=== PATIENT | male | born 1960 | race Caucasian/White ===

== ENCOUNTER 2021-08-27 09:22 | Inpatient (IN) | payer SELFPAY ==
[2021-08-27] VITALS (64 sets, daily range): BP systolic 101–142; BP diastolic 55–80; PULSE 74–116; RESP 11–28; TEMP 36.4–37.3; O2SAT 93–100; BMI 21.4
--- NOTE | 2021-08-27 09:33 | DI.RAD.S_ITS ---
PROCEDURE: XR CHEST 1V INDICATIONS: chest pain TECHNIQUE: One view of the chest was acquired. COMPARISON: None. FINDINGS: Surgical changes and devices: Sternotomy wires and mediastinal clips are seen. Lungs and pleura: Lungs are clear. No pleural effusions or pneumothorax. Mediastinum: Mediastinal contours appear normal. Heart size is normal. Bones and chest wall: No suspicious bony lesions. Overlying soft tissues appear unremarkable. IMPRESSION: No acute abnormality is seen on this portable chest study. Sternotomy wires and mediastinal clips can be seen. Dictated by: Tyshawn Nix M.D. on 08/27/2021 at 9:15 Approved by: Tyshawn Nix M.D. on 08/27/2021 at 9:17
--- NOTE | 2021-08-27 09:36 | ED_ITS ---
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 Patient is not anticoagulated but has been taking Goody powders regularly recently. who comes emergency department with complaint of thoracic back pain radiating around to the front for the past week. Patient states he was getting tightness in his chest. He denies any shortness of breath does have some pleuritic discomfort. He was seen at [facility] and started on azithromycin and Augmentin as well as Zofran and Percocet. Patient has continued to have persistent symptoms he develops nausea and vomiting starting SundayAugust 24, patient initially had constipation was given laxatives and then developed black discolored stools and diarrhea. He has had 1 episode of syncope today while throwing up. He states he is having some difficulty with urination starting and emptying his bladder but that had resolved. He denies any pain radiating down his legs he has had some numbness and tingling which she describes is new. Patient is visiting the area from [place]. His medication list includes amlodipine, atorvastatin, carvedilol, dapsone, Lasix, isosorbide, losartan, pantoprazole and spironolactone. He does not take an aspirin, Plavix or other daily thinners according him in his Related Data Home Medications Medication Instructions Recorded Confirmed amlodipine 5 mg tablet 1 tab PO BID 08/27/21 08/27/21 atorvastatin 20 mg tablet 1 tab PO DAILY 08/27/21 08/27/21 carvedilol 6.25 mg tablet 1 tab PO BID 08/27/21 08/27/21 dapsone 100 mg tablet 1 tab PO DAILY 08/27/21 08/27/21 isosorbide dinitrate 5 mg tablet 1 tab PO BID 08/27/21 08/27/21 losartan 50 mg tablet 1 tab PO DAILY 08/27/21 08/27/21 pantoprazole 40 mg tablet,delayed 1 tab PO DAILY 08/27/21 08/27/21 release spironolactone 25 mg tablet 1 tab PO DAILY 08/27/21 08/27/21 Allergies Allergy/AdvReac Type Severity Reaction Status Date / Time No Known Drug Allergies Allergy Verified 08/27/21 09:34 Review of Systems Review of Systems ROS Unobtainable: All systems reviewed & are unremarkable except as noted in HPI and below Patient History Medical History (Updated 08/27/21 @ 15:08 by Tracy Day MD) CAD (coronary artery disease) Gastric ulcer Gluten enteropathy Hyperlipidemia Hypertension Surgical History (Updated 08/27/21 @ 15:08 by Tracy Day MD) History of nephrectomy Hx of CABG Family History (Updated 08/27/21 @ 15:12 by Tracy Day MD) Mother Stroke Father Stroke Social History household members: spouse Smoking Status: Current every day smoker Smoking Status: Current every day smoker tobacco type: cigarettes alcohol intake frequency: holidays/special occasions only Substance Use Type: does not use Exam Narrative Exam Narrative: GEN: Pale-appearing male, alert and oriented x 3, patient appears to be in moderate distress. HEENT: Atraumatic, pupils are equal round reactive to light, extraocular movements are intact, nares are clear, positive for conjunctival pallor. Throat is clear without any exudates, erythema, tonsillar enlargement or uvular deviation, no facial droop. HEART: Regular rate and rhythm without murmur, clicks, rubs. Pulses are equal in upper and lower extremities. LUNGS:Lungs clear to auscultation, no wheezes, rales, crackles, chest moves symmetrically, No no tachypnea accessory muscle use. ABD:bowel sounds normal, soft, non-tender, no guarding, rebound, rigidity, no masses noted, no hepatosplenomegaly, stool occult is positive. Patient has hard stool on rectal exam. No pulsatile mass or bruit noted. :No CVA tenderness BACK: No cervical, thoracic or lumbar vertebral point tenderness. Patient has normal range of motion. MSCL: Non-tender, no muscle atrophy, muscles strength 5/5 upper and lower extremities, full range of motion NEURO:CN 2-12 intact, sensation normal Initial Vital Signs Initial Vital Signs: Vital Signs Temperature 97.6 F 08/27/21 09:23 Pulse Rate 96 H 08/27/21 09:23 Respiratory Rate 15 08/27/21 09:23 Blood Pressure 106/59 L 08/27/21 09:23 Pulse Oximetry 100 08/27/21 09:23 Oxygen Delivery Method 08/27/21 09:23 Course Orders Ordered: ED Orders 08/27/21 09:28 Complete Blood Count AUTO DIFF Stat Comprehensive Metabolic Panel Stat Lipase Stat Magnesium Stat Partial Thromboplastin Time Stat Prothrombin Time INR Stat Troponin & CK Cardiac Panel Stat 08/27/21 09:33 XR chest 1V Stat EKG-12 Lead Stat 08/27/21 09:39 COVID19 -Nasal RAPID/Pre-Proc Stat 08/27/21 09:53 CT angio chest abdomen pelvis Stat 08/27/21 09:56 Blood Culture Stat PRBC [Packed Cells] Stat Type and Screen Stat 08/27/21 11:31 Trop I [Troponin I] Stat 08/27/21 11:45 Procalcitonin Stat 08/27/21 16:12 Lactate (Lactic Acid) Stat Dapsone (Dapsone 100 Mg Tablet) 100 mg PO BID [facility] Hydromorphone HCl (Hydromorphone 0.5 Mg Inj) 0.5 mg IV Q4H PRN PRN Reason: Breakthrough pain only (8-10) Last Admin: 08/27/21 15:53 Dose: 0.5 mg Documented By: LEE Piperacillin Sod/Tazobactam (Sod 3.375 gm/ Sodium Chloride) 100 mls @ 25 mls/hr IV Q8H [facility] Last Admin: 08/27/21 16:15 Dose: 25 mls/hr Documented By: LEE Metronidazole (Flagyl) 500 mg in 100 mls @ 100 mls/hr IV Q8H [facility] Naloxone HCl (Naloxone 0.4 Mg/Ml Vial) 0.2 mg IV Q2MIN PRN PRN Reason: Opiate Reversal Ondansetron HCl (Ondansetron 4 Mg/2 Ml Inj) 4 mg IV Q6HR PRN PRN Reason: Nausea And Vomiting Last Admin: 08/27/21 16:04 Dose: 4 mg Documented By: LEE Pantoprazole Sodium (Pantoprazole 40 Mg Vial) 40 mg IV BID [facility] Discontinued Medications Fentanyl (Fentanyl 100 Mcg/2 Ml Inj) 50 mcg IV NOW ONE Stop: 08/27/21 09:55 Last Admin: 08/27/21 10:11 Dose: 50 mcg Documented By: RAYNA Sodium Chloride (Normal Saline 0.9%) 1,000 mls @ 500 mls/hr IV BOLUS ONE Stop: 08/27/21 11:52 Last Infusion: 08/27/21 10:59 Dose: 0 mls/hr Documented By: Admin: 08/27/21 10:12 Dose: 500 mls/hr Documented By: RAYNA Metronidazole (Flagyl) 500 mg in 100 mls @ 100 mls/hr IV NOW ONE Stop: 08/27/21 11:49 Last Infusion: 08/27/21 12:28 Dose: 0 mls/hr Documented By: RAYNA(2) Admin: 08/27/21 11:04 Dose: 100 mls/hr Documented By: RAYNA Levofloxacin (Levaquin) 750 mg in 150 mls @ 100 mls/hr IV NOW ONE Stop: 08/27/21 12:19 Last Infusion: 08/27/21 12:48 Dose: 0 mls/hr Documented By: Admin: 08/27/21 11:04 Dose: 100 mls/hr Documented By: RAYNA Sodium Chloride (Normal Saline 0.9%) 2,121 mls @ 707 mls/hr 30 ml/kg infuse over 3 hr (2121 ml) IV NOW ONE Stop: 08/27/21 13:51 Last Infusion: 08/27/21 12:52 Dose: 0 mls/hr Documented By: Admin: 08/27/21 11:05 Dose: 707 mls/hr Documented By: RAYNA Morphine Sulfate (Morphine 4 Mg/Ml Inj) 4 mg IV NOW ONE Stop: 08/27/21 12:08 Last Admin: 08/27/21 12:09 Dose: 4 mg Documented By: RAYNA Ondansetron HCl (Ondansetron 4 Mg/2 Ml Inj) 4 mg IV NOW ONE Stop: 08/27/21 09:55 Last Admin: 08/27/21 10:11 Dose: 4 mg Documented By: RAYNA Pantoprazole Sodium (Pantoprazole 40 Mg Vial) 80 mg IV NOW ONE Stop: 08/27/21 09:54 Last Admin: 08/27/21 10:11 Dose: 80 mg Documented By: RAYNA Consultations Consultation #1: Dr. Herrera in department to evalute patient. Continue with Protonix, transfuse and scope either today or tomorrow. Will hold on surgical treatment at this moment as potential perforation would be small. Consultation #2: Dr. Day, hospitalist accepts for admission. Vital Signs Vital signs: Vital Signs - 8 hr 08/27/21 09:49 08/27/21 09:49 08/27/21 10:00 Temperature Pulse Rate 102 H Respiratory Rate 16 Blood Pressure 111/60 112/58 L Pulse Oximetry 95 08/27/21 10:00 08/27/21 10:15 08/27/21 10:15 Temperature Pulse Rate 100 H 107 H Respiratory Rate 20 16 Blood Pressure 106/57 L Pulse Oximetry 95 94 08/27/21 10:30 08/27/21 10:32 08/27/21 10:32 Temperature Pulse Rate 97 H 101 H Respiratory Rate 13 13 Blood Pressure 120/56 L Pulse Oximetry 93 95 08/27/21 10:45 08/27/21 10:45 08/27/21 11:00 Temperature Pulse Rate 95 H Respiratory Rate 14 Blood Pressure 120/59 L 126/60 Pulse Oximetry 95 08/27/21 11:00 08/27/21 11:15 08/27/21 11:15 Temperature Pulse Rate 98 H 107 H Respiratory Rate 14 16 Blood Pressure 110/66 Pulse Oximetry 96 97 08/27/21 11:30 08/27/21 11:30 08/27/21 11:50 Temperature 99.1 F Pulse Rate 107 H 112 H Respiratory Rate 15 12 Blood Pressure 115/67 115/68 Pulse Oximetry 97 08/27/21 11:55 08/27/21 11:59 08/27/21 11:45 Temperature 99.1 F 98.6 F Pulse Rate 110 H 112 H Respiratory Rate 20 18 Blood Pressure 116/68 142/69 H 115/68 Pulse Oximetry 08/27/21 11:45 08/27/21 11:55 08/27/21 11:55 Temperature 99.1 F 98.6 F Pulse Rate 111 H 111 H Respiratory Rate 14 14 Blood Pressure 116/68 Pulse Oximetry 97 98 08/27/21 12:00 08/27/21 12:00 08/27/21 12:15 Temperature 98.6 F 98.6 F Pulse Rate 113 H Respiratory Rate 16 Blood Pressure 142/69 H 114/61 Pulse Oximetry 98 08/27/21 12:15 Temperature Pulse Rate 116 H Respiratory Rate 13 Blood Pressure Pulse Oximetry 96 MDM - Weakness Lab Data Result diagrams: 08/27/21 09:28 08/27/21 09:28 Labs: Lab Results 08/27/21 08/27/21 08/27/21 Range/Units 09:28 09:28 09:28 WBC 17.6 H (4.5-11.0) X10^3/uL RBC 1.84 L (4.5-5.9) X10^6/uL Hgb 6.5 L* (13.5-17.5) g/dL Hct 19.0 L* (41-53) % MCV 103.5 H (80-100) fL MCH 35.5 H (26-34) PG MCHC 34.3 (30-36) % RDW 13.5 (11.6-14.8) % Plt Count 327 (150-400) X10^3/uL Neut % (Auto) 84.0 H (50-75) % Lymph % (Auto) 11.2 L (25-40) % [place] % (Auto) 4.2 (3-14) % Eos % (Auto) 0.1 L (2-4) % Baso % (Auto) 0.5 (0-2) % Neut # (Auto) 13694 H (8220-2744) /uL Lymph # (Auto) 2000 (1725-1684) /uL [place] # (Auto) 700 (0-900) /uL Eos # (Auto) 0 (0-450) /uL Baso # (Auto) 100 (0-100) /uL PT 12.3 (10.1-12.7) SECONDS INR 1.1 (0.9-1.3) APTT 26 L (26.4-36.2) SECONDS Sodium 127 L (137-145) mmol/L Potassium 4.4 (3.4-5.1) mmol/L Chloride 96 L (98-107) mmol/L Carbon Dioxide 24 (22-32) mmol/L BUN 47 H (9-20) mg/dL Creatinine 1.56 H (0.66-1.25) mg/dL Estimated GFR 51 L (>60) mL/min BUN/Creatinine Ratio 30.1 H (6-22) Glucose 220 H (70-100) mg/dL Calcium 8.1 L (8.4-10.2) mg/dL Magnesium 2.2 (1.6-2.3) mg/dL Total Bilirubin 0.3 (0.2-1.3) mg/dL AST 23 (17-59) IU/L ALT 20 (<50) IU/L Alkaline Phosphatase 57 (38-126) U/L Total Creatine Kinase 21 L (55-170) U/L CK-MB (CK-2) TNP CK-MB (CK-2) Rel Index TNP Troponin I < 0.012 (0.01-0.034) ng/mL Total Protein 5.3 L (6.3-8.2) g/dL Albumin 3.0 L (3.5-5.0) g/dL Globulin 2.3 (1.7-4.1) g/dL Albumin/Globulin Ratio 1.3 (1.0-2.8) Lipase 15 L (23-300) U/L Procalcitonin (<0.5) ng/mL SARS-CoV-2 (PCR) (Negative) Blood Type Antibody Screen Crossmatch 08/27/21 08/27/21 08/27/21 Range/Units 09:39 09:56 11:31 WBC (4.5-11.0) X10^3/uL RBC (4.5-5.9) X10^6/uL Hgb (13.5-17.5) g/dL Hct (41-53) % MCV (80-100) fL MCH (26-34) PG MCHC (30-36) % RDW (11.6-14.8) % Plt Count (150-400) X10^3/uL Neut % (Auto) (50-75) % Lymph % (Auto) (25-40) % [place] % (Auto) (3-14) % Eos % (Auto) (2-4) % Baso % (Auto) (0-2) % Neut # (Auto) (2317-6899) /uL Lymph # (Auto) (5008-6856) /uL [place] # (Auto) (0-900) /uL Eos # (Auto) (0-450) /uL Baso # (Auto) (0-100) /uL PT (10.1-12.7) SECONDS INR (0.9-1.3) APTT (26.4-36.2) SECONDS Sodium (137-145) mmol/L Potassium (3.4-5.1) mmol/L Chloride (98-107) mmol/L Carbon Dioxide (22-32) mmol/L BUN (9-20) mg/dL Creatinine (0.66-1.25) mg/dL Estimated GFR (>60) mL/min BUN/Creatinine Ratio (6-22) Glucose (70-100) mg/dL Calcium (8.4-10.2) mg/dL Magnesium (1.6-2.3) mg/dL Total Bilirubin (0.2-1.3) mg/dL AST (17-59) IU/L ALT (<50) IU/L Alkaline Phosphatase (38-126) U/L Total Creatine Kinase (55-170) U/L CK-MB (CK-2) CK-MB (CK-2) Rel Index Troponin I < 0.012 (0.01-0.034) ng/mL Total Protein (6.3-8.2) g/dL Albumin (3.5-5.0) g/dL Globulin (1.7-4.1) g/dL Albumin/Globulin Ratio (1.0-2.8) Lipase (23-300) U/L Procalcitonin (<0.5) ng/mL SARS-CoV-2 (PCR) Negative (Negative) Blood Type O Positive Antibody Screen Negative Crossmatch See Detail 08/27/21 Range/Units 11:45 WBC (4.5-11.0) X10^3/uL RBC (4.5-5.9) X10^6/uL Hgb (13.5-17.5) g/dL Hct (41-53) % MCV (80-100) fL MCH (26-34) PG MCHC (30-36) % RDW (11.6-14.8) % Plt Count (150-400) X10^3/uL Neut % (Auto) (50-75) % Lymph % (Auto) (25-40) % [place] % (Auto) (3-14) % Eos % (Auto) (2-4) % Baso % (Auto) (0-2) % Neut # (Auto) (0451-8769) /uL Lymph # (Auto) (0083-6900) /uL [place] # (Auto) (0-900) /uL Eos # (Auto) (0-450) /uL Baso # (Auto) (0-100) /uL PT (10.1-12.7) SECONDS INR (0.9-1.3) APTT (26.4-36.2) SECONDS Sodium (137-145) mmol/L Potassium (3.4-5.1) mmol/L Chloride (98-107) mmol/L Carbon Dioxide (22-32) mmol/L BUN (9-20) mg/dL Creatinine (0.66-1.25) mg/dL Estimated GFR (>60) mL/min BUN/Creatinine Ratio (6-22) Glucose (70-100) mg/dL Calcium (8.4-10.2) mg/dL Magnesium (1.6-2.3) mg/dL Total Bilirubin (0.2-1.3) mg/dL AST (17-59) IU/L ALT (<50) IU/L Alkaline Phosphatase (38-126) U/L Total Creatine Kinase (55-170) U/L CK-MB (CK-2) CK-MB (CK-2) Rel Index Troponin I (0.01-0.034) ng/mL Total Protein (6.3-8.2) g/dL Albumin (3.5-5.0) g/dL Globulin (1.7-4.1) g/dL Albumin/Globulin Ratio (1.0-2.8) Lipase (23-300) U/L Procalcitonin 0.95 H (<0.5) ng/mL SARS-CoV-2 (PCR) (Negative) Blood Type Antibody Screen Crossmatch Imaging Data CT chest/abd/pelvis: Radiologist Impression: 86 ? Kirstie Hong, DO [facility] Routine Call Back Main ED ?10? My List ?5? Waiting ?1? Surge ED ?0? R02? Tenzler? Irene? 61 F? With Nurse? 1h 13m? 4-Less Urgent? ?? Skin/Abscess/Foreign Body? rash on arms/face? ?? No Time Seen? REG ER? No Document? Sign Up Rika Baird Order BP 208/103 Pulse 90 Resp 14 Temp 99.2 F O2 Sat 99% (RA) R04? Pokrova? Lux? 24 M? With Doctor? 1h 41m? 4-Less Urgent? ?? Extremity Injury, Lower? poss. broken ankles/heel? ?? 08/27/21 10:02? REG ER? Draft? Kirstie Baird ? Order BP 139/63 Pulse 89 Resp 14 Temp 98.6 F O2 Sat 98% (RA) Imaging MAR R05? Hills? Kaylyn? 74 F? With Doctor? 3h 16m? 3-Urgent? ?? Abdominal Pain? right lower abd pain? ?? 08/27/21 07:57? REG ER? Draft? Kirstie Baird ? Order BP 149/69 Pulse 54 Resp 18 Temp O2 Sat 95% Urinalysis... ?Chem Lipase Sta... ?Complete B... Imaging NPO Diet EKG-12 [facility]... Cardiac mo... R06? Jitendra? Catracho? 87 M? With Doctor? 29m? 4-Less Urgent? ?? Eye Problems? Eye drainage,jaw pain,COVID 9 days ago.? ?? 08/27/21 10:34? REG ER? Draft? Kirstie Baird visual acuity please Order BP 132/60 Pulse 72 Resp 18 Temp 98 F O2 Sat 93% (RA) MAR Complete B... Chem C-Reactive... Erythrocyt... R07? [place]? José? 11 M? In Room? 1h 37m? 4-Less Urgent? ?? Upper Respiratory Symptoms? fever day 3 stuffy nose sob? ISO, C19S/S? No Time Seen? REG ER? No Document? Sign Up Tracy Daugherty Order BP Pulse 104 Resp 18 Temp 97.5 F O2 Sat 98% (RA) POC/[place] Respirator... R08? Rosy? Gigi? 60 M? Pending Admission? 1h 30m? 2-Emergent? ?? Syncope? weakness, vomitting, passed out? ?? 08/27/21 09:34? REG ER? Draft? Kirstie Daugherty needs repeat trop 1130am? Order BP 120/56 Pulse 101 Resp 13 Temp O2 Sat 95% ?Troponin &... COVID19 -N... ?Lipase Sta... ?Complete B... ?Chem Magnesium ... ?Partial Th... Prothrombi... Imaging MAR Cardiac mo... NPO Diet EKG-12 [facility]... Microbiolo... Packed Hailey... Type and S... Lactate (L... Procalcito... R10? Giuliano Marin? Neris? 64 F? In Room? 14m? No Chief Complaint? sharp pain in lower back hurts to take deep breath? ?? No Time Seen? REG ER? No Document? Sign Up Order NPO Diet Lipase Sta... Partial Th... Prothrombi... EKG-12 [facility]... Complete B... Chem Cardiac mo... POC/[place] Imaging R11? Tiarra? Gigi? 86 M? Boarding? 8h 12m? 3-Urgent? ?? Urogenital-Male? Hematuria? ?? 08/27/21 02:45? REG ER? Draft? Kirstie Daugherty FFP ordered. need recheck h/h and type and screen if still here at 1430 Order BP 162/69 Pulse Resp Temp O2 Sat ?Complete B... ?Prothrombi... ?Chem Imaging ?Hemoglobin... COVID19 -N... ?Urinalysis... ABO RH Typ... MAR Microbiolo... Fresh Froz... R12? Elizabeth Walker? Suzanne? 83 F? In Room? 38m? 4-Less Urgent? ?? Upper Respiratory Symptoms? COUGH SORE THROAT DIZZY BALANCE OFF? Sepsis? No Time Seen? REG ER? No Document? Sign Up Kerri Daugherty Order BP 167/67 Pulse 99 Resp 24 Temp 102.5 F O2 Sat 95% (RA) MAR COVID19 -N... Complete B... Lipase Sta... Partial Th... Prothrombi... NPO Diet Chem Magnesium ... Troponin &... EKG-12 [facility]... Cardiac mo... Imaging Lactate (L... NPO Diet Procalcito... Microbiolo... WRoom? Wiscomb? Guero? 74 F? Registered? 8m? No Chief Complaint? rectal bleeding abd cramps diareha? ?? No Time Seen? REG ER? No Document? Sign Up Order Imaging - CT angio chest abdomen pelvis; XR chest 1V Gigi Gallegos??60??M??1960 ? Allergy/Adv: No Known Drug Allergies Close Results Imaging ACTIVITY DATE EXAM STATUS AUTHOR 08/27/21 09:53 Chest/Abdomen/Pelvis CTA Signed Joaquina Nixe 08/27/21 09:33 Chest X-Ray Signed DinahTyshawn Imaging Reports Close Chest/Abdomen/Pelvis CTA (Signed) Joaquina Nixe - 08/27/21 Chest X-Ray (Signed) DinahTyshawn - 08/27/21 Launch?[id number] [id number] CT Scan Report Signed Patient: Gigi Gallegos MR#: [id number] : 1960 Acct:[id number] Age/Sex: 60 / M Date of Service: 08/27/21 Loc: ED Accession Number: [id number] ?? Procedure: CT angio chest abdomen pelvis Ordering Provider: Kirstie Hong D.O. PROCEDURE:? CT ANGIO CHEST ABDOMEN PELVIS ? INDICATIONS:? thoracic chest/back pain x 1 week, low hgb ? TECHNIQUE:? Precontrast 5 mm thick sections acquired from the lung apices to the iliac crests.? After the administration of intravenous contrast, 2.5 mm thick sections again acquired from the lung apices to the iliac crests.? Maximum intensity projection (MIP) oblique sagittal and coronal reformats were then acquired.? For radiation dose reduction, the following was used:? automated exposure control.? ? COMPARISON:? [facility], CR, XR CHEST 1V, 08/27/2021, 9:56. ? FINDINGS:? Image quality:? Excellent.? ? AORTA:? On precontrast imaging, no hyperdense mural hematomas are seen.? On postcontrast imaging, the aorta demonstrates normal caliber, without dissection or aneurysm. ? ? CHEST:? Lungs and pleura:? No acute airspace opacities.? No pleural effusions or pneumothorax.? Central and peripheral airways are patent and normal in caliber.? ? Mediastinum:? Sternotomy wires and mediastinal clips are seen.? Moderate coronary artery calcification is seen.? Heart size is normal.? No pericardial effusion.? No mediastinal or hilar adenopathy by size criteria.? Central pulmonary arteries are normal in size.? Esophagus is normal in caliber.? No hiatal hernias.? ? Bones and chest wall:? No axillary adenopathy by size criteria.? Thyroid gland demonstrates no significant abnormality.? No suspicious bony lesions.? No vertebral body compression fractures.? ? ? ABDOMEN:? Vasculature:? Celiac trunk and mesenteric arteries are patent.? Renal arteries are also patent.? ? Solid organs:? Liver is normal in size and enhancement.? Gallbladder has been removed.? Biliary system is non dilated.? Pancreas enhances normally.? Spleen is normal in size and enhancement. Incidental note is made of an accessory splenule along the anterior aspect of the primary spleen.? No adrenal nodules.? ? This patient is status post left nephrectomy.? No abnormal soft tissue can be seen within the left nephrectomy bed.? At the inferior pole of the right kidney, there is an area poor enhancement seen.? The right kidney is otherwise unremarkable.? There is no right-sided hydronephrosis. Peritoneum and bowel:? Focal wall thickening is seen involving the distal stomach, with minimal surrounding inflammatory change.? There is apparent extraluminal gas seen involving the distal stomach adjacent to the inferior liver, which is best seen on series 9, image 30, yet also seen on series 5, image 159. No dilated loops of small bowel are seen. Distal colonic diverticulosis is seen, without active diverticulitis.? No additional significant colonic abnormality is seen. ? Nodes and vessels:? No retroperitoneal or mesenteric adenopathy by size criteria.? Inferior vena cava is normal in morphology.? ? Miscellaneous:? A mild periumbilical hernia is seen, containing fat. ? ? ? PELVIS:? Genitourinary:? Bladder wall thickness is normal.? ? Miscellaneous:? No inguinal adenopathy.? Fat containing bilateral inguinal hernias are seen, left larger than right.? No ventral hernias.? ? There is approximately 50% narrowing seen involving right common iliac artery and the right proximal external iliac artery and the right distal external iliac artery.? An additional approximately 50% narrowing can be seen involving the right common femoral artery.? Generalized osteoporotic irregularity can be seen on the left, yet without a hemodynamically significant stenosis. ? Superficial femoral artery stents are partially seen on both sides, which are occluded.? The profunda femoris arteries are widely patent. ? Bones:? No suspicious bony lesions.? No vertebral body compression fractures.? Mild levoconvex scoliotic curvature is noted.? Age-appropriate bony degenerative changes are seen.? IMPRESSION:? Normal aorta, without aneurysm or dissection. ? Negative for hemorrhage. ? There is wall thickening seen involving the distal stomach, with adjacent apparent extraluminal gas.? Differential diagnosis includes a distal gastric diver ticulum, yet this is considered to be much less likely.? ? Several areas of approximately 50% narrowing can be seen involving the right iliac system and the right common femoral artery. ? Bilateral occluded superficial femoral artery stents are partially seen. ? At the inferior pole of the solitary right kidney, there is an area of poor enhancement.? Please consider pyelonephritis. ? ? ? Incidental note is made of: Apparent CABG Moderate coronary artery calcification Cholecystectomy Accessory splenule Left nephrectomy Levoconvex scoliotic curvature Diverticulosis, without active diverticulitis Fat containing periumbilical hernia Bilateral fat containing inguinal hernias ? Note: Case discussed by telephone with Dr. Hong at 9:50 a.m. [place] time on August 27, 2021.? Dictated by: Tyshawn Nix M.D. on 08/27/2021 at 9:40 ? ? Approved by: Tyshawn Nix M.D. on 08/27/2021 at 9:50?? ECG Data Attestation: I personally reviewed and interpreted this ECG as follows: Prior ECG tracings: not available for review Interpretation: Sinus rhythm rate of 75 VA 152, QRS 86 and QTC 439. Patient has 1 mm elevation in V1, less than 0.5 mm in V2 with no additional ST changes in terms of elevation, he has inverted T-wave depression in lateral leads V4 through 6 and 1 aVL. Patient does not have priors for comparison. We did obtain records from [facility] but it is not included their documentation. [facility] Narrative Medical decision making narrative: This is a 60-year-old male who comes in with complaint of thoracic back pain wrapping around to the anterior chest who was seen at [facility] had reportedly workup with elevated white count, normal INR, hemoglobin of 11.1 on 08/25/2021 with a normal lactate, but normal liver enzymes and a negative troponin and creatinine of 1.4. CTA chest abdomen pelvis was obtained and was negative for dissection they noted a right lobe consolidation patient was started antibiotics according to the chart. On recheck patient is hypotensive with syncopal episode persistent thoracic chest pain without shortness of breath, patient does have some ST depression with 1 lead of elevation that is 1 mm but no priors for comparison. His hemoglobin is noted to be 6 today significant drop from 11 in the last 2 days. Patient is agreeable to transfusion. He is not anticoagulated but does have a cardiac history also has a history significant for prior perforated ulcer, has positive stool occult on exam has been taking Goody powders which have aspirin in them regularly and CT imaging was again obtained to evaluate for perforation although dissection aneurysm still in the differential far less likely with a negative CT [address] shows possible small perforation, thickening but no dissection, aneurysm, occluded stents in bilateral lower extremities but are suspected to be older patient is not acutely symptomatic. Patient seen in the department by Dr. Herrera, feels for physical white small and will continue to monitor with plan to scope probably tomorrow. Spoke with Dr. Day hospitalist who accepts for admission. Critical Care Time Critical Care Time Critical Care Time: Yes Total Critical Care Time: 45 Attestation: The high probability of a clinically significant, sudden or life threatening deterioration of the [septic, cardiac, pulm] system(s) required my full and direct attention, intervention and personal management. The aggregate critical care time was [45] minutes. This time is in addition to time spent performing reported procedures but includes the following: [x] Data Review and interpretation [x] Patient assessment and monitoring of vital signs [x] Documentation [x] Medication orders and management Discharge Plan Departure Patient Disposition: Admitted As Inpatient Clinical Impression: Gastric perforation, Symptomatic anemia, Occlusion of stent of peripheral artery GI bleed Qualifiers: GI bleed type/associated pathology: gastrointestinal hemorrhage with hematemesis Qualified Code(s): K92.0 - Hematemesis Admit Date/Time: 08/27/21 12:17 Admit Provider: Tracy Day
[2021-08-27 09:46] LABS: Add Manual Diff / Slide Review NO; Basophils Absolute Auto 100 /uL (0-100); Basophils Percent Auto 0.5 % (0-2); Eosinophils Absolute Auto 0 /uL (0-450); Eosinophils Percent Auto 0.1 % (2-4); Hemoglobin 6.5 g/dL (13.5-17.5); Lymphocytes Absolute Auto 2000 /uL (1100-4500); Lymphocytes Percent Auto 11.2 % (25-40); Mean Corpuscular HGB Conc 34.3 % (30-36); Mean Corpuscular Hemoglobin 35.5 PG (26-34); Mean Corpuscular Volume 103.5 fL (80-100); Monocytes Absolute Auto 700 /uL (0-900); Monocytes Percent Auto 4.2 % (3-14); Neutrophils Absolute Auto 14800 /uL (1500-7000); Platelet Count 327 X10^3/uL (150-400); Red Blood Cell Count 1.84 X10^6/uL (4.5-5.9); Red Cell Distribution Width 13.5 % (11.6-14.8); White Blood Cell Count 17.6 X10^3/uL (4.5-11.0)
--- NOTE | 2021-08-27 09:53 | DI.CT.S_ITS ---
PROCEDURE: CT ANGIO CHEST ABDOMEN PELVIS INDICATIONS: thoracic chest/back pain x 1 week, low hgb TECHNIQUE: Precontrast 5 mm thick sections acquired from the lung apices to the iliac crests. After the administration of intravenous contrast, 2.5 mm thick sections again acquired from the lung apices to the iliac crests. Maximum intensity projection (MIP) oblique sagittal and coronal reformats were then acquired. For radiation dose reduction, the following was used: automated exposure control. COMPARISON: [facility], CR, XR CHEST 1V, 08/27/2021, 9:56. FINDINGS: Image quality: Excellent. AORTA: On precontrast imaging, no hyperdense mural hematomas are seen. On postcontrast imaging, the aorta demonstrates normal caliber, without dissection or aneurysm. CHEST: Lungs and pleura: No acute airspace opacities. No pleural effusions or pneumothorax. Central and peripheral airways are patent and normal in caliber. Mediastinum: Sternotomy wires and mediastinal clips are seen. Moderate coronary artery calcification is seen. Heart size is normal. No pericardial effusion. No mediastinal or hilar adenopathy by size criteria. Central pulmonary arteries are normal in size. Esophagus is normal in caliber. No hiatal hernias. Bones and chest wall: No axillary adenopathy by size criteria. Thyroid gland demonstrates no significant abnormality. No suspicious bony lesions. No vertebral body compression fractures. ABDOMEN: Vasculature: Celiac trunk and mesenteric arteries are patent. Renal arteries are also patent. Solid organs: Liver is normal in size and enhancement. Gallbladder has been removed. Biliary system is non dilated. Pancreas enhances normally. Spleen is normal in size and enhancement. Incidental note is made of an accessory splenule along the anterior aspect of the primary spleen. No adrenal nodules. This patient is status post left nephrectomy. No abnormal soft tissue can be seen within the left nephrectomy bed. At the inferior pole of the right kidney, there is an area poor enhancement seen. The right kidney is otherwise unremarkable. There is no right-sided hydronephrosis. Peritoneum and bowel: Focal wall thickening is seen involving the distal stomach, with minimal surrounding inflammatory change. There is apparent extraluminal gas seen involving the distal stomach adjacent to the inferior liver, which is best seen on series 9, image 30, yet also seen on series 5, image 159. No dilated loops of small bowel are seen. Distal colonic diverticulosis is seen, without active diverticulitis. No additional significant colonic abnormality is seen. Nodes and vessels: No retroperitoneal or mesenteric adenopathy by size criteria. Inferior vena cava is normal in morphology. Miscellaneous: A mild periumbilical hernia is seen, containing fat. PELVIS: Genitourinary: Bladder wall thickness is normal. Miscellaneous: No inguinal adenopathy. Fat containing bilateral inguinal hernias are seen, left larger than right. No ventral hernias. There is approximately 50% narrowing seen involving right common iliac artery and the right proximal external iliac artery and the right distal external iliac artery. An additional approximately 50% narrowing can be seen involving the right common femoral artery. Generalized osteoporotic irregularity can be seen on the left, yet without a hemodynamically significant stenosis. Superficial femoral artery stents are partially seen on both sides, which are occluded. The profunda femoris arteries are widely patent. Bones: No suspicious bony lesions. No vertebral body compression fractures. Mild levoconvex scoliotic curvature is noted. Age-appropriate bony degenerative changes are seen. IMPRESSION: Normal aorta, without aneurysm or dissection. Negative for hemorrhage. There is wall thickening seen involving the distal stomach, with adjacent apparent extraluminal gas. Differential diagnosis includes a distal gastric diverticulum, yet this is considered to be much less likely. Several areas of approximately 50% narrowing can be seen involving the right iliac system and the right common femoral artery. Bilateral occluded superficial femoral artery stents are partially seen. At the inferior pole of the solitary right kidney, there is an area of poor enhancement. Please consider pyelonephritis. Incidental note is made of: Apparent CABG Moderate coronary artery calcification Cholecystectomy Accessory splenule Left nephrectomy Levoconvex scoliotic curvature Diverticulosis, without active diverticulitis Fat containing periumbilical hernia Bilateral fat containing inguinal hernias Note: Case discussed by telephone with Dr. Hong at 9:50 a.m. [place] time on August 27, 2021. Dictated by: Tyshawn Nix M.D. on 08/27/2021 at 9:40 Approved by: Tyshawn Nix M.D. on 08/27/2021 at 9:50
[2021-08-27 09:54] LABS: INR 1.1 (0.9-1.3); Prothrombin Time 12.3 SECONDS (10.1-12.7)
[2021-08-27 09:56] LABS: PTT Partial Thromboplastin Tim 26 SECONDS (26.4-36.2)
[2021-08-27 09:58] LABS: Alanine Aminotransferase 20 IU/L (<50); Albumin Globulin Ratio 1.3 (1.0-2.8); Alkaline Phosphatase 57 U/L (38-126); Aspartate Aminotransferase 23 IU/L (17-59); BUN Creatinine Ratio 30.1 (6-22); Bilirubin Total 0.3 mg/dL (0.2-1.3); Blood Urea Nitrogen 47 mg/dL (9-20); Calcium 8.1 mg/dL (8.4-10.2); Carbon Dioxide 24 mmol/L (22-32); Chloride 96 mmol/L (98-107); Creatine Kinase 21 U/L (55-170); Estimated Glomerular Filt Rate 51 mL/min (>60); Globulin 2.3 g/dL (1.7-4.1); Glucose 220 mg/dL (70-100); HEMOLYSIS < 15 (0-50); Lipase 15 U/L (23-300); Magnesium 2.2 mg/dL (1.6-2.3); Potassium 4.4 mmol/L (3.4-5.1); Sodium 127 mmol/L (137-145); Total Protein 5.3 g/dL (6.3-8.2)
[2021-08-27 10:09] LABS: Troponin I < 0.012 ng/mL (0.01-0.034)
[2021-08-27] MEDS: ONDANSETRON 4 MG/2 ML INJ IV ×2 (10:11→16:04)
[2021-08-27] MEDS: PANTOPRAZOLE 40 MG VIAL 80 MG IV (10:11)
[2021-08-27] MEDS: fentaNYL 100 MCG/2 ML INJ 50 MCG IV (10:11)
[2021-08-27] MEDS: SODIUM CHLORIDE 0.9% 1,000 ML 500 ML IV (10:12)
[2021-08-27 10:19] LABS: COVID19 -Nasal RAPID Negative (Negative)
[2021-08-27] MEDS: levoFLOXacin 750 MG/150 ML PIGGYBACK 100 MG IV (11:04)
[2021-08-27] MEDS: metroNIDAZOLE 500 MG/100 ML PIGGYBACK 100 MG IV ×2 (11:04→18:44)
[2021-08-27] MEDS: SODIUM CHLORIDE 0.9% 2,121 ML 707 ML IV (11:05)
[2021-08-27 12:03] LABS: Troponin I < 0.012 ng/mL (0.01-0.034)
[2021-08-27] MEDS: MORPHINE 4 MG/ML INJ IV (12:09)
--- NOTE | 2021-08-27 12:27 | PM.CN ---
History of Present Illness Consult details Date Patient Seen: 08/27/21 Time Patient Seen: 12:27 Chief complaint: weakness, vomitting, passed out Narrative: 60-year-old man visiting from [place] presents for syncope, weakness and back pain. He was seen at [facility] several days ago for back pain. Apparently his hemoglobin there was 11. Since then he has had melena and vomited black liquid a few times. According to his he has also vomited some clear liquid. He had a perforated peptic ulcer 2 years ago requiring an exploratory laparotomy. He smokes about a pack a day and takes Goody Powder. He denies frequent alcohol consumption. He has had multiple coronary artery bypass grafts. He does not take any anticoagulants. He had a CT scan performed here shows inflammation of the distal stomach. There is question of extraluminal air adjacent to the distal gastric wall on the radiology report but there is no extensive free air throughout the abdomen. His hemoglobin today is 6.5. He did eat a banana this morning. Meds Home Medications and Allergies Allergies Allergy/AdvReac Type Severity Reaction Status Date / Time No Known Drug Allergies Allergy Verified 08/27/21 09:34 Exam Vital Signs (past 8 hours): - 08/27/21 09:23 08/27/21 09:26 08/27/21 09:26 Temperature 97.6 F Pulse Rate 96 H 74 Respiratory Rate 15 Blood Pressure 106/59 L 127/80 Pulse Oximetry 100 95 Oxygen Delivery Method Room Air 08/27/21 09:30 08/27/21 09:30 08/27/21 09:40 Temperature Pulse Rate 97 H Respiratory Rate 15 Blood Pressure 106/59 L 108/59 L Pulse Oximetry 95 Oxygen Delivery Method 08/27/21 09:40 08/27/21 09:49 08/27/21 09:49 Temperature Pulse Rate 94 H 102 H Respiratory Rate 17 16 Blood Pressure 111/60 Pulse Oximetry 94 95 Oxygen Delivery Method 08/27/21 10:00 08/27/21 10:00 08/27/21 10:15 Temperature Pulse Rate 100 H Respiratory Rate 20 Blood Pressure 112/58 L 106/57 L Pulse Oximetry 95 Oxygen Delivery Method 08/27/21 10:15 08/27/21 10:30 08/27/21 10:32 Temperature Pulse Rate 107 H 97 H Respiratory Rate 16 13 Blood Pressure 120/56 L Pulse Oximetry 94 93 Oxygen Delivery Method 08/27/21 10:32 08/27/21 10:45 08/27/21 10:45 Temperature Pulse Rate 101 H 95 H Respiratory Rate 13 14 Blood Pressure 120/59 L Pulse Oximetry 95 95 Oxygen Delivery Method 08/27/21 11:00 08/27/21 11:00 08/27/21 11:15 Temperature Pulse Rate 98 H Respiratory Rate 14 Blood Pressure 126/60 110/66 Pulse Oximetry 96 Oxygen Delivery Method 08/27/21 11:15 08/27/21 11:30 08/27/21 11:30 Temperature Pulse Rate 107 H 107 H Respiratory Rate 16 15 Blood Pressure 115/67 Pulse Oximetry 97 97 Oxygen Delivery Method 08/27/21 11:50 08/27/21 11:55 08/27/21 11:59 Temperature 99.1 F 99.1 F 98.6 F Pulse Rate 112 H 110 H 112 H Respiratory Rate 12 20 18 Blood Pressure 115/68 116/68 142/69 H Pulse Oximetry Oxygen Delivery Method 08/27/21 11:45 08/27/21 11:45 08/27/21 11:55 Temperature 99.1 F Pulse Rate 111 H 111 H Respiratory Rate 14 14 Blood Pressure 115/68 Pulse Oximetry 97 98 Oxygen Delivery Method 08/27/21 11:55 Temperature 98.6 F Pulse Rate Respiratory Rate Blood Pressure 116/68 Pulse Oximetry Oxygen Delivery Method Oxygen Delivery Method Room Air Const Other: Fatigued but able to answer questions Resp Effort & Inspection: normal respiratory effort GI Other: No peritoneal findings Moderately distended Midline scar Objective Labs Result Diagrams: 08/27/21 09:28 08/27/21 09:28 Labs: Laboratory Results - last 24 hr 08/27/21 08/27/21 08/27/21 09:28 09:28 09:28 WBC 17.6 H RBC 1.84 L Hgb 6.5 L* Hct 19.0 L* MCV 103.5 H MCH 35.5 H MCHC 34.3 RDW 13.5 Plt Count 327 Neut % (Auto) 84.0 H Lymph % (Auto) 11.2 L [place] % (Auto) 4.2 Eos % (Auto) 0.1 L Baso % (Auto) 0.5 Neut # (Auto) 95197 H Lymph # (Auto) 2000 [place] # (Auto) 700 Eos # (Auto) 0 Baso # (Auto) 100 PT 12.3 INR 1.1 APTT 26 L Sodium 127 L Potassium 4.4 Chloride 96 L Carbon Dioxide 24 BUN 47 H Creatinine 1.56 H Estimated GFR 51 L BUN/Creatinine Ratio 30.1 H Glucose 220 H Calcium 8.1 L Magnesium 2.2 Total Bilirubin 0.3 AST 23 ALT 20 Alkaline Phosphatase 57 Total Creatine Kinase 21 L CK-MB (CK-2) TNP CK-MB (CK-2) Rel Index TNP Troponin I < 0.012 Total Protein 5.3 L Albumin 3.0 L Globulin 2.3 Albumin/Globulin Ratio 1.3 Lipase 15 L SARS-CoV-2 (PCR) Blood Type Antibody Screen Crossmatch 08/27/21 08/27/21 08/27/21 09:39 09:56 11:31 WBC RBC Hgb Hct MCV MCH MCHC RDW Plt Count Neut % (Auto) Lymph % (Auto) [place] % (Auto) Eos % (Auto) Baso % (Auto) Neut # (Auto) Lymph # (Auto) [place] # (Auto) Eos # (Auto) Baso # (Auto) PT INR APTT Sodium Potassium Chloride Carbon Dioxide BUN Creatinine Estimated GFR BUN/Creatinine Ratio Glucose Calcium Magnesium Total Bilirubin AST ALT Alkaline Phosphatase Total Creatine Kinase CK-MB (CK-2) CK-MB (CK-2) Rel Index Troponin I < 0.012 Total Protein Albumin Globulin Albumin/Globulin Ratio Lipase SARS-CoV-2 (PCR) Negative Blood Type O Positive Antibody Screen Negative Crossmatch See Detail [facility] Tobacco & Substance Use Smoking Status: Current every day smoker Assessment & Plan Assessment and plan (1) GI bleed: Qualifiers: GI bleed type/associated pathology: gastrointestinal hemorrhage with hematemesis Qualified Code(s): K92.0 - Hematemesis Status: Acute Plan Most likely upper GI bleed from a gastric ulcer. No reason to suspect free perforation based on physical exam and my interpretation of the CT scan. Recommend transfusion. No benefit in performing an EGD at this time because his stomach is rather full and it would likely be difficult to visualize much. If he becomes hypotensive he would need emergency surgery. If he stabilizes he would undergo an EGD in the next 1-2 days. Recommend NPO for now. Recommend IV PPI therapy. Time Spent With Patient Critical Care time: I spent a total of [] minutes of critical care time on this patient's care today; this time is exclusive of procedural time.
--- NOTE | 2021-08-27 13:09 | PC.NURSE ---
Day shift: Pt on AC unit at approx 1300 from ED. Moaning with pain upon arrival. C/o mid to low back pain. His spouse in room for support. Blood transfusing per MD orders. Pt was just seen by Dr Herrera. HR 111 and BP 105/60. RA 96%. Oriented to room and call light. Pt will be a high fall risk for now. Pt does have tattoos on all four limbs. Bed alarm is on and call light in reach.
--- NOTE | 2021-08-27 13:32 | PC.NURSE ---
Advance direction/living will: per , pt doesn't have one. Information given. admission complete. blood transfusion going and IVF infusing. pt groggy, alert and oriented. Moaning, laying on left side. skin pale. HR 107
[2021-08-27 14:06] LABS: Procalcitonin 0.95 ng/mL (<0.5)
--- NOTE | 2021-08-27 14:57 | P.HP_ITS ---
History of Present Illness History of Present Illness Date Patient Seen: 08/27/21 Chief complaint: weakness, vomitting, passed out Narrative: The patient is a 60-year-old male With a history of hypertension, hyperlipidemia, coronary disease status coronary artery bypass graft, recent diagnosis of right lower lobe pneumonia, history of allergies to gluten, and a history of gastric ulcer. The patient was seen at [facility] 2 days ago. He was diagnosed at that time with right lower lobe pneumonia celiac and PATRICIA stenosis, and leukocytosis. He was started on Augmentin and azithromycin in discharge. The patient has a history of stents in the lower extremities, in addition to a history of a perforated gastric ulcer requiring surgery, as well as a solitary kidney. The patient has not been anticoagulated. He does report taking Goody powders recently. He presented to the emergency room today with complaints of back pain radiating to the front for weak. He also complained of tightness in his chest. He denied any shortness of breath. The patient also reports emesis, he had some hematemesis. He states that he passed out after throwing up. When it [facility] his hemoglobin was 11, repeat hemoglobin here at [facility] was 6 g. Patient is admitted to the hospital for an upper GI bleed, acute blood loss anemia, and probable recurrent gastric ulcer Patient History Medical History (Updated 08/27/21 @ 15:08 by Tracy Day MD) CAD (coronary artery disease) Gastric ulcer Gluten enteropathy Hyperlipidemia Hypertension Surgical History (Updated 08/27/21 @ 15:08 by Tracy Day MD) History of nephrectomy Hx of CABG Family & Social History Family History (Updated 08/27/21 @ 15:12 by Tracy Day MD) Mother Stroke Father Stroke Social History: household members spouse Safety & Behavioral: Feels Safe in Current Yes Environment Been Physically Hurt or No Threatened By a Person Tobacco & Substance use: Tobacco type cigarettes Smoking Status Current every day smoker Smoking packs per day 1 alcohol intake frequency holiday/special occasion Substance Use Type does not use Meds Home Medications and Allergies Home Medications Medication Instructions Recorded Confirmed Type amlodipine 5 mg tablet 1 tab PO BID 08/27/21 08/27/21 History atorvastatin 20 mg tablet 1 tab PO DAILY 08/27/21 08/27/21 History carvedilol 6.25 mg tablet 1 tab PO BID 08/27/21 08/27/21 History dapsone 100 mg tablet 1 tab PO DAILY 08/27/21 08/27/21 History isosorbide dinitrate 5 mg tablet 1 tab PO BID 08/27/21 08/27/21 History losartan 50 mg tablet 1 tab PO DAILY 08/27/21 08/27/21 History pantoprazole 40 mg tablet,delayed 1 tab PO DAILY 08/27/21 08/27/21 History release spironolactone 25 mg tablet 1 tab PO DAILY 08/27/21 08/27/21 History Allergies Allergy/AdvReac Type Severity Reaction Status Date / Time No Known Drug Allergies Allergy Verified 08/27/21 09:34 Review of Systems Review of Systems Narrative: Patient complained of chest pain earlier, none currently Further 10 point review of systems is negative Exam Vital Signs (past 8 hours): - 08/27/21 09:23 08/27/21 09:26 08/27/21 09:26 Temperature 97.6 F Pulse Rate 96 H 74 Respiratory Rate 15 Blood Pressure 106/59 L 127/80 Pulse Oximetry 100 95 Oxygen Delivery Method Room Air Oxygen Flow Rate 08/27/21 09:30 08/27/21 09:30 08/27/21 09:40 Temperature Pulse Rate 97 H Respiratory Rate 15 Blood Pressure 106/59 L 108/59 L Pulse Oximetry 95 Oxygen Delivery Method Oxygen Flow Rate 08/27/21 09:40 08/27/21 09:49 08/27/21 09:49 Temperature Pulse Rate 94 H 102 H Respiratory Rate 17 16 Blood Pressure 111/60 Pulse Oximetry 94 95 Oxygen Delivery Method Oxygen Flow Rate 08/27/21 10:00 08/27/21 10:00 08/27/21 10:15 Temperature Pulse Rate 100 H Respiratory Rate 20 Blood Pressure 112/58 L 106/57 L Pulse Oximetry 95 Oxygen Delivery Method Oxygen Flow Rate 08/27/21 10:15 08/27/21 10:30 08/27/21 10:32 Temperature Pulse Rate 107 H 97 H Respiratory Rate 16 13 Blood Pressure 120/56 L Pulse Oximetry 94 93 Oxygen Delivery Method Oxygen Flow Rate 08/27/21 10:32 08/27/21 10:45 08/27/21 10:45 Temperature Pulse Rate 101 H 95 H Respiratory Rate 13 14 Blood Pressure 120/59 L Pulse Oximetry 95 95 Oxygen Delivery Method Oxygen Flow Rate 08/27/21 11:00 08/27/21 11:00 08/27/21 11:15 Temperature Pulse Rate 98 H Respiratory Rate 14 Blood Pressure 126/60 110/66 Pulse Oximetry 96 Oxygen Delivery Method Oxygen Flow Rate 08/27/21 11:15 08/27/21 11:30 08/27/21 11:30 Temperature Pulse Rate 107 H 107 H Respiratory Rate 16 15 Blood Pressure 115/67 Pulse Oximetry 97 97 Oxygen Delivery Method Oxygen Flow Rate 08/27/21 11:50 08/27/21 11:55 08/27/21 11:59 Temperature 99.1 F 99.1 F 98.6 F Pulse Rate 112 H 110 H 112 H Respiratory Rate 12 20 18 Blood Pressure 115/68 116/68 142/69 H Pulse Oximetry Oxygen Delivery Method Oxygen Flow Rate 08/27/21 11:45 08/27/21 11:45 08/27/21 11:55 Temperature 99.1 F Pulse Rate 111 H 111 H Respiratory Rate 14 14 Blood Pressure 115/68 Pulse Oximetry 97 98 Oxygen Delivery Method Oxygen Flow Rate 08/27/21 11:55 08/27/21 12:00 08/27/21 12:00 Temperature 98.6 F 98.6 F Pulse Rate 113 H Respiratory Rate 16 Blood Pressure 116/68 142/69 H Pulse Oximetry 98 Oxygen Delivery Method Oxygen Flow Rate 08/27/21 12:15 08/27/21 12:15 08/27/21 12:30 Temperature 98.6 F Pulse Rate 116 H Respiratory Rate 13 Blood Pressure 114/61 113/60 Pulse Oximetry 96 Oxygen Delivery Method Oxygen Flow Rate 08/27/21 12:30 08/27/21 12:45 08/27/21 12:45 Temperature 98.6 F Pulse Rate 111 H 113 H Respiratory Rate 15 14 Blood Pressure 119/63 Pulse Oximetry 95 96 Oxygen Delivery Method Oxygen Flow Rate 08/27/21 13:00 08/27/21 14:20 08/27/21 14:21 Temperature 98.0 F 97.7 F 97.7 F Pulse Rate 111 H 108 H 108 H Respiratory Rate 16 16 16 Blood Pressure 101/64 111/64 111/64 Pulse Oximetry 97 Oxygen Delivery Method Oxygen Flow Rate 0 08/27/21 14:27 08/27/21 13:00 Temperature 98.4 F 98.1 F Pulse Rate 109 H Respiratory Rate 18 Blood Pressure 114/57 L Pulse Oximetry Oxygen Delivery Method Oxygen Flow Rate Oxygen Delivery Method Room Air Oxygen Flow Rate 0 Narrative Exam Narrative: Ill-appearing male lying in bed in no distress [facility] Other: Normocephalic atraumatic, extraocular muscles are intact, oropharynx clear, neck is supple Resp Other: Lungs: Clear to auscultation Cardio Other: Cardiac exam: Regular rate and rhythm normal S1-S2 GI Other: Abdomen: Soft, tender in the midepigastric area, no rebound tenderness, no board-like rigidity, no palpable masses Neuro Other: Nonfocal Extrem Other: No edema Psych Other: Patient is awake alert and appropriate Objective Labs Result Diagrams: 08/27/21 09:28 08/27/21 09:28 Labs: Laboratory Results - last 24 hr 08/27/21 08/27/21 08/27/21 09:28 09:28 09:28 WBC 17.6 H RBC 1.84 L Hgb 6.5 L* Hct 19.0 L* MCV 103.5 H MCH 35.5 H MCHC 34.3 RDW 13.5 Plt Count 327 Neut % (Auto) 84.0 H Lymph % (Auto) 11.2 L Lake % (Auto) 4.2 Eos % (Auto) 0.1 L Baso % (Auto) 0.5 Neut # (Auto) 16317 H Lymph # (Auto) 2000 Lake # (Auto) 700 Eos # (Auto) 0 Baso # (Auto) 100 PT 12.3 INR 1.1 APTT 26 L Sodium 127 L Potassium 4.4 Chloride 96 L Carbon Dioxide 24 BUN 47 H Creatinine 1.56 H Estimated GFR 51 L BUN/Creatinine Ratio 30.1 H Glucose 220 H Calcium 8.1 L Magnesium 2.2 Total Bilirubin 0.3 AST 23 ALT 20 Alkaline Phosphatase 57 Total Creatine Kinase 21 L CK-MB (CK-2) TNP CK-MB (CK-2) Rel Index TNP Troponin I < 0.012 Total Protein 5.3 L Albumin 3.0 L Globulin 2.3 Albumin/Globulin Ratio 1.3 Lipase 15 L Procalcitonin SARS-CoV-2 (PCR) Blood Type Antibody Screen Crossmatch 08/27/21 08/27/21 08/27/21 09:39 09:56 11:31 WBC RBC Hgb Hct MCV MCH MCHC RDW Plt Count Neut % (Auto) Lymph % (Auto) Lake % (Auto) Eos % (Auto) Baso % (Auto) Neut # (Auto) Lymph # (Auto) Lake # (Auto) Eos # (Auto) Baso # (Auto) PT INR APTT Sodium Potassium Chloride Carbon Dioxide BUN Creatinine Estimated GFR BUN/Creatinine Ratio Glucose Calcium Magnesium Total Bilirubin AST ALT Alkaline Phosphatase Total Creatine Kinase CK-MB (CK-2) CK-MB (CK-2) Rel Index Troponin I < 0.012 Total Protein Albumin Globulin Albumin/Globulin Ratio Lipase Procalcitonin SARS-CoV-2 (PCR) Negative Blood Type O Positive Antibody Screen Negative Crossmatch See Detail 08/27/21 11:45 WBC RBC Hgb Hct MCV MCH MCHC RDW Plt Count Neut % (Auto) Lymph % (Auto) Lake % (Auto) Eos % (Auto) Baso % (Auto) Neut # (Auto) Lymph # (Auto) Lake # (Auto) Eos # (Auto) Baso # (Auto) PT INR APTT Sodium Potassium Chloride Carbon Dioxide BUN Creatinine Estimated GFR BUN/Creatinine Ratio Glucose Calcium Magnesium Total Bilirubin AST ALT Alkaline Phosphatase Total Creatine Kinase CK-MB (CK-2) CK-MB (CK-2) Rel Index Troponin I Total Protein Albumin Globulin Albumin/Globulin Ratio Lipase Procalcitonin 0.95 H SARS-CoV-2 (PCR) Blood Type Antibody Screen Crossmatch Assessment & Plan Assessment & Plan narrative: 60-year-old male with a history of coronary artery disease, history of CABG, hypertension, hyperlipidemia, gluten enteropathy, history of gastric ulcer requiring surgical repair, presents today with acute abdominal pain, possible gastric perforation, upper GI bleed with acute blood loss anemia -patient had a drop in his hemoglobin/hematocrit from 02/15 to now 6.5/19 -patient with eryn hematemesis, high risk for significant upper GI bleed -patient is receiving 2 units of packed RBCs -patient received IV Protonix 80 mg in the emergency room -he initially received IV hydration as well which is being held during his transfusion -CT of abdomen and pelvis There is wall thickening seen involving the distal stomach, with adjacent apparent extraluminal gas.? Differential diagnosis includes a distal gastric diverticu lum, this is considered to be much less likely.? ? Several areas of approximately 50% narrowing can be seen involving the right iliac system and the right common femoral artery. ? Bilateral occluded superficial femoral artery stents are partially seen. ? At the inferior pole of the solitary right kidney, there is an area of poor enhancement.? Please consider pyelonephritis. Acute upper GI bleed, with associated acute blood loss anemia Dr. Herrera from General surgery has been consulted, patient will be kept NPO, with plans for upper endoscopy tomorrow If the patient becomes hemodynamically unstable urgent surgical repair will be on entertained Will obtain serial H&H, transfuse with a goal of a hemoglobin of greater than 8 Coronary bypass graft -patient complained of chest pain earlier, likely related to underlying anemia and upper GI bleed -initial troponin negative, will repeat, no evidence of acute ischemia -will hold carvedilol, isosorbide dinitrate, given his acute upper GI bleed and possible concern for hypotension Hyponatremia -likely multifactorial -suspect secondary to spironolactone -will hold blood pressure medications, spironolactone, losartan, Coreg, and amlodipine given his acute upper GI bleed -will follow up sodium tomorrow Chronic kidney disease stage 3 -patient had a creatinine of 1.59 3 days ago at [facility] -suspect this is his baseline -will avoid nephrotoxic agent Hyperlipidemia -patient is NPO, will hold statin, resume once able to take p.o. Gluten enteropathy -will hold dapsone at this time as the patient is NPO Recent right lower lobe pneumonia * Patient was treated with Augmentin and azithromycin as an outpatient * Given the possibility of gastric perforation on CT scan, will start Zosyn 3.375 q.6, in addition to Flagyl, for improved /anaerobic coverage Hypertension * Patient usually takes amlodipine, losartan, and spironolactone * Given his acute upper GI bleed, and marginal blood pressure, will hold all blood pressure medications at this time, yet will resume when blood pressure stabilizes Bilateral lower extremity stents,/peripheral vascular disease No evidence femoral artery occlusion, no intervention needed at this time -patient reports he is a full code, his is his surrogate decision maker. -I have utilized all available methods to review update confirm the patient's current medication -patient is admitted as an inpatient, anticipate greater than 48 hours due to his underlying clinical condition Time Spent With Patient Critical Care time: I spent a total of [] minutes of critical care time on this patient's care today; this time is exclusive of procedural time. Quality VTE Deep Vein Thrombosis/Pulmonary Embolism Present on Admission: No
--- NOTE | 2021-08-27 15:05 | PC.NURSE ---
Day shift: Report given to Lisa (DIVISION MANAGER) and Pt is now in room 227 ICU. all of Pt's belongings are in the new room with Pt. Pt's Spouse has also been informed of the move.
[2021-08-27] MEDS: HYDROMORPHONE 0.5 MG INJ IV ×3 (15:53→21:58)
[2021-08-27] MEDS: PIPERACILLIN/TAZO 3.375 GM in SODIUM CHLORIDE 0.9% 100 ML IV ×2 (16:15→22:44)
--- NOTE | 2021-08-27 16:17 | PC.NURSE ---
Addendum entered by Suki Canseco R.N. 08/27/21 18:55: Serial labs for troponin and CBC overnight. Addendum entered by Suki Canseco R.N. 08/27/21 18:46: 3rd unit of PRBC infusing. Pt reporting increased pain, increased frequency of IV Dilaudid. ABD/epigastric pain and R scapula/back pain. at bedside and updated about POC and evening labs to monitor Pt status. Addendum entered by Suki Canseco R.N. 08/27/21 17:13: Completed 2nd unit of PRBC, labs drawn for repeat CBC. Clarified with Dr Day, no consult for teleintensivist. Pt is resting more comfortably that start of shift. Rates pain 4/10 at rest. Dozing off and on. Original Note: 1520-Assumed care of patient Pt is resting and groaning with occasional moaning of pain. Grabbing at abd occasionally. Rating pain to abd and R side an 8/10. Medicated with Dilaudid. Pt reports management of pain, but grimacing. Declines other intervention at present. 2nd unit of blood infusing. Lactate and cardiac panel drawn.
[2021-08-27 16:31] LABS: Creatine Kinase 28 U/L (55-170)
[2021-08-27 16:32] LABS: Lactate (Lactic Acid) 0.7 mmol/L (0.7-2.1)
[2021-08-27 16:44] LABS: Troponin I 0.088 ng/mL (0.01-0.034)
[2021-08-27 17:46] LABS: Hematocrit 21.8 % (41-53); Hemoglobin 7.4 g/dL (13.5-17.5)
[2021-08-27] MEDS: HYDROMORPHONE 0.5 MG INJ (18:44)
[2021-08-27] MEDS: PANTOPRAZOLE 40 MG VIAL IV (21:00)
--- NOTE | 2021-08-27 21:30 | PC.NURSE ---
Addendum entered by Sherly Mejía R.N. 08/28/21 06:14: 0600-Patient has had no bleeding through the night. H/H dropped a little but patient remains hemodynamically stable. Patient does continue to have significant pain to his back and abdomen. Medicated through the night per orders. Voiding without difficulty and remains afebrile. Two units of blood avialable if needed in the blood bank. Triponin continues to trend up, MD aware. Lungs are clear to auscultation with some end expiratory wheezes bilaterally. Patient has bowel tones to all four quadrants. Abdomen is distended and tender. Original Note: 2130- Third unit of blood infused. Labs sent per orders. Patient states his pain is tolerable at this time. Abdomen is bloated with tendernes throughout. Vitals remain stable at this time. Will monitor closely.
[2021-08-27 21:39] LABS: Add Manual Diff / Slide Review NO; Basophils Absolute Auto 100 /uL (0-100); Basophils Percent Auto 0.4 % (0-2); Creatine Kinase 37 U/L (55-170); Eosinophils Absolute Auto 0 /uL (0-450); Eosinophils Percent Auto 0.2 % (2-4); Hemoglobin 8.2 g/dL (13.5-17.5); Lymphocytes Absolute Auto 1500 /uL (1100-4500); Lymphocytes Percent Auto 10.1 % (25-40); Mean Corpuscular HGB Conc 34.3 % (30-36); Mean Corpuscular Hemoglobin 33.2 PG (26-34); Mean Corpuscular Volume 96.6 fL (80-100); Monocytes Absolute Auto 1000 /uL (0-900); Monocytes Percent Auto 6.9 % (3-14); Neutrophils Absolute Auto 12100 /uL (1500-7000); Neutrophils Percent Auto 82.4 % (50-75); Platelet Count 196 X10^3/uL (150-400); Red Blood Cell Count 2.49 X10^6/uL (4.5-5.9); Red Cell Distribution Width 16.2 % (11.6-14.8); White Blood Cell Count 14.6 X10^3/uL (4.5-11.0)
[2021-08-27 22:17] LABS: Troponin I 0.412 ng/mL (0.01-0.034)
[2021-08-28] VITALS (105 sets, daily range): BP systolic 107–161; BP diastolic 51–107; PULSE 61–135; RESP 9–22; TEMP 36.6–37.6; O2SAT 91–100; BMI 21.4
--- NOTE | 2021-08-28 | PATH_ITS ---
[facility] Accession Number: [id number] . 01 Material submitted: . stomach - ANTRUM . 01 Diagnosis: Stomach, Antrum, Biopsy: Antral and body-type mucosa with mild chronic gastritis. Negative for Helicobacter by immunohistochemistry. Negative for intestinal metaplasia. Negative for dysplasia and malignancy. [facility] 09/01/2021 1616 Local . 01 Electronically signed: . Carol Willis MD, Pathologist NPI- [id number] . 01 Gross description: . ANTRUM: Received in formalin is 1 fragment(s) of kern, soft tissue measuring 0.4 x 0.3 x 0.3 cm submitted entirely in 1 cassette(s) /QJ 08/30/2021 0744 Local . 01 Microscopic: . An immunohistochemical stain was performed to evaluate for Helicobacter organisms and is negative. The control stain showed appropriate reactivity. . * This test was developed and its performance characteristics determined by [facility]. It has not been cleared or approved by the U.S. Food and Drug Administration. The FDA has determined that such clearance or approval is not necessary. This test is used for clinical purposes. It should not be regarded as investigational or for research. . 01 Pathologist provided ICD-10: K92.0 . 01 CPT . 675621, G20430 Specimen Comment: A courtesy copy of this report has been sent to [facility] Performed at: 01 [facility] [address] [place] [address], [id number] MD Pako Bowers MD Phone: [phone]
[2021-08-28] MEDS: HYDROMORPHONE 0.5 MG INJ IV ×8 (01:02→18:44)
[2021-08-28] MEDS: metroNIDAZOLE 500 MG/100 ML PIGGYBACK 100 MG IV (02:51)
[2021-08-28 05:16] LABS: Add Manual Diff / Slide Review NO; Basophils Absolute Auto 0 /uL (0-100); Basophils Percent Auto 0.3 % (0-2); Eosinophils Absolute Auto 100 /uL (0-450); Eosinophils Percent Auto 0.7 % (2-4); Hemoglobin 7.7 g/dL (13.5-17.5); Lymphocytes Absolute Auto 1200 /uL (1100-4500); Lymphocytes Percent Auto 10.9 % (25-40); Mean Corpuscular HGB Conc 34.2 % (30-36); Mean Corpuscular Hemoglobin 33.4 PG (26-34); Mean Corpuscular Volume 97.6 fL (80-100); Monocytes Absolute Auto 700 /uL (0-900); Monocytes Percent Auto 6.4 % (3-14); Neutrophils Absolute Auto 9000 /uL (1500-7000); Neutrophils Percent Auto 81.7 % (50-75); Platelet Count 190 X10^3/uL (150-400); Red Blood Cell Count 2.29 X10^6/uL (4.5-5.9); Red Cell Distribution Width 16.5 % (11.6-14.8)
[2021-08-28 05:23] LABS: Hematocrit 22.4 % (41-53)
[2021-08-28 05:29] LABS: Alanine Aminotransferase 25 IU/L (<50); Albumin 2.5 g/dL (3.5-5.0); Albumin Globulin Ratio 1.1 (1.0-2.8); Alkaline Phosphatase 46 U/L (38-126); Aspartate Aminotransferase 27 IU/L (17-59); BUN Creatinine Ratio 26.3 (6-22); Bilirubin Total 0.3 mg/dL (0.2-1.3); Blood Urea Nitrogen 36 mg/dL (9-20); Calcium 7.7 mg/dL (8.4-10.2); Carbon Dioxide 26 mmol/L (22-32); Chloride 105 mmol/L (98-107); Estimated Glomerular Filt Rate 59 mL/min (>60); Globulin 2.3 g/dL (1.7-4.1); Glucose 101 mg/dL (80-110); HEMOLYSIS < 15 (0-50); Potassium 3.9 mmol/L (3.4-5.1); Sodium 133 mmol/L (137-145); Total Protein 4.8 g/dL (6.3-8.2)
[2021-08-28 05:45] LABS: Troponin I 0.431 ng/mL (0.01-0.034)
[2021-08-28] MEDS: PIPERACILLIN/TAZO 3.375 GM in SODIUM CHLORIDE 0.9% 100 ML IV (06:54)
[2021-08-28] MEDS: PANTOPRAZOLE 40 MG VIAL IV ×2 (07:46→21:01)
--- NOTE | 2021-08-28 09:15 | PM.PREOP ---
Pre-operative Note COVID-19 COVID-19 status: Negative Result date/Date tested (Pos, Neg/Pending): 08/27/21 Interval Note History & Physical reviewed/Exam performed by Physician: Yes Changes to H&P: Yes H&P completed within 30 days and has changed as indicated here:: Decreased abdominal pain but hemoglobin continues to drift down after 4 units ASA Class (for procedural sedation): III
[2021-08-28] MEDS: LACTATED RINGERS 1,000 ML 150 ML IV (09:34)
--- NOTE | 2021-08-28 10:36 | PM.OP.EGD ---
Operative Date/Time/Diagnoses Date of procedure: 08/28/21 Time of procedure: 10:36 Pre-op diagnosis: Upper GI bleed Post-op diagnosis: same Procedure & Clinicians Study performed: Esophagogastroduodenoscopy Same procedure as scheduled: Yes Surgeon: Darrius Herrera Procedure Notes Procedure in detail: Surgeon: Darrius Herrera MD A timeout was performed. General endotracheal anesthesia was induced. A bite block was positioned. The endoscope was inserted through the bite block and passed through the esophagus and stomach. There was some old blood and clot in the stomach that was suctioned. After some irrigation and suctioning we could see a large ulcer in the duodenal bulb. This also had a large adherent clot that was left undisturbed. There was no significant active bleeding. The scope could not be passed beyond the duodenal bulb due to the angulation of the duodenum there. There was also some erythema and old ulcers in the antrum but these did not appear to be likely sources of GI bleeding. There was a fair amount of old clot in the fundus which could not be completely suctioned out. The scope was retroflexed but we could not see the hiatus due to the old clot in the proximal stomach. A few random biopsies were taken from the antrum away from the ulcer edge so as not to provoke any additional bleeding. The scope was then straightened and withdrawn into distal esophagus which was normal. The remainder of the esophagus was normal. The scope was withdrawn. The patient was awakened and brought to recovery. Findings: Large ulcer in the duodenal bulb with adherent clot and no significant active bleeding, patchy erythema in the antrum and old small ulcers in the antrum. Specimens: Random biopsies from the antrum Post-procedure Plan for aftercare: Continue PPI therapy and frequent close monitoring of vital signs and hemoglobin levels until levels stabilize Avoid aspirin and NSAIDs Avoid tobacco products Disposition: PACU
--- NOTE | 2021-08-28 10:47 | P.TELICUCN_ITS ---
History of Present Illness Consult details Chief complaint: weakness, vomitting, passed out Narrative: Patient is a 61 year old male with history of gastric ulcer, CAD, and HTN presents with melena and coffee ground emesis evaluation. Associated wiht generalized weakness and back pain. On admission, CT abdomen/pelvis showed thickening wall in distal stomach with adjacent extraluminal gas. Hemoglobin drifted down to 6.5 and he was transfused a unit of PRBC. Transferred to ICU for further managment. [facility] Medical History (Updated 08/27/21 @ 15:08 by Tracy Day MD) CAD (coronary artery disease) Gastric ulcer Gluten enteropathy Hyperlipidemia Hypertension Surgical History (Updated 08/27/21 @ 15:08 by Tracy Day MD) History of nephrectomy Hx of CABG Family History (Updated 08/27/21 @ 15:12 by Tracy Day MD) Mother Stroke Father Stroke Social History household members: spouse Smoking Status: Current every day smoker Current Medications Current Medications Medications: Home Medications amlodipine 5 mg tablet 1 tab PO BID 08/27/21 [History Confirmed 08/27/21] atorvastatin 20 mg tablet 1 tab PO DAILY 08/27/21 [History Confirmed 08/27/21] carvedilol 6.25 mg tablet 1 tab PO BID 08/27/21 [History Confirmed 08/27/21] dapsone 100 mg tablet 1 tab PO DAILY 08/27/21 [History Confirmed 08/27/21] isosorbide dinitrate 5 mg tablet 1 tab PO BID 08/27/21 [History Confirmed 08/27/21] losartan 50 mg tablet 1 tab PO DAILY 08/27/21 [History Confirmed 08/27/21] pantoprazole 40 mg tablet,delayed release 1 tab PO DAILY 08/27/21 [History Confirmed 08/27/21] spironolactone 25 mg tablet 1 tab PO DAILY 08/27/21 [History Confirmed 08/27/21] Visit Medications (administered) Generic Name Dose Route Start Last Admin Trade Name Freq PRN Reason Stop Dose Admin Dapsone 100 mg 08/27/21 21:00 08/28/21 09:08 Dapsone 100 Mg Tablet PO Not Given BID EVELINA Hydromorphone HCl 0.5 mg 08/27/21 18:08 08/28/21 07:46 Hydromorphone 0.5 Mg Inj IV 0.5 mg Q2HR PRN Administration Pain, Severe (7-10) Piperacillin Sod/Tazobactam 100 mls @ 25 mls/hr 08/27/21 15:00 08/28/21 06:54 Sod 3.375 gm/ Sodium Chloride IV 25 mls/hr Q8H EVELINA Administration Metronidazole 500 mg in 100 mls @ 100 mls/hr 08/27/21 19:00 08/28/21 04:54 Flagyl IV Infused Q8H EVELINA Infusion Lactated Ringer's 1,000 mls @ 150 mls/hr 08/28/21 09:45 08/28/21 09:34 Lactated Ringers IV 150 mls/hr CONT EVELINA Administration Ondansetron HCl 4 mg 08/27/21 14:48 08/27/21 16:04 Ondansetron 4 Mg/2 Ml Inj IV 4 mg Q6HR PRN Administration Nausea And Vomiting Pantoprazole Sodium 40 mg 08/27/21 21:00 08/28/21 07:46 Pantoprazole 40 Mg Vial IV 40 mg BID EVELINA Administration Exam Vital Signs (past 8 hours): - 08/28/21 04:50 08/28/21 03:00 08/28/21 03:00 Temperature Pulse Rate 102 H Respiratory Rate 11 L Blood Pressure 123/64 Pulse Oximetry 96 Oxygen Delivery Method Room Air 08/28/21 03:15 08/28/21 03:30 08/28/21 03:45 Temperature Pulse Rate 103 H 103 H 103 H Respiratory Rate 15 15 10 L Blood Pressure Pulse Oximetry 94 96 97 Oxygen Delivery Method 08/28/21 04:00 08/28/21 04:00 08/28/21 04:15 Temperature Pulse Rate 99 H 97 H Respiratory Rate 10 L 9 L Blood Pressure 123/56 L Pulse Oximetry 95 93 Oxygen Delivery Method 08/28/21 04:30 08/28/21 04:45 08/28/21 05:00 Temperature Pulse Rate 100 H 99 H Respiratory Rate 12 14 Blood Pressure 113/55 L Pulse Oximetry 96 96 Oxygen Delivery Method 08/28/21 05:00 08/28/21 05:15 08/28/21 05:30 Temperature Pulse Rate 99 H 98 H 102 H Respiratory Rate 13 12 14 Blood Pressure Pulse Oximetry 95 95 96 Oxygen Delivery Method 08/28/21 05:45 08/28/21 06:00 08/28/21 06:00 Temperature Pulse Rate 96 H 93 H Respiratory Rate 11 L 12 Blood Pressure 118/56 L Pulse Oximetry 92 94 Oxygen Delivery Method 08/28/21 07:00 08/28/21 07:00 08/28/21 08:00 Temperature Pulse Rate 96 H Respiratory Rate 13 Blood Pressure 127/58 L 123/57 L Pulse Oximetry 94 Oxygen Delivery Method 08/28/21 08:00 08/28/21 08:48 08/28/21 09:21 Temperature 98.1 F Pulse Rate 96 H 100 H Respiratory Rate 12 16 Blood Pressure 127/67 Pulse Oximetry 94 98 Oxygen Delivery Method Room Air Room Air 08/28/21 08:15 08/28/21 08:30 08/28/21 08:45 Temperature Pulse Rate 112 H 112 H 97 H Respiratory Rate 19 20 12 Blood Pressure Pulse Oximetry 97 96 95 Oxygen Delivery Method 08/28/21 09:00 08/28/21 09:00 08/28/21 10:39 Temperature 98.6 F Pulse Rate 98 H 100 H Respiratory Rate 11 L 14 Blood Pressure 119/55 L 119/55 L Pulse Oximetry 96 98 Oxygen Delivery Method Room Air 08/28/21 10:43 Temperature Pulse Rate 108 H Respiratory Rate 18 Blood Pressure 122/59 L Pulse Oximetry 97 Oxygen Delivery Method Room Air Oxygen Delivery Method Room Air Oxygen Flow Rate 0 Objective Labs Result Diagrams: 08/28/21 04:54 08/28/21 04:54 Labs: Laboratory Results - last 24 hr 08/27/21 08/27/21 08/27/21 09:56 11:31 11:45 WBC RBC Hgb Hct MCV MCH MCHC RDW Plt Count Neut % (Auto) Lymph % (Auto) [place] % (Auto) Eos % (Auto) Baso % (Auto) Neut # (Auto) Lymph # (Auto) [place] # (Auto) Eos # (Auto) Baso # (Auto) Sodium Potassium Chloride Carbon Dioxide BUN Creatinine Estimated GFR BUN/Creatinine Ratio Glucose Lactate Calcium Total Bilirubin AST ALT Alkaline Phosphatase Total Creatine Kinase CK-MB (CK-2) CK-MB (CK-2) Rel Index Troponin I < 0.012 Total Protein Albumin Globulin Albumin/Globulin Ratio Procalcitonin 0.95 H Nasal Screen MRSA (PCR) Blood Type O Positive Antibody Screen Negative Crossmatch See Detail 08/27/21 08/27/21 08/27/21 16:12 16:12 17:10 WBC RBC Hgb 7.4 L Hct 21.8 L MCV MCH MCHC RDW Plt Count Neut % (Auto) Lymph % (Auto) [place] % (Auto) Eos % (Auto) Baso % (Auto) Neut # (Auto) Lymph # (Auto) [place] # (Auto) Eos # (Auto) Baso # (Auto) Sodium Potassium Chloride Carbon Dioxide BUN Creatinine Estimated GFR BUN/Creatinine Ratio Glucose Lactate 0.7 Calcium Total Bilirubin AST ALT Alkaline Phosphatase Total Creatine Kinase 28 L CK-MB (CK-2) TNP CK-MB (CK-2) Rel Index TNP Troponin I 0.088 H Total Protein Albumin Globulin Albumin/Globulin Ratio Procalcitonin Nasal Screen MRSA (PCR) Blood Type Antibody Screen Crossmatch 08/27/21 08/27/21 08/27/21 19:20 21:20 21:20 WBC 14.6 H RBC 2.49 L Hgb 8.2 L Hct 24.0 L MCV 96.6 D MCH 33.2 MCHC 34.3 RDW 16.2 H Plt Count 196 Neut % (Auto) 82.4 H Lymph % (Auto) 10.1 L [place] % (Auto) 6.9 Eos % (Auto) 0.2 L Baso % (Auto) 0.4 Neut # (Auto) 20092 H Lymph # (Auto) 1500 [place] # (Auto) 1000 H Eos # (Auto) 0 Baso # (Auto) 100 Sodium Potassium Chloride Carbon Dioxide BUN Creatinine Estimated GFR BUN/Creatinine Ratio Glucose Lactate Calcium Total Bilirubin AST ALT Alkaline Phosphatase Total Creatine Kinase 37 L CK-MB (CK-2) TNP CK-MB (CK-2) Rel Index TNP Troponin I 0.412 H* Total Protein Albumin Globulin Albumin/Globulin Ratio Procalcitonin Nasal Screen MRSA (PCR) Negative for mrsa Blood Type Antibody Screen Crossmatch 08/28/21 08/28/21 08/28/21 04:54 04:54 04:54 WBC 11.0 RBC 2.29 L Hgb 7.7 L Hct 22.4 L MCV 97.6 MCH 33.4 MCHC 34.2 RDW 16.5 H Plt Count 190 Neut % (Auto) 81.7 H Lymph % (Auto) 10.9 L [place] % (Auto) 6.4 Eos % (Auto) 0.7 L Baso % (Auto) 0.3 Neut # (Auto) 9000 H Lymph # (Auto) 1200 [place] # (Auto) 700 Eos # (Auto) 100 Baso # (Auto) 0 Sodium 133 L Potassium 3.9 Chloride 105 Carbon Dioxide 26 BUN 36 H Creatinine 1.37 H Estimated GFR 59 L BUN/Creatinine Ratio 26.3 H Glucose 101 D Lactate Calcium 7.7 L Total Bilirubin 0.3 AST 27 ALT 25 Alkaline Phosphatase 46 Total Creatine Kinase CK-MB (CK-2) CK-MB (CK-2) Rel Index Troponin I 0.431 H* Total Protein 4.8 L Albumin 2.5 L Globulin 2.3 Albumin/Globulin Ratio 1.1 Procalcitonin Nasal Screen MRSA (PCR) Blood Type Antibody Screen Crossmatch Assessment & Plan Assessment & Plan narrative: NEURO: -- EArly mobility as tolerated -- Fall precaution RESP: -- Encourage IS and OOB as tolerated -- Goal SpO2 > 88% GI: # Upper GI bleed -- Secondary ulcer vs AVM vs PUD -- Plan for EGD -- On PPI IV BID -- Trend H/H -- Transfuse for goal Hb > 7 -- If EGD showed gastric perforation then will need general surgery consultation : # DORIAN -- Secondary to GI bleed and dehydration -- Cont aggressive IVF resuscitation -- GI bleed managemetn as above -- Daily renal panel ID: # Concern for gastric perforation -- On zosyn -- FOllow up cx data HEME: # Acute blood loss anemia -- SEcondary to GI bleed -- Transfuse for goal Hb > 7 ENDO: -- Goal BS < 180 D/w RN and RT. Time Spent With Patient Critical Care time: I spent a total of [] minutes of critical care time on this patient's care today; this time is exclusive of procedural time.
[2021-08-28] MEDS: ONDANSETRON 4 MG/2 ML INJ IV (12:15)
--- NOTE | 2021-08-28 12:34 | CM.DANOTE ---
Initial Discharge Planning Assessment: Case received, EMR reviewed and met with patient and spouse Jessie in patient's room. Introduced self and role. 61 year old male (birthday today) admitted yesterday via ER to care of hospitalist team. PCP: Patient states he is working on finding a PCP in his hometown in [place]. Payer: Self Pay, lorin packet was given to family on admit. Patient was admitted with back and abdominal pain, hematemesis and low Hgb requiring blood transfusions yesterday. He had been seen in [facility] a few days prior for similar symptoms. He has undergone his EGD today and results are in chart. He is NPO, on IV PPI, pain medication and close watch of Hgb. Patient has significant medical history: CABG x 6, gastric ulcer, recent dx of RLL pneumonia, etc. He is alert and oriented and weakened. Spouse Jessie supportive and provides some of information. They are from [facility] and came to visit their son on [facility] where he is stationed. They were supposed to return to [place] today. At his baseline, the spouse and patient report that he is independent and drives at baseline. P: DCP will continue to follow. Dorota Spence RN/DCP Discharge Planning/Care Management CM Discharge Assessment Start: 08/28/21 12:27 Freq: Status: Active Protocol: Document 08/28/21 12:28 (Rec: 08/28/21 12:34 [id number]) Discharge Planning Assessment Assigned Work Adjustment Instructor Dorota Spence RN/DCP Advance Directives? No Advance Directives on File No History Provided By Family Member Prior Living Arrangements House Comment Patient and spouse traveling here from [place], temporarily stay Household Members spouse Type of transporation used prior to Drives own vehicle admit Independent with ADL's Yes Is patient alert and oriented? Yes Needs Assistance With Home Chores / Shopping Caregiver for Another No Barriers to Discharge No Comment At baseline patient is independent per . Discharge Plan Home Transportation Arrangement Transport via private vehicle, spouse/son Referrals Initiated None needed Whiteboard Updated in Patient Room with Yes name and ext. # of Work Adjustment Instructor Review Status In Process Next Review Type Continued Stay Review
[2021-08-28 13:53] LABS: Hematocrit 17.4 % (41-53)
[2021-08-28 14:23] LABS: Troponin I 0.221 ng/mL (0.01-0.034)
--- NOTE | 2021-08-28 14:32 | P.PN_ITS ---
Subjective Subjective Date Patient Seen: 08/28/21 Interval history: 61 year old male admitted with UGI bleeding. EGD today showed an ulcer with adherent clot but no active bleeding. h/h after procedure declined to 6.0 again. Continues to have melenotic stools x2 today thus far. Ordered for 2 more units this afternoon. General surgery following. Exam Vital Signs (past 8 hours): - 08/28/21 07:00 08/28/21 07:00 08/28/21 08:00 Temperature Pulse Rate 96 H Respiratory Rate 13 Blood Pressure 127/58 L 123/57 L Pulse Oximetry 94 Oxygen Delivery Method Oxygen Flow Rate 08/28/21 08:00 08/28/21 08:48 08/28/21 09:21 Temperature 98.1 F Pulse Rate 96 H 100 H Respiratory Rate 12 16 Blood Pressure 127/67 Pulse Oximetry 94 98 Oxygen Delivery Method Room Air Room Air Oxygen Flow Rate 08/28/21 08:15 08/28/21 08:30 08/28/21 08:45 Temperature Pulse Rate 112 H 112 H 97 H Respiratory Rate 19 20 12 Blood Pressure Pulse Oximetry 97 96 95 Oxygen Delivery Method Oxygen Flow Rate 08/28/21 09:00 08/28/21 09:00 08/28/21 10:39 Temperature 98.6 F Pulse Rate 98 H 100 H Respiratory Rate 11 L 14 Blood Pressure 119/55 L 119/55 L Pulse Oximetry 96 98 Oxygen Delivery Method Room Air Oxygen Flow Rate 08/28/21 10:43 08/28/21 10:45 08/28/21 10:49 Temperature Pulse Rate 108 H 111 H 108 H Respiratory Rate 18 12 12 Blood Pressure 122/59 L 137/51 L 123/62 Pulse Oximetry 97 96 96 Oxygen Delivery Method Room Air Room Air Room Air Oxygen Flow Rate 08/28/21 10:54 08/28/21 10:59 08/28/21 11:15 Temperature 97.9 F Pulse Rate 107 H 107 H 111 H Respiratory Rate 11 L 13 20 Blood Pressure 125/81 111/55 L 107/55 L Pulse Oximetry 98 96 96 Oxygen Delivery Method Room Air Room Air Oxygen Flow Rate 0 08/28/21 11:50 08/28/21 12:20 08/28/21 13:20 Temperature 99.2 F 99.7 F H 99.3 F Pulse Rate 135 H 112 H 100 H Respiratory Rate 20 22 17 Blood Pressure 131/70 138/68 128/61 Pulse Oximetry 98 97 97 Oxygen Delivery Method Oxygen Flow Rate 0 0 0 08/28/21 14:22 08/28/21 14:24 Temperature 99.2 F 99.2 F Pulse Rate 104 H 105 H Respiratory Rate 16 18 Blood Pressure 109/55 L 109/55 L Pulse Oximetry 97 Oxygen Delivery Method Oxygen Flow Rate 0 Oxygen Delivery Method Room Air Oxygen Flow Rate 0 Narrative Exam Narrative: Mildly Ill-appearing male lying in bed in no distress HENAL Other: Normocephalic atraumatic, extraocular muscles are intact, oropharynx clear, neck is supple Resp Other: Lungs: Clear to auscultation Cardio Other: Cardiac exam: Regular rate and rhythm normal S1-S2 GI Other: Abdomen: Soft, minimal tenderness epigastrium, minimal distension Neuro Other: Nonfocal Extrem Other: No edema Psych Other: Patient is awake alert and appropriate Objective Labs Result Diagrams: 08/28/21 13:30 08/28/21 04:54 Labs: Laboratory Results - last 24 hr 08/27/21 08/27/21 08/27/21 09:56 16:12 16:12 WBC RBC Hgb Hct MCV MCH MCHC RDW Plt Count Neut % (Auto) Lymph % (Auto) [place] % (Auto) Eos % (Auto) Baso % (Auto) Neut # (Auto) Lymph # (Auto) [place] # (Auto) Eos # (Auto) Baso # (Auto) Sodium Potassium Chloride Carbon Dioxide BUN Creatinine Estimated GFR BUN/Creatinine Ratio Glucose Lactate 0.7 Calcium Total Bilirubin AST ALT Alkaline Phosphatase Total Creatine Kinase 28 L CK-MB (CK-2) TNP CK-MB (CK-2) Rel Index TNP Troponin I 0.088 H Total Protein Albumin Globulin Albumin/Globulin Ratio Nasal Screen MRSA (PCR) Blood Type O Positive Antibody Screen Negative Crossmatch See Detail 08/27/21 08/27/21 08/27/21 17:10 19:20 21:20 WBC RBC Hgb 7.4 L Hct 21.8 L MCV MCH MCHC RDW Plt Count Neut % (Auto) Lymph % (Auto) [place] % (Auto) Eos % (Auto) Baso % (Auto) Neut # (Auto) Lymph # (Auto) [place] # (Auto) Eos # (Auto) Baso # (Auto) Sodium Potassium Chloride Carbon Dioxide BUN Creatinine Estimated GFR BUN/Creatinine Ratio Glucose Lactate Calcium Total Bilirubin AST ALT Alkaline Phosphatase Total Creatine Kinase 37 L CK-MB (CK-2) TNP CK-MB (CK-2) Rel Index TNP Troponin I 0.412 H* Total Protein Albumin Globulin Albumin/Globulin Ratio Nasal Screen MRSA (PCR) Negative for mrsa Blood Type Antibody Screen Crossmatch 08/27/21 08/28/21 08/28/21 21:20 04:54 04:54 WBC 14.6 H 11.0 RBC 2.49 L 2.29 L Hgb 8.2 L 7.7 L Hct 24.0 L 22.4 L MCV 96.6 D 97.6 MCH 33.2 33.4 MCHC 34.3 34.2 RDW 16.2 H 16.5 H Plt Count 196 190 Neut % (Auto) 82.4 H 81.7 H Lymph % (Auto) 10.1 L 10.9 L [place] % (Auto) 6.9 6.4 Eos % (Auto) 0.2 L 0.7 L Baso % (Auto) 0.4 0.3 Neut # (Auto) 19912 H 9000 H Lymph # (Auto) 1500 1200 [place] # (Auto) 1000 H 700 Eos # (Auto) 0 100 Baso # (Auto) 100 0 Sodium 133 L Potassium 3.9 Chloride 105 Carbon Dioxide 26 BUN 36 H Creatinine 1.37 H Estimated GFR 59 L BUN/Creatinine Ratio 26.3 H Glucose 101 D Lactate Calcium 7.7 L Total Bilirubin 0.3 AST 27 ALT 25 Alkaline Phosphatase 46 Total Creatine Kinase CK-MB (CK-2) CK-MB (CK-2) Rel Index Troponin I Total Protein 4.8 L Albumin 2.5 L Globulin 2.3 Albumin/Globulin Ratio 1.1 Nasal Screen MRSA (PCR) Blood Type Antibody Screen Crossmatch 08/28/21 08/28/21 08/28/21 04:54 13:30 13:45 WBC RBC Hgb 6.0 L* Hct 17.4 L* MCV MCH MCHC RDW Plt Count Neut % (Auto) Lymph % (Auto) [place] % (Auto) Eos % (Auto) Baso % (Auto) Neut # (Auto) Lymph # (Auto) [place] # (Auto) Eos # (Auto) Baso # (Auto) Sodium Potassium Chloride Carbon Dioxide BUN Creatinine Estimated GFR BUN/Creatinine Ratio Glucose Lactate Calcium Total Bilirubin AST ALT Alkaline Phosphatase Total Creatine Kinase CK-MB (CK-2) CK-MB (CK-2) Rel Index Troponin I 0.431 H* 0.221 H* Total Protein Albumin Globulin Albumin/Globulin Ratio Nasal Screen MRSA (PCR) Blood Type Antibody Screen Crossmatch [facility] Medical History (Updated 08/27/21 @ 15:08 by Tracy Day MD) CAD (coronary artery disease) Gastric ulcer Gluten enteropathy Hyperlipidemia Hypertension Surgical History (Updated 08/27/21 @ 15:08 by Tracy Day MD) History of nephrectomy Hx of CABG Family History (Updated 08/27/21 @ 15:12 by Tracy Day MD) Mother Stroke Father Stroke Social History household members: spouse Smoking Status: Current every day smoker Assessment & Plan Assessment & Plan narrative: 60-year-old male with a history of coronary artery disease, history of CABG, hypertension, hyperlipidemia, gluten enteropathy, history of gastric ulcer requiring surgical repair, presented with acute abdominal pain, possible gastric perforation, upper GI bleed with acute blood loss anemia -patient had a drop in his hemoglobin/hematocrit from 02/15 to now 6.0 despite ongoing transfusion -Endoscopy today with gastric ulcuer with adherent clot. -patient will have received 4U PRBC as of this afternoon, 2 U yesterday, 2U today. -patient received IV Protonix 80 mg in the emergency room, continue IV BID -he initially received IV hydration as well which is being held during his transfusion Acute upper GI bleed, with associated acute blood loss anemia Dr. Herrera from General surgery has been consulted, endoscopy as noted above. Okay for clears. If the patient becomes hemodynamically unstable urgent surgical repair will be on entertained even after endoscopy findings today. Will obtain serial H&H, transfuse with a goal of a hemoglobin of greater than 7 Coronary bypass graft with myocardial injury -patient complained of chest pain earlier, likely related to underlying anemia and upper GI bleed -initial troponin negative. repeat was elevated to peak of 0.4 and then downtrended. He had no chest pain or ischemic changes on EKG. -will hold carvedilol, isosorbide dinitrate, given his acute upper GI bleed and possible concern for hypotension Hyponatremia -likely multifactorial -suspect secondary to spironolactone -will hold blood pressure medications, spironolactone, losartan, Coreg, and amlodipine given his acute upper GI bleed -will continue to follow. Chronic kidney disease stage 3 -patient had a creatinine of 1.59 3 days ago at [facility] -suspect this is his baseline -will avoid nephrotoxic agent Hyperlipidemia -patient can resume statin in the near future. Gluten enteropathy -continue dapsone as able. Recent right lower lobe pneumonia * Patient was treated with Augmentin and azithromycin as an outpatient * Given the possibility of gastric perforation on CT scan, started Zosyn 3.375 q.6, in addition to Flagyl, for improved /anaerobic coverage initially. But antibiotics will be discontinued at this time given no fever and no perf oration on endoscopy. Hypertension * Patient usually takes amlodipine, losartan, and spironolactone * Given his acute upper GI bleed, and marginal blood pressure, will hold all blo od pressure medications at this time, yet will resume when blood pressure stabilizes Bilateral lower extremity stents,/peripheral vascular disease No evidence femoral artery occlusion, no intervention needed at this time -patient reports he is a full code, his is his surrogate decision maker. Dispo: probable discharge home, once bleeding stabilized, possible in 2-3 days at the earliest. Time Spent With Patient Critical Care time: I spent a total of [] minutes of critical care time on this patient's care today; this time is exclusive of procedural time. Quality VTE Deep Vein Thrombosis/Pulmonary Embolism Present on Admission: No
[2021-08-28] MEDS: DAPSONE 100 MG TABLET PO (21:01)
[2021-08-28] MEDS: SODIUM CHLORIDE 0.9% FLUSH 10 ML IV (21:01)
--- NOTE | 2021-08-28 21:05 | PM.ICURNDS ---
- :: This patient was seen via real time interactive two-way audiovisual telecommunication. Note: Pt HD stable/ hypertensive, started on amlodipine ( home med), may resume the BP meds slowly. Last HB was 6, received 2 units of blood , pending repeat HB, had normal BM.
[2021-08-28 21:34] LABS: Hemoglobin 8.2 g/dL (13.5-17.5)
[2021-08-28 21:37] LABS: Hematocrit 23.7 % (41-53)
[2021-08-29] VITALS (23 sets, daily range): BP systolic 110–162; BP diastolic 62–76; PULSE 77–110; RESP 14–20; TEMP 36.4–37.6; O2SAT 91–96
--- NOTE | 2021-08-29 06:48 | PC.NURSE ---
Shift Note-Patient dozed intermittently, declined need for analgesia. Had four small black BMs. SR 80s-90s, does get tachycardic 115 while OOB to BR, tolerated 2 units PRBCs, H/H at 2130 8.2/23.7.
[2021-08-29 07:19] LABS: Add Manual Diff / Slide Review NO; Basophils Absolute Auto 100 /uL (0-100); Basophils Percent Auto 0.8 % (0-2); Eosinophils Absolute Auto 300 /uL (0-450); Hematocrit 24.9 % (41-53); Hemoglobin 8.7 g/dL (13.5-17.5); Lymphocytes Absolute Auto 1600 /uL (1100-4500); Lymphocytes Percent Auto 17.1 % (25-40); Mean Corpuscular HGB Conc 34.9 % (30-36); Mean Corpuscular Hemoglobin 32.8 PG (26-34); Mean Corpuscular Volume 94.1 fL (80-100); Monocytes Absolute Auto 600 /uL (0-900); Monocytes Percent Auto 6.3 % (3-14); Neutrophils Absolute Auto 6600 /uL (1500-7000); Neutrophils Percent Auto 72.8 % (50-75); Platelet Count 192 X10^3/uL (150-400); Red Blood Cell Count 2.65 X10^6/uL (4.5-5.9); Red Cell Distribution Width 16.3 % (11.6-14.8); White Blood Cell Count 9.1 X10^3/uL (4.5-11.0)
[2021-08-29 07:28] LABS: BUN Creatinine Ratio 21.3 (6-22); Blood Urea Nitrogen 26 mg/dL (9-20); Calcium 7.9 mg/dL (8.4-10.2); Carbon Dioxide 26 mmol/L (22-32); Chloride 101 mmol/L (98-107); Estimated Glomerular Filt Rate > 60 mL/min (>60); Glucose 97 mg/dL (80-110); HEMOLYSIS < 15 (0-50); Potassium 3.7 mmol/L (3.4-5.1); Sodium 131 mmol/L (137-145)
[2021-08-29] MEDS: AMLODIPINE 5 MG TABLET 10 MG PO (08:49)
[2021-08-29] MEDS: DAPSONE 100 MG TABLET PO (08:49)
[2021-08-29] MEDS: SODIUM CHLORIDE 0.9% FLUSH 10 ML IV (08:49)
[2021-08-29] MEDS: PANTOPRAZOLE DR 40 MG TABLET PO (08:49)
[2021-08-29] MEDS: ACETAMINOPHEN 325 MG TABLET 975 MG PO (09:17)
[2021-08-29] MEDS: CYCLOBENZAPRINE 10 MG TABLET PO (09:17)
--- NOTE | 2021-08-29 10:14 | PM.DS.1 ---
History of Present Illness History of Present Illness Date Patient Seen: 08/29/21 Chief complaint: weakness, vomitting, passed out Narrative: Per Dr. Day, The patient is a 60-year-old male With a history of hypertension, hyperlipidemia, coronary disease status coronary artery bypass graft, recent diagnosis of right lower lobe pneumonia, history of allergies to gluten, and a history of gastric ulcer. The patient was seen at [facility] 2 days ago. He was diagnosed at that time with right lower lobe pneumonia celiac and PATRICIA stenosis, and leukocytosis. He was started on Augmentin and azithromycin in discharge. The patient has a history of stents in the lower extremities, in addition to a history of a perforated gastric ulcer requiring surgery, as well as a solitary kidney. The patient has not been anticoagulated. He does report taking Goody powders recently. He presented to the emergency room today with complaints of back pain radiating to the front for weak. He also complained of tightness in his chest. He denied any shortness of breath. The patient also reports emesis, he had some hematemesis. He states that he passed out after throwing up. When it [facility] his hemoglobin was 11, repeat hemoglobin here at [facility] Emergency Department was 6 g. Patient is admitted to the hospital for an upper GI bleed, acute blood loss anemia, and probable recurrent gastric ulcer Discharge Providers Provider Date of admission: 08/27/21 12:17 Discharge Date: 08/29/21 Discharge provider: Norman Bill DO Summary Hospital Course Discharge Diagnosis: Please see hospital course by problem list noted below Hospital Course: 60-year-old male with a history of coronary artery disease, history of CABG, hypertension, hyperlipidemia, gluten enteropathy, history of gastric ulcer requiring surgical repair, presented with acute abdominal pain, possible gastric perforation, upper GI bleed with acute blood loss anemia -patient had a drop in his hemoglobin/hematocrit from 11/30 to 6.0 despite ongoing transfusion. -Endoscopy 08/29 with gastric ulcuer with adherent clot. -patient received 4U PRBC over the course of his admission -patient received IV Protonix 80 mg in the emergency room, continued IV BID. -ultimately endoscopy showed adherent clot but with no active bleeding. Patient's diet was advanced, his bowel movements became less melenotic, and his h/h continued to improve without need for further transfusion. He was discharged home with max dose PPI and recommended follow up as an outpatient. Acute upper GI bleed, with associated acute blood loss anemia Dr. Herrera from General surgery was consulted, endoscopy as noted above. See above management. Coronary bypass graft with myocardial injury -patient complained of chest pain earlier, likely related to underlying anemia and upper GI bleed -initial troponin negative. repeat was elevated to peak of 0.4 and then downtrended. He had no chest pain or ischemic changes on EKG. -held carvedilol, isosorbide dinitrate, given his acute upper GI bleed and possible concern for hypotension. This was restarted at the time of discharge. Hyponatremia -likely multifactorial -suspect secondary to spironolactone and anemia -improved over the course of admission. DORIAN on CKD 3 -patient with elevated creatinine, 1.59 previously which improved to 1.22 on the day of discharge. This was likely due to his acute blood loss anemia. Hyperlipidemia -patient can resume statin at the time of discharge Gluten enteropathy -continue dapsone at the time of discharge Recent right lower lobe pneumonia Patient was treated with Augmentin and azithromycin as an outpatient Hypertension Patient usually takes amlodipine, losartan, and spironolactone This can be resumed at the time of discharge. Bilateral lower extremity stents,/peripheral vascular disease No evidence femoral artery occlusion, no intervention needed at this time Time Spent with Patient Time spent: Greater than 30 minutes Exam Vital Signs (past 8 hours): - 08/29/21 02:15 08/29/21 02:15 08/29/21 02:16 Temperature 99.6 F Pulse Rate 92 H 93 H Respiratory Rate 18 Blood Pressure Pulse Oximetry 93 94 Oxygen Delivery Method Oxygen Flow Rate 08/29/21 02:16 08/29/21 04:20 08/29/21 02:30 Temperature Pulse Rate 80 83 Respiratory Rate 16 Blood Pressure 162/75 H Pulse Oximetry 93 94 Oxygen Delivery Method Oxygen Flow Rate 0 08/29/21 02:45 08/29/21 03:00 08/29/21 03:15 Temperature Pulse Rate 87 89 96 H Respiratory Rate Blood Pressure Pulse Oximetry 94 94 91 Oxygen Delivery Method Oxygen Flow Rate 08/29/21 03:30 08/29/21 03:45 08/29/21 04:00 Temperature Pulse Rate 93 H 110 H 100 H Respiratory Rate Blood Pressure Pulse Oximetry 94 94 92 Oxygen Delivery Method Oxygen Flow Rate 08/29/21 04:15 08/29/21 05:15 08/29/21 05:35 Temperature 99.0 F Pulse Rate 85 82 Respiratory Rate 14 Blood Pressure 110/63 Pulse Oximetry 91 93 Oxygen Delivery Method Room Air Oxygen Flow Rate 0 08/29/21 08:10 Temperature 97.5 F L Pulse Rate 92 H Respiratory Rate 20 Blood Pressure 152/76 H Pulse Oximetry 96 Oxygen Delivery Method Oxygen Flow Rate 0 Oxygen Delivery Method Room Air Oxygen Flow Rate 0 Narrative Exam Narrative: Well appearing male in no acute distress. HENMT Other: Normocephalic atraumatic, extraocular muscles are intact, oropharynx clear, neck is supple Resp Other: Lungs: Clear to auscultation Cardio Other: Cardiac exam: Regular rate and rhythm normal S1-S2 GI Other: Abdomen: Soft, minimal tenderness epigastrium, minimal distension Neuro Other: Nonfocal Extrem Other: No edema Psych Other: Patient is awake alert and appropriate Objective Labs Result Diagrams: 08/29/21 06:40 08/29/21 06:40 Labs: Laboratory Results - last 24 hr 08/27/21 08/28/21 08/28/21 09:56 13:30 13:45 WBC RBC Hgb 6.0 L* Hct 17.4 L* MCV MCH MCHC RDW Plt Count Neut % (Auto) Lymph % (Auto) [place] % (Auto) Eos % (Auto) Baso % (Auto) Neut # (Auto) Lymph # (Auto) [place] # (Auto) Eos # (Auto) Baso # (Auto) Sodium Potassium Chloride Carbon Dioxide BUN Creatinine Estimated GFR BUN/Creatinine Ratio Glucose Calcium Troponin I 0.221 H* Blood Type O Positive Antibody Screen Negative Crossmatch See Detail 08/28/21 08/29/21 08/29/21 21:20 06:40 06:40 WBC 9.1 RBC 2.65 L Hgb 8.2 L 8.7 L Hct 23.7 L 24.9 L MCV 94.1 D MCH 32.8 MCHC 34.9 RDW 16.3 H Plt Count 192 Neut % (Auto) 72.8 Lymph % (Auto) 17.1 L [place] % (Auto) 6.3 Eos % (Auto) 3.0 Baso % (Auto) 0.8 Neut # (Auto) 6600 Lymph # (Auto) 1600 [place] # (Auto) 600 Eos # (Auto) 300 Baso # (Auto) 100 Sodium 131 L Potassium 3.7 Chloride 101 Carbon Dioxide 26 BUN 26 H Creatinine 1.22 Estimated GFR > 60 BUN/Creatinine Ratio 21.3 Glucose 97 Calcium 7.9 L Troponin I Blood Type Antibody Screen Crossmatch [facility] Medical History (Updated 08/27/21 @ 15:08 by Tracy Day MD) CAD (coronary artery disease) Gastric ulcer Gluten enteropathy Hyperlipidemia Hypertension Surgical History (Updated 08/27/21 @ 15:08 by Tracy Day MD) History of nephrectomy Hx of CABG Family History (Updated 08/27/21 @ 15:12 by Tracy Day MD) Mother Stroke Father Stroke Social History household members: spouse Smoking Status: Current every day smoker Discharge Plan Discharge Plan Patient Disposition: Home Provider Discharge Comment: You were admitted to the hospital with GI bleeding. Found to have an ulcer. If you notice blood again or dark stools, do not hesitate to return to the ER as they should continue to improve now. Continue high dose omeprazole. Follow up with PCP or GI physician as an outpatient. Discharge orders & Medications Prescriptions: New pantoprazole 40 mg tablet,delayed release (DR/EC) 40 mg PO BID 30 Days Qty: 60 0RF lorazepam 0.5 mg tablet 0.5 mg PO BID PRN (Reason: anxiety) 2 Days Qty: 2 0RF Continued amlodipine 5 mg tablet 1 tab PO BID Label Comments: TAKE ONE-HALF TABLET BY MOUTH AT BEDTIME losartan 50 mg tablet 1 tab PO DAILY Label Comments: TAKE ONE TABLET BY MOUTH ONE TIME DAILY carvedilol 6.25 mg tablet 1 tab PO BID Label Comments: TAKE ONE TABLET BY MOUTH TWICE A DAY atorvastatin 20 mg tablet 1 tab PO DAILY Label Comments: TAKE ONE TABLET BY MOUTH ONE TIME DAILY IN THE EVENING Rx Instructions: takes in the evening spironolactone 25 mg tablet 1 tab PO DAILY Label Comments: TAKE ONE TABLET BY MOUTH ONE TIME DAILY dapsone 100 mg tablet 1 tab PO DAILY Label Comments: TAKE ONE TABLET BY MOUTH ONE TIME DAILY isosorbide dinitrate 5 mg tablet 1 tab PO BID Label Comments: TAKE ONE TABLET BY MOUTH TWICE A DAY Discontinued pantoprazole 40 mg tablet,delayed release (DR/EC) 1 tab PO DAILY Label Comments: TAKE ONE TABLET BY MOUTH ONE TIME DAILY Diet/Activity/Treatments Diet: Diet as Tolerated Activity: As tolerated Visit Report/Discharge Packet Instructions: DI for Gastric Ulcer Quality VTE Deep Vein Thrombosis/Pulmonary Embolism Present on Admission: No
--- NOTE | 2021-08-29 11:19 | CM.DPC ---
Discharge Planning Note: Met with patient in room, sitting up in chair. He is being discharged and is very glad. He and spouse will wait for their son to come up from [facility] and pick them up. They are staying with son and soon they are planning to return home to [place] in their private vehicle. Dorota Spence RN/DCP
[2021-08-29] MEDS: OXYCODONE IR 5 MG TABLET PO (11:58)
== END 2021-08-29 13:30 | disposition home or self-care (01) | DRG 378 ==
LOC: ED 12:16 → AC 12:17 → ICU 14:56
PROVIDERS: Family Medicine; Internal Medicine; Surgery; Admitting Provider Internal Medicine; Emergency Provider Emergency Medicine; Referring Provider Emergency Medicine; Visit Provider Internal Medicine
PROC: 0DJ08ZZ Inspection of Upper Intestinal Tract, Via Natural or Artificial Opening Endoscopic (ICD-10-PCS; CPT 43235; principal; 2021-08-28 09:30)
DX: K26.4 Chronic or unspecified duodenal ulcer with hemorrhage (principal); D62 Acute posthemorrhagic anemia; E87.1 Hypo-osmolality and hyponatremia; I5A Non-ischemic myocardial injury (non-traumatic); N17.9 Acute kidney failure, unspecified; I25.10 Atherosclerotic heart disease of native coronary artery without angina pectoris; E78.5 Hyperlipidemia, unspecified; K90.0 Celiac disease; I12.9 Hypertensive chronic kidney disease with stage 1 through stage 4 chronic kidney disease, or unspecified chronic kidney disease; N18.30 Chronic kidney disease, stage 3 unspecified; F17.210 Nicotine dependence, cigarettes, uncomplicated; Z20.822 Contact with and (suspected) exposure to COVID-19; Z95.1 Presence of aortocoronary bypass graft; Z90.5 Acquired absence of kidney
CPT/HCPCS: 36415; 36430; 36592; 71045; 71275; 74174; 80048; 80053; 82550; 82962; 83605; 83690; 83735; 84145; 84484; 85014; 85018; 85025; 85610; 85730; 86850; 86900; 86901; 87040; 87635; 87797; 93005; 93010; 96365; 96366; 96368; 96375; 99285; 99291; C9803; P9016; C9113; J0330; J1100; J1170; J1956; J2270; J2405; J2543; J2704; J3010; Q9967

== ENCOUNTER 2021-08-31 06:57 | Inpatient (IN) | payer SELFPAY ==
[2021-08-27 13:07] VITALS: BMI 21.4
[2021-08-31] VITALS (42 sets, daily range): BP systolic 72–144; BP diastolic 42–73; PULSE 33–110; RESP 8–29; TEMP 36.2–37.8; O2SAT 91–100; BMI 23.6
--- NOTE | 2021-08-31 | PATH_ITS ---
[facility] Accession Number: [id number] No. of containers..02 Tissue . 01 Material submitted: . PART A: stomach - STOMACH (STITCH AT DISTAL PORTION) PART B: body - NERVE . 01 Diagnosis: A. Stomach, Antrectomy: Segment of gastric antrum and duodenum with a perforated ulcer (3.7 cm post-fixation measurement). Attached omentum with inflammation and repair reaction. One benign omental lymph node (0/1). Margins are viable and negative for atypia or malignancy. Negative for invasive carcinoma by immunohistochemistry studies. Negative for H. pylori. . B. Nerve, Truncal Vagotomy: Peripheral nerve segment present. [facility] 09/06/2021 1557 Local . 01 Electronically signed: . Marilee Santana MD, Pathologist NPI- [id number] . 01 Gross description: . A. Received in formalin, labeled with the patient's name and stomach, and consists of triangular-shaped portion of stomach measuring 8.7 x 4.5 x 2.5 cm, with a staple at one end designating distal per the requisition. The proximal stapled margin measures 8.5 cm in length and is inked green. At the distal stapled margin, the specimen has a full- thickness defect adjacent to the stapled line that measures 3.7 x 2.9 cm, and this margin is inked blue. The distal stapled line measures 3.5 cm in length and is inked black. The portion of attached greater omentum is yellow and lobulated and extends out to 2.6 cm. Within the greater omentum is a firm nodular area measuring 1.6 x 0.7 x 0.7 cm. The fragment of lesser omentum extends out to 2.6 cm. Opening the specimen along the greater curvature reveals a moderate amount of clear mucoid material. The mucosa has an area of hemorrhage near the distal margin that measures 3.4 x 1.9 cm. The remaining mucosa is kern and velvety with normal folding. No lesions are identified. The serosa is kern, smooth, glistening and intact. [employer] sections are submitted as follows: A1: [employer] proximal margin en face. A2: [employer] margin of defect en face. A3: [employer] distal margin en face. A4-A5: Area of hemorrhagic mucosa. A6: Normal mucosa. A7: Firm nodule within greater omentum. A8: [employer] adipose (no lymph nodes identified). B. Received in formalin, labeled with the patient's name and nerve, and consists of a cylindrical fragment of pale yellow soft tissue measuring 1.0 cm in length and 0.4 cm in diameter. The specimen is submitted intact in cassette B1 to be cut at Histology. ([id number]) /[facility] 09/03/2021 1347 Local . 01 Microscopic: . An immunohistochemistry panel is performed to further evaluate the cells of interest. The control stains show appropriate reactivity. . RESULTS: Block A4 TESSA: Negative for invasive carcinoma. H. pylori: Negative. . Block A5 TESSA: Negative for invasive carcinoma. . Block A7 TESSA: Negative for invasive carcinoma or metastatic carcinoma. . * This test was developed and its performance characteristics determined by [employer] It has not been cleared or approved by the U.S. Food and Drug Administration. The FDA has determined that such clearance or approval is not necessary. This test is used for clinical purposes. It should not be regarded as investigational or for research. . 01 Pathologist provided ICD-10: K25.1 . 01 CPT . 503293, 964385, V70153 Specimen Comment: A courtesy copy of this report has been sent to [phone] Performed at: 01 [facility] [address] [place] [address], [place], [place] [id number] MD Pako Bowers MD Phone: [phone]
--- NOTE | 2021-08-31 07:09 | ED_ITS ---
HPI - GI Bleed General Chief complaint: GI Bleed Stated complaint: passed out, Time Seen by Provider: 08/31/21 07:02 History of Present Illness HPI Narrative: 61-year-old male With a history of hypertension, hyperlipidemia, coronary disease status coronary artery bypass graft, returns for syncope and large episode of bright red emesis. Patient had just been admitted for upper GI bleed , had endoscopy noting recent bleeding gastric ulcer with adherent clot. No specific intervention otherwise, patient had received 4 units of packed cells during his visit and was discharged yesterday with improved he is pale and diaphoretic Related Data Home Medications Medication Instructions Recorded Confirmed amlodipine 5 mg tablet 1 tab PO BID 08/27/21 08/27/21 atorvastatin 20 mg tablet 1 tab PO DAILY 08/27/21 08/27/21 carvedilol 6.25 mg tablet 1 tab PO BID 08/27/21 08/27/21 dapsone 100 mg tablet 1 tab PO DAILY 08/27/21 08/27/21 isosorbide dinitrate 5 mg tablet 1 tab PO BID 08/27/21 08/27/21 losartan 50 mg tablet 1 tab PO DAILY 08/27/21 08/27/21 spironolactone 25 mg tablet 1 tab PO DAILY 08/27/21 08/27/21 Previous Rx's Medication Instructions Recorded pantoprazole 40 mg tablet,delayed 40 mg PO BID 30 days #60 tabs 08/29/21 release Allergies Allergy/AdvReac Type Severity Reaction Status Date / Time No Known Drug Allergies Allergy Verified 08/27/21 09:34 Review of Systems Review of Systems Narrative: GENERAL: See HPI HEENT: Denies sinus pain, ear pain, sore throat, difficulty swallowing, dizziness. RESPIRATORY: Denies dyspnea, cough, wheezing, hemoptysis, sputum. CARDIOVASCULAR: See HPI GASTROINTESTINAL: See HPI : Denies dysuria, frequency, incontinence, hematuria, urinary retention. MUSCULOSKELETAL: denies weakness, joint pain, or bony pain SKIN: Denies rash, skin lesions, or other NEUROLOGIC: Denies weakness, headache, numbness, change in speech, confusion, seizures, incoordination. PSYCHIATRIC: No concerning psychosocial issues. 12 point review of systems is negative except for those stated above Patient History Medical History CAD (coronary artery disease) Gastric ulcer Gluten enteropathy Hyperlipidemia Hypertension Surgical History History of nephrectomy Hx of CABG Family History Mother Stroke Father Stroke Social History household members: spouse Smoking Status: Current every day smoker Smoking Status: Current every day smoker tobacco type: cigarettes alcohol intake frequency: holidays/special occasions only Substance Use Type: does not use Exam Narrative Exam Narrative: GENERAL: [61] year old patient appears stated age. Ill appearing, in obvious distress, pale and diaphoretic moaning HEAD: Atraumatic. Normocephalic. EYES: Pupils equal round and reactive. Extraocular motions intact. No scleral icterus. No injection or drainage. ENT: Nose without bleeding, purulent drainage. Throat without erythema, tonsillar hypertrophy or exudate. Airway patent. NECK: Trachea midline. Non tender CARDIOVASCULAR: Regular rate and rhythm without murmurs, gallops, or rubs. RESPIRATORY: Clear to auscultation. Breath sounds equal bilaterally. No wheezes, rales, or rhonchi. GASTROINTESTINAL: Abdomen soft, non-tender, nondistended. EXTREMITIES: No edema or joint tenderness. BACK: Nontender without deformity or crepitance. No flank tenderness. NEURO: AOx3. SKIN: No rash or erythema of visible areas Initial Vital Signs Initial Vital Signs: Vital Signs Temperature 97.4 F L 08/31/21 07:00 Pulse Rate 56 L 08/31/21 07:00 Respiratory Rate 18 08/31/21 07:00 Blood Pressure 91/58 L 08/31/21 07:00 Pulse Oximetry 98 08/31/21 07:00 Oxygen Delivery Method 08/31/21 07:00 Course Orders Ordered: ED Orders 08/31/21 07:09 COVID19 -Nasal RAPID/Pre-Proc Stat Complete Blood Count AUTO DIFF Stat Comprehensive Metabolic Panel Stat Magnesium Stat Packed Cells Stat Troponin & CK Cardiac Panel Stat Type and Screen Stat Lactated Ringer's (Lactated Ringers) 1,000 mls @ 100 mls/hr IV NOW ONE Stop: 08/31/21 19:58 Last Admin: 08/31/21 10:01 Dose: 100 mls/hr Documented By: Infusion: 08/31/21 10:01 Dose: 100 mls/hr Documented By: Admin: 08/31/21 08:40 Dose: 100 mls/hr Documented By: SHANON Sodium Chloride (Normal Saline 0.9%) 1,000 mls @ 100 mls/hr IV NOW ONE Stop: 08/31/21 21:09 Last Infusion: 08/31/21 11:12 Dose: 100 mls/hr Documented By: Admin: 08/31/21 08:45 Dose: 100 mls/hr Documented By: SHANON Discontinued Medications Etomidate (Etomidate 2 Mg/Ml 10 Ml Vial) 17 mg IV NOW ONE Stop: 08/31/21 11:20 Last Admin: 08/31/21 09:10 Dose: 14 mg Documented By: SHANON Piperacillin Sod/Tazobactam (Sod 3.375 gm/ Sodium Chloride) 100 mls @ 200 mls/hr IV NOW ONE Stop: 08/31/21 08:49 Last Infusion: 08/31/21 09:50 Dose: 200 mls/hr Documented By: Admin: 08/31/21 09:20 Dose: 200 mls/hr Documented By: SHANON Metoclopramide HCl (Metoclopramide 10 Mg/2 Ml Inj) 10 mg IV NOW ONE Stop: 08/31/21 07:17 Last Admin: 08/31/21 07:23 Dose: 10 mg Documented By: ASH Ondansetron HCl (Ondansetron 4 Mg/2 Ml Inj) 4 mg IV NOW ONE Stop: 08/31/21 07:17 Last Admin: 08/31/21 07:23 Dose: 4 mg Documented By: ASH Pantoprazole Sodium (Pantoprazole 40 Mg Vial) 80 mg IV NOW ONE Stop: 08/31/21 07:04 Last Admin: 08/31/21 07:13 Dose: 80 mg Documented By: ASH Consultations Consultation #1: 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 Awaiting surgery inpu Time: 07:42 Vital Signs Vital signs: Vital Signs - 8 hr 08/31/21 07:00 08/31/21 07:03 08/31/21 07:05 Temperature 97.4 F L Pulse Rate 56 L 68 Respiratory Rate 18 Blood Pressure 91/58 L Pulse Oximetry 98 98 98 Oxygen Delivery Method Room Air Nasal Cannula Nasal Cannula Oxygen Flow Rate 2 2 08/31/21 07:05 08/31/21 07:08 08/31/21 07:08 Temperature Pulse Rate 49 L Respiratory Rate Blood Pressure 91/58 L 101/57 L Pulse Oximetry 98 Oxygen Delivery Method Nasal Cannula Oxygen Flow Rate 2 08/31/21 07:12 08/31/21 07:20 08/31/21 07:28 Temperature Pulse Rate 33 L 107 H Respiratory Rate Blood Pressure 83/46 L Pulse Oximetry 95 98 Oxygen Delivery Method Nasal Cannula Nasal Cannula Oxygen Flow Rate 2 2 08/31/21 07:28 08/31/21 07:30 08/31/21 07:31 Temperature Pulse Rate 100 H 99 H Respiratory Rate 14 14 Blood Pressure 90/66 Pulse Oximetry 96 95 Oxygen Delivery Method Nasal Cannula Nasal Cannula Oxygen Flow Rate 2 2 08/31/21 07:31 08/31/21 07:40 08/31/21 07:40 Temperature Pulse Rate 97 H 104 H Respiratory Rate 15 18 Blood Pressure 105/57 L Pulse Oximetry 95 96 Oxygen Delivery Method Nasal Cannula Nasal Cannula Oxygen Flow Rate 2 2 08/31/21 07:45 08/31/21 07:45 08/31/21 07:50 Temperature Pulse Rate 97 H Respiratory Rate 16 Blood Pressure 108/57 L 101/53 L Pulse Oximetry 96 Oxygen Delivery Method Nasal Cannula Oxygen Flow Rate 2 08/31/21 07:50 08/31/21 08:00 08/31/21 08:10 Temperature Pulse Rate 94 H 95 H 93 H Respiratory Rate 12 14 18 Blood Pressure Pulse Oximetry 97 97 96 Oxygen Delivery Method Nasal Cannula Oxygen Flow Rate 2 08/31/21 08:19 08/31/21 08:19 08/31/21 08:20 Temperature Pulse Rate 96 H 93 H Respiratory Rate 12 13 Blood Pressure 103/53 L Pulse Oximetry 93 99 Oxygen Delivery Method Oxygen Flow Rate 08/31/21 08:21 08/31/21 08:21 08/31/21 08:25 Temperature Pulse Rate 94 H 96 H Respiratory Rate 14 16 Blood Pressure 120/50 L Pulse Oximetry 98 97 Oxygen Delivery Method Oxygen Flow Rate 08/31/21 08:25 Temperature Pulse Rate Respiratory Rate Blood Pressure 98/51 L Pulse Oximetry Oxygen Delivery Method Oxygen Flow Rate MDM - GI Bleed Lab Data Result diagrams: 08/31/21 Unknown 06/15/22 07:09 Labs: Lab Results 08/31/21 08/31/21 08/31/21 Range/Units 07:09 07:09 07:09 WBC 12.0 H (4.5-11.0) X10^3/uL RBC 1.96 L (4.5-5.9) X10^6/uL Hgb 6.3 L* (13.5-17.5) g/dL Hct 19.0 L* (41-53) % MCV 96.8 (80-100) fL MCH 32.3 (26-34) PG MCHC 33.4 (30-36) % RDW 17.5 H (11.6-14.8) % Plt Count 266 (150-400) X10^3/uL Neut % (Auto) 77.8 H (50-75) % Lymph % (Auto) 15.9 L (25-40) % [place] % (Auto) 4.8 (3-14) % Eos % (Auto) 1.0 L (2-4) % Baso % (Auto) 0.5 (0-2) % Neut # (Auto) 9400 H (5478-7301) /uL Lymph # (Auto) 1900 (2795-5655) /uL [place] # (Auto) 600 (0-900) /uL Eos # (Auto) 100 (0-450) /uL Baso # (Auto) 100 (0-100) /uL Sodium 131 L (137-145) mmol/L Potassium 3.7 (3.4-5.1) mmol/L Chloride 102 (98-107) mmol/L Carbon Dioxide 20 L (22-32) mmol/L BUN 21 H (9-20) mg/dL Creatinine 1.63 H (0.66-1.25) mg/dL Estimated GFR 48 L (>60) mL/min BUN/Creatinine Ratio 12.9 (6-22) Glucose 254 H D (80-110) mg/dL Calcium 7.9 L (8.4-10.2) mg/dL Magnesium 2.3 (1.6-2.3) mg/dL Total Bilirubin 0.4 (0.2-1.3) mg/dL AST 36 (17-59) IU/L ALT 48 (<50) IU/L Alkaline Phosphatase 67 (38-126) U/L Total Creatine Kinase 27 L (55-170) U/L CK-MB (CK-2) TNP CK-MB (CK-2) Rel Index TNP Troponin I 0.082 H (0.01-0.034) ng/mL Total Protein 4.7 L (6.3-8.2) g/dL Albumin 2.5 L (3.5-5.0) g/dL Globulin 2.2 (1.7-4.1) g/dL Albumin/Globulin Ratio 1.1 (1.0-2.8) SARS-CoV-2 (PCR) (Negative) Blood Type O Positive Antibody Screen Negative Crossmatch See Detail 08/31/21 Range/Units 07:09 WBC (4.5-11.0) X10^3/uL RBC (4.5-5.9) X10^6/uL Hgb (13.5-17.5) g/dL Hct (41-53) % MCV (80-100) fL MCH (26-34) PG MCHC (30-36) % RDW (11.6-14.8) % Plt Count (150-400) X10^3/uL Neut % (Auto) (50-75) % Lymph % (Auto) (25-40) % [place] % (Auto) (3-14) % Eos % (Auto) (2-4) % Baso % (Auto) (0-2) % Neut # (Auto) (8273-8821) /uL Lymph # (Auto) (4299-5142) /uL [place] # (Auto) (0-900) /uL Eos # (Auto) (0-450) /uL Baso # (Auto) (0-100) /uL Sodium (137-145) mmol/L Potassium (3.4-5.1) mmol/L Chloride (98-107) mmol/L Carbon Dioxide (22-32) mmol/L BUN (9-20) mg/dL Creatinine (0.66-1.25) mg/dL Estimated GFR (>60) mL/min BUN/Creatinine Ratio (6-22) Glucose (80-110) mg/dL Calcium (8.4-10.2) mg/dL Magnesium (1.6-2.3) mg/dL Total Bilirubin (0.2-1.3) mg/dL AST (17-59) IU/L ALT (<50) IU/L Alkaline Phosphatase (38-126) U/L Total Creatine Kinase (55-170) U/L CK-MB (CK-2) CK-MB (CK-2) Rel Index Troponin I (0.01-0.034) ng/mL Total Protein (6.3-8.2) g/dL Albumin (3.5-5.0) g/dL Globulin (1.7-4.1) g/dL Albumin/Globulin Ratio (1.0-2.8) SARS-CoV-2 (PCR) Negative (Negative) Blood Type Antibody Screen Crossmatch Point of Care Testing Stool Occult Blood Positive Discharge Plan Departure Clinical Impression: Acute upper gastrointestinal bleeding Admit Date/Time: 08/31/21 08:29 Admit Provider: Norman Bill
[2021-08-31] MEDS: PANTOPRAZOLE 40 MG VIAL 80 MG IV (07:13)
[2021-08-31] MEDS: ONDANSETRON 4 MG/2 ML INJ IV (07:23)
[2021-08-31] MEDS: METOCLOPRAMIDE 10 MG/2 ML INJ IV (07:23)
[2021-08-31 07:26] LABS: Add Manual Diff / Slide Review NO; Basophils Absolute Auto 100 /uL (0-100); Basophils Percent Auto 0.5 % (0-2); Eosinophils Absolute Auto 100 /uL (0-450); Lymphocytes Absolute Auto 1900 /uL (1100-4500); Lymphocytes Percent Auto 15.9 % (25-40); Mean Corpuscular HGB Conc 33.4 % (30-36); Mean Corpuscular Hemoglobin 32.3 PG (26-34); Mean Corpuscular Volume 96.8 fL (80-100); Monocytes Absolute Auto 600 /uL (0-900); Monocytes Percent Auto 4.8 % (3-14); Neutrophils Absolute Auto 9400 /uL (1500-7000); Neutrophils Percent Auto 77.8 % (50-75); Platelet Count 266 X10^3/uL (150-400); Red Blood Cell Count 1.96 X10^6/uL (4.5-5.9); Red Cell Distribution Width 17.5 % (11.6-14.8)
[2021-08-31 07:29] LABS: Hemoglobin 6.3 g/dL (13.5-17.5)
[2021-08-31 07:31] LABS: Alanine Aminotransferase 48 IU/L (<50); Albumin 2.5 g/dL (3.5-5.0); Albumin Globulin Ratio 1.1 (1.0-2.8); Alkaline Phosphatase 67 U/L (38-126); Aspartate Aminotransferase 36 IU/L (17-59); BUN Creatinine Ratio 12.9 (6-22); Bilirubin Total 0.4 mg/dL (0.2-1.3); Blood Urea Nitrogen 21 mg/dL (9-20); COVID19 -Nasal RAPID Negative (Negative); Calcium 7.9 mg/dL (8.4-10.2); Carbon Dioxide 20 mmol/L (22-32); Chloride 102 mmol/L (98-107); Creatine Kinase 27 U/L (55-170); Estimated Glomerular Filt Rate 48 mL/min (>60); Globulin 2.2 g/dL (1.7-4.1); Glucose 254 mg/dL (80-110); HEMOLYSIS < 15 (0-50); Magnesium 2.3 mg/dL (1.6-2.3); Potassium 3.7 mmol/L (3.4-5.1); Sodium 131 mmol/L (137-145); Total Protein 4.7 g/dL (6.3-8.2)
[2021-08-31 07:42] LABS: Troponin I 0.082 ng/mL (0.01-0.034)
--- NOTE | 2021-08-31 08:31 | P.CONS_ITS ---
History of Present Illness Consult details Date Patient Seen: 08/31/21 Time Patient Seen: 08:31 Chief complaint: passed out, Narrative: 61 year old man presents to the hospital today with GI bleed. He has a history of prior perforated gastric ulcer 2 years ago who underwent unknown repair. He has been on PPI ever since. No NSAIDs, does not use alcohol active tobacco use. He was discharged from [facility] yesterday following an admission for upper GI bleed. Endoscopy 08/28 demonstrated a large ulcer in the distal stomach/pylorus which was covered with clot it was not actively bleeding at the time. Today he presented with abdominal pain, hematemesis and reports passing out. Admission heart rate 110 blood pressure 80/50 initial hematocrit 6.3 platelets 266. Multiple medical comorbidities -CAD -PVD Meds Home Medications and Allergies Home Medications Medication Instructions Recorded Confirmed Type amlodipine 5 mg tablet 1 tab PO BID 08/27/21 08/27/21 History atorvastatin 20 mg tablet 1 tab PO DAILY 08/27/21 08/27/21 History carvedilol 6.25 mg tablet 1 tab PO BID 08/27/21 08/27/21 History dapsone 100 mg tablet 1 tab PO DAILY 08/27/21 08/27/21 History isosorbide dinitrate 5 mg tablet 1 tab PO BID 08/27/21 08/27/21 History losartan 50 mg tablet 1 tab PO DAILY 08/27/21 08/27/21 History spironolactone 25 mg tablet 1 tab PO DAILY 08/27/21 08/27/21 History pantoprazole 40 mg tablet,delayed 40 mg PO BID 30 days #60 tabs 08/29/21 Rx release Allergies Allergy/AdvReac Type Severity Reaction Status Date / Time No Known Drug Allergies Allergy Verified 08/27/21 09:34 Exam Vital Signs (past 8 hours): - 08/31/21 07:00 08/31/21 07:03 08/31/21 07:05 Temperature 97.4 F L Pulse Rate 56 L 68 Respiratory Rate 18 Blood Pressure 91/58 L Pulse Oximetry 98 98 98 Oxygen Delivery Method Room Air Nasal Cannula Nasal Cannula Oxygen Flow Rate 2 2 08/31/21 07:05 08/31/21 07:08 08/31/21 07:08 Temperature Pulse Rate 49 L Respiratory Rate Blood Pressure 91/58 L 101/57 L Pulse Oximetry 98 Oxygen Delivery Method Nasal Cannula Oxygen Flow Rate 2 08/31/21 07:12 08/31/21 07:20 08/31/21 07:28 Temperature Pulse Rate 33 L 107 H Respiratory Rate Blood Pressure 83/46 L Pulse Oximetry 95 98 Oxygen Delivery Method Nasal Cannula Nasal Cannula Oxygen Flow Rate 2 2 08/31/21 07:28 08/31/21 07:30 08/31/21 07:31 Temperature Pulse Rate 100 H 99 H Respiratory Rate 14 14 Blood Pressure 90/66 Pulse Oximetry 96 95 Oxygen Delivery Method Nasal Cannula Nasal Cannula Oxygen Flow Rate 2 2 08/31/21 07:31 08/31/21 07:40 08/31/21 07:40 Temperature Pulse Rate 97 H 104 H Respiratory Rate 15 18 Blood Pressure 105/57 L Pulse Oximetry 95 96 Oxygen Delivery Method Nasal Cannula Nasal Cannula Oxygen Flow Rate 2 2 08/31/21 07:45 08/31/21 07:45 08/31/21 07:50 Temperature Pulse Rate 97 H Respiratory Rate 16 Blood Pressure 108/57 L 101/53 L Pulse Oximetry 96 Oxygen Delivery Method Nasal Cannula Oxygen Flow Rate 2 08/31/21 07:50 Temperature Pulse Rate 94 H Respiratory Rate 12 Blood Pressure Pulse Oximetry 97 Oxygen Delivery Method Nasal Cannula Oxygen Flow Rate 2 Oxygen Delivery Method Nasal Cannula Oxygen Flow Rate 2 Narrative Exam Narrative: General thin ill-appearing man Chest mildly labored respirations Cardiac sinus tachycardia Abdomen tender epigastric no peritonitis Extremities warm Objective Labs Result Diagrams: 08/31/21 07:09 08/31/21 07:09 Labs: Laboratory Results - last 24 hr 08/31/21 08/31/21 08/31/21 07:09 07:09 07:09 WBC 12.0 H RBC 1.96 L Hgb 6.3 L* Hct 19.0 L* MCV 96.8 MCH 32.3 MCHC 33.4 RDW 17.5 H Plt Count 266 Neut % (Auto) 77.8 H Lymph % (Auto) 15.9 L [place] % (Auto) 4.8 Eos % (Auto) 1.0 L Baso % (Auto) 0.5 Neut # (Auto) 9400 H Lymph # (Auto) 1900 [place] # (Auto) 600 Eos # (Auto) 100 Baso # (Auto) 100 Sodium 131 L Potassium 3.7 Chloride 102 Carbon Dioxide 20 L BUN 21 H Creatinine 1.63 H Estimated GFR 48 L BUN/Creatinine Ratio 12.9 Glucose 254 H D Calcium 7.9 L Magnesium 2.3 Total Bilirubin 0.4 AST 36 ALT 48 Alkaline Phosphatase 67 Total Creatine Kinase 27 L CK-MB (CK-2) TNP CK-MB (CK-2) Rel Index TNP Troponin I 0.082 H Total Protein 4.7 L Albumin 2.5 L Globulin 2.2 Albumin/Globulin Ratio 1.1 SARS-CoV-2 (PCR) Blood Type O Positive Antibody Screen Negative Crossmatch See Detail 08/31/21 07:09 WBC RBC Hgb Hct MCV MCH MCHC RDW Plt Count Neut % (Auto) Lymph % (Auto) [place] % (Auto) Eos % (Auto) Baso % (Auto) Neut # (Auto) Lymph # (Auto) [place] # (Auto) Eos # (Auto) Baso # (Auto) Sodium Potassium Chloride Carbon Dioxide BUN Creatinine Estimated GFR BUN/Creatinine Ratio Glucose Calcium Magnesium Total Bilirubin AST ALT Alkaline Phosphatase Total Creatine Kinase CK-MB (CK-2) CK-MB (CK-2) Rel Index Troponin I Total Protein Albumin Globulin Albumin/Globulin Ratio SARS-CoV-2 (PCR) Negative Blood Type Antibody Screen Crossmatch FORMERLY [facility], 1928–1983 Medical History CAD (coronary artery disease) Gastric ulcer Gluten enteropathy Hyperlipidemia Hypertension Surgical History History of nephrectomy Hx of CABG Family History Mother Stroke Father Stroke Social History household members: spouse Tobacco & Substance Use Smoking Status: Current every day smoker Assessment & Plan Assessment and plan (1) Acute upper gastrointestinal bleeding: Status: Acute Assessment & Plan narrative: 61 year old man chronically on PPI with a large gastric/duodenal bulb ulcer with active hemorrhage who has failure of endoscopic therapy. Moderate hemodynamic instability. Discussed with patient and his my recommendations to proceed to the operating room for control of hemorrhage and possible gastric resection with reconstruction. An overview of the operation was discussed. Operative risks including bleeding, enterotomy, anastamotic leak, anesthetic complication and were discussed. Time Spent With Patient Critical Care time: I spent a total of [] minutes of critical care time on this patient's care today; this time is exclusive of procedural time.
[2021-08-31] MEDS: LACTATED RINGERS 1,000 ML 100 ML IV ×2 (08:40→10:01)
[2021-08-31] MEDS: SODIUM CHLORIDE 0.9% 1,000 ML 100 ML IV (08:45)
[2021-08-31] MEDS: ETOMIDATE 2 MG/ML 10 ML VIAL 17 MG IV (09:10)
[2021-08-31] MEDS: PIPERACILLIN/TAZO 3.375 GM in SODIUM CHLORIDE 0.9% 100 ML IV ×3 (09:20→21:12)
--- NOTE | 2021-08-31 09:49 | SUR.OPER ---
Supine on padded OR bed, head on pillow, arms secured on padded arm boards at <90 degrees abduction, legs uncrossed, pillow under knees, safety belt at thigh, tape over blanket over lower legs, gel pad under bilateral heels.
--- NOTE | 2021-08-31 10:29 | SUR.OPER ---
Blood units exceeded the 15 minute start window after issue time due to blood bank issuing 3 units to OR inside a cooler per anesthesiologist order.
[2021-08-31 11:26] LABS: Hematocrit 25.8 % (41-53); Hemoglobin 8.6 g/dL (13.5-17.5)
[2021-08-31] MEDS: SUGAMMADEX 500 MG/5 ML VIAL 150 MG IV (13:00)
--- NOTE | 2021-08-31 13:30 | P.OP_ITS ---
Operative Date/Time/Diagnoses Date of procedure: 08/31/21 Time of procedure: 13:30 Pre-op diagnosis: perforated gastric ulcer Post-op diagnosis: same Procedure & Clinicians Procedure: exploratory laparotomy antrectomy truncal vagotomy biliroth 2 reconstruction Same procedure as scheduled: Yes Indications: 61-year-old man with a history of gastric ulcers on PPI therapy. He he was in the hospital several days ago for a bleeding gastric ulcer underwent endoscopy which showed a large ulcer that was not actively bleeding he was ultimately di scharged from the hospital. He presented 48 hours after discharge with peritonitis and hematemesis. He is taken to the operating room for control of hemorrhage secondary to upper GI bleed possible gastric resection. Surgeon: Paolo Bradley Retail Support Specialist: Kenyon Cartwright Anesthesia Type: General Operative Notes Findings: 5 cm perforated gastric ulcer extending from pylorus onto 1st portion of duodenum. biliary peritonitis Specimen(s): other (stomach-stitch at distal end. vagal nerve) Estimated Blood Loss (mL): 200 Procedure in detail: Patient was taken to the operating room placed supine on the table. Bilateral lower extremity compression devices were applied. General anesthesia was induced and he was intubated with an endotracheal tube. A nasogastric tube was placed. A De Jesus catheter was sterilely placed. He was prepped and draped in sterile fashion. Time-out was performed. He received Zosyn prior to skin incision. An upper midline incision was made in the abdomen was entered atraumatically. A thorough examination of the abdomen was made inspecting all 4 quadrants. A 5 cm ulcer over the pyloric channel was observed with associated biliary peritonitis. The stomach was mobilized by incising the gastrocolic ligament to enter the lesser sac and the gastro hepatic ligament. The common bile duct was observed and it was approximately 5 mm away from the lateral extent of the perforation. The hepatic flexure was mobilized by taking the ascending colon off its abdominal wall attachments following the white line of Toldt. The lateral peritoneal attachments to the duodenum were sharply dissected allowing medial mobilization of the duodenum. The duodenum was divided using the TAZ stapler medial to the common bile duct. The entirety of the ulcer could not be resected using the stapler given its proximity to the common bile duct. The staple line was inspected for hemostasis. The remaining ulcer edge was sharply debrided back to healthy tissue and then closed in 2 layer fashion using Vicryl and interrupted silk suture. The stump was tested and there was no evidence of leak. The antrum was resected using 2 additional fi rings of the TAZ stapler. The gastric staple line was then imbricated with silk suture in interrupted fashion. The proximal short gastrics were divided and the left and right lele were identified. A window posterior to the esophagus was carefully made and a Hammond drain was placed around the distal esophagus. The anterior and posterior vagal nerve trunks were identified were clipped proximal and distal and then a short segment was resected from each, the anterior nerve was sent as specimen. A window within the transverse mesocolon was made and then a loop of small bowel was brought through the window. A [id number] gastrojejunostomy was then fashioned. A gastrostomy and a enterotomy were formed and a stapler was used to create a common channel. The common opening was inspected it was hemostatic and widely patent. The common opening was then closed with a 3-0 PDS suture in running fashion and then it was imbricated using silk suture. The anastomosis was tested there was no evidence of leak it was tension-free and well perfused. The abdomen was then copiously lavaged. A 10 Somali flat drain was then placed adjacent to the duodenal stump and brought out through the abdominal wall. The fascia was then closed with 1. PDS suture. The subcutaneous tissue was reapproximated with Vicryl and the skin was closed with tyler. Patient tolerated the operation well and was transferred recovery in stable condition. Complications: none Post-operative Condition: stable Disposition: ICU
--- NOTE | 2021-08-31 14:51 | PM.HP.1 ---
History of Present Illness History of Present Illness Date Patient Seen: 08/31/21 Time Patient Seen: 15:30 Chief complaint: passed out, Narrative: The patient is a 60-year-old male With a history of hypertension, hyperlipidemia, coronary disease status coronary artery bypass graft, recent diagnosis of right lower lobe pneumonia, history of allergies to gluten, and a history of gastric ulcer whom was recently admitted for GI bleeding, found to have a gastric ulcer with an adherent clot on EGD. He was discharged home with apparent cessation of bleeding, but returned with hematemesis this morning, pale and diaphoretic. He was ordered for 4 units of blood, h/h was 6.3 this AM from 8.7 at the time of discharge. He went from the ER to the OR directly, admitted to the ICU following surgical intervention. He was found to have a perforated gastric ulcer in the OR, underwent ex lap, antretomy, vagotomy, biliroth II gastrojejunostomy. He received the 4 units of blood and 4L of IV fluid.H/h improved to 8.6. He is seen after surgery, still slightly sedated but comfortable. Patient History Medical History CAD (coronary artery disease) Gastric ulcer Gluten enteropathy Hyperlipidemia Hypertension Surgical History History of nephrectomy Hx of CABG Family & Social History Family History Mother Stroke Father Stroke Social History: household members spouse Safety & Behavioral: Feels Safe in Current Yes Environment Been Physically Hurt or No Threatened By a Person Tobacco & Substance use: Tobacco type cigarettes Smoking Status Current every day smoker alcohol intake frequency holiday/special occasion Substance Use Type does not use Meds Home Medications and Allergies Home Medications Medication Instructions Recorded Confirmed Type amlodipine 5 mg tablet 1 tab PO BID 08/27/21 08/27/21 History atorvastatin 20 mg tablet 1 tab PO DAILY 08/27/21 08/27/21 History carvedilol 6.25 mg tablet 1 tab PO BID 08/27/21 08/27/21 History dapsone 100 mg tablet 1 tab PO DAILY 08/27/21 08/27/21 History isosorbide dinitrate 5 mg tablet 1 tab PO BID 08/27/21 08/27/21 History losartan 50 mg tablet 1 tab PO DAILY 08/27/21 08/27/21 History spironolactone 25 mg tablet 1 tab PO DAILY 08/27/21 08/27/21 History pantoprazole 40 mg tablet,delayed 40 mg PO BID 30 days #60 tabs 08/29/21 Rx release Allergies Allergy/AdvReac Type Severity Reaction Status Date / Time No Known Drug Allergies Allergy Verified 08/27/21 09:34 Review of Systems Review of Systems Narrative: All other systems reviewed with the patient and are negative unless otherwise stated. Exam Vital Signs (past 8 hours): - 08/31/21 07:00 08/31/21 07:03 08/31/21 07:05 Temperature 97.4 F L Pulse Rate 56 L 68 Respiratory Rate 18 Blood Pressure 91/58 L Pulse Oximetry 98 98 98 Oxygen Delivery Method Room Air Nasal Cannula Nasal Cannula Oxygen Flow Rate 2 2 08/31/21 07:05 08/31/21 07:08 08/31/21 07:08 Temperature Pulse Rate 49 L Respiratory Rate Blood Pressure 91/58 L 101/57 L Pulse Oximetry 98 Oxygen Delivery Method Nasal Cannula Oxygen Flow Rate 2 08/31/21 07:12 08/31/21 07:20 08/31/21 07:28 Temperature Pulse Rate 33 L 107 H Respiratory Rate Blood Pressure 83/46 L Pulse Oximetry 95 98 Oxygen Delivery Method Nasal Cannula Nasal Cannula Oxygen Flow Rate 2 2 08/31/21 07:28 08/31/21 07:30 08/31/21 07:31 Temperature Pulse Rate 100 H 99 H Respiratory Rate 14 14 Blood Pressure 90/66 Pulse Oximetry 96 95 Oxygen Delivery Method Nasal Cannula Nasal Cannula Oxygen Flow Rate 2 2 08/31/21 07:31 08/31/21 07:40 08/31/21 07:40 Temperature Pulse Rate 97 H 104 H Respiratory Rate 15 18 Blood Pressure 105/57 L Pulse Oximetry 95 96 Oxygen Delivery Method Nasal Cannula Nasal Cannula Oxygen Flow Rate 2 2 08/31/21 07:45 08/31/21 07:45 08/31/21 07:50 Temperature Pulse Rate 97 H Respiratory Rate 16 Blood Pressure 108/57 L 101/53 L Pulse Oximetry 96 Oxygen Delivery Method Nasal Cannula Oxygen Flow Rate 2 08/31/21 07:50 08/31/21 08:33 08/31/21 08:00 Temperature 98.1 F Pulse Rate 94 H 99 H 95 H Respiratory Rate 12 20 14 Blood Pressure 98/52 L Pulse Oximetry 97 97 Oxygen Delivery Method Nasal Cannula Oxygen Flow Rate 2 08/31/21 08:10 08/31/21 08:19 08/31/21 08:19 Temperature Pulse Rate 93 H 96 H Respiratory Rate 18 12 Blood Pressure 103/53 L Pulse Oximetry 96 93 Oxygen Delivery Method Oxygen Flow Rate 08/31/21 08:20 08/31/21 08:21 08/31/21 08:21 Temperature Pulse Rate 93 H 94 H Respiratory Rate 13 14 Blood Pressure 120/50 L Pulse Oximetry 99 98 Oxygen Delivery Method Oxygen Flow Rate 08/31/21 08:25 08/31/21 08:25 08/31/21 08:31 Temperature Pulse Rate 96 H Respiratory Rate 16 20 Blood Pressure 98/51 L Pulse Oximetry 97 97 Oxygen Delivery Method Oxygen Flow Rate 08/31/21 08:51 08/31/21 08:50 08/31/21 08:49 Temperature 97.5 F L 97.5 F L Pulse Rate 94 H 94 H 94 H Respiratory Rate 20 22 22 Blood Pressure 72/42 L 72/42 L 79/49 L Pulse Oximetry 91 95 Oxygen Delivery Method Room Air Nasal Cannula Nasal Cannula Oxygen Flow Rate 4 4 08/31/21 13:24 08/31/21 13:29 08/31/21 13:34 Temperature 99.5 F 99.9 F H Pulse Rate 85 85 95 H Respiratory Rate 29 H 22 20 Blood Pressure 121/60 130/55 L 115/64 Pulse Oximetry 100 100 96 Oxygen Delivery Method Simple Mask Simple Mask Room Air Oxygen Flow Rate 10 10 08/31/21 14:00 Temperature 99.3 F Pulse Rate 96 H Respiratory Rate 17 Blood Pressure 119/59 L Pulse Oximetry 95 Oxygen Delivery Method Room Air Oxygen Flow Rate Oxygen Delivery Method Room Air Oxygen Flow Rate 10 Narrative Exam Narrative: General:?Ill appearing male, appears uncomfortable but not in distress. HEENT:? Normocephalic, atraumatic, extraocular muscles intact, oral pharynx is clear and mucous membranes are moist. NG tube in place with bloody output. Neck: supple and symmetric, trachea is midline, no cervical adenopathy. Chest:? Normal AP diameter and contour without kyphoscoliosis, no tachypnea Lungs:? CTA b/l no wheezing rhonchi or rales, poor effort Cardio:?RRR no m/r/g. Abdomen: soft, incisions c/d/i. LINA drain in place. Musculoskeletal:? Muscle strength and tone are equal within normal limits, no deformity. Extremities: No edema or joint effusions. No cyanosis or clubbing. Skin:? Pale,? Warm to touch,dry and intact without rashes, ulcerations or petechiae.? Neuro:?alert, falls asleep easily. Psych:?unable to assess Objective ECG Impression: Sinus tachycardia, possible borderline ST depressions in V4 and V5. Labs Result Diagrams: 08/31/21 Unknown 08/31/21 07:09 Labs: Laboratory Results - last 24 hr 08/31/21 08/31/21 08/31/21 07:09 07:09 07:09 WBC 12.0 H RBC 1.96 L Hgb 6.3 L* Hct 19.0 L* MCV 96.8 MCH 32.3 MCHC 33.4 RDW 17.5 H Plt Count 266 Neut % (Auto) 77.8 H Lymph % (Auto) 15.9 L [place] % (Auto) 4.8 Eos % (Auto) 1.0 L Baso % (Auto) 0.5 Neut # (Auto) 9400 H Lymph # (Auto) 1900 [place] # (Auto) 600 Eos # (Auto) 100 Baso # (Auto) 100 Sodium 131 L Potassium 3.7 Chloride 102 Carbon Dioxide 20 L BUN 21 H Creatinine 1.63 H Estimated GFR 48 L BUN/Creatinine Ratio 12.9 Glucose 254 H D Calcium 7.9 L Magnesium 2.3 Total Bilirubin 0.4 AST 36 ALT 48 Alkaline Phosphatase 67 Total Creatine Kinase 27 L CK-MB (CK-2) TNP CK-MB (CK-2) Rel Index TNP Troponin I 0.082 H Total Protein 4.7 L Albumin 2.5 L Globulin 2.2 Albumin/Globulin Ratio 1.1 SARS-CoV-2 (PCR) Blood Type O Positive Antibody Screen Negative Crossmatch See Detail 08/31/21 08/31/21 07:09 Unknown WBC RBC Hgb 8.6 L Hct 25.8 L MCV MCH MCHC RDW Plt Count Neut % (Auto) Lymph % (Auto) [place] % (Auto) Eos % (Auto) Baso % (Auto) Neut # (Auto) Lymph # (Auto) [place] # (Auto) Eos # (Auto) Baso # (Auto) Sodium Potassium Chloride Carbon Dioxide BUN Creatinine Estimated GFR BUN/Creatinine Ratio Glucose Calcium Magnesium Total Bilirubin AST ALT Alkaline Phosphatase Total Creatine Kinase CK-MB (CK-2) CK-MB (CK-2) Rel Index Troponin I Total Protein Albumin Globulin Albumin/Globulin Ratio SARS-CoV-2 (PCR) Negative Blood Type Antibody Screen Crossmatch Assessment & Plan Assessment & Plan narrative: 60-year-old male with a history of coronary artery disease, history of CABG, hypertension, hyperlipidemia, gluten enteropathy, history of gastric ulcer requiring surgical repair recently admitted with gastric ulcer with adherent clot on endoscopy, re-presented with hematemesis admitted to the ICU after immediately surgical management of perforated gastric ulcer, now s/p ex-lap, antrectomy, vagotomy, and biliroth II gastrojejunostomy with general surgery. Acute upper GI bleed, with associated acute blood loss anemia, perforated gastric ulcer - Now S/p above surgical interventions for perforated gastric ulcer - tele-reverberatory furnace operator consultation. - s/p 4 U PRBC, 4 L IVF. Tele-reverberatory furnace operator recommends calcium, FFP, and plt x1 after OR along with 1g calcium. - continue zosyn. Was given fluconazole but not high risk so will hold on future doses. - IV PPI - [employer] Youth Supervisor consultation for feeding recommendations (TPN if needed) Coronary bypass graft with myocardial injury, improved - troponin in ER improved since prior admission. - EKG sinus tachycardia with possible slight ST depression V4-5, will repeat EKG. No current chest pain Hyponatremia - stable since prior discharge DORIAN on Chronic kidney disease stage 3 - DORIAN secondary to acute blood loss anemia - continue to follow. Hyperlipidemia. hold home meds while npo Gluten enteropathy - hold home meds while npo Hypertension - IV therapies prn for SBP>170 Bilateral lower extremity stents,/peripheral vascular disease -patient reports he is a full code, his is his surrogate decision maker. DVT: SCD given recent surgery Dispo: Admit to ICU I have utilized all available immediate resources to obtain, update, or review the patient's current medications. I spent 45 minutes providing critical care management this patient. This excludes time spent in performing separately billed procedures. COVID-19 COVID-19 status: Negative Time Spent With Patient Critical Care time: I spent a total of [] minutes of critical care time on this patient's care today; this time is exclusive of procedural time. Quality MIPS - Admit I confirm the patient?s Advance Care Plan is present, Code status is documented, Surrogate decision maker is in patient?s record [If Yes, STOP here]: Yes
[2021-08-31] MEDS: FLUCONAZOLE 400 MG/200 ML PIGGYBACK 100 MG IV (15:28)
[2021-08-31] MEDS: HYDROMORPHONE 0.5 MG INJ 1 MG IV (15:29)
--- NOTE | 2021-08-31 15:35 | P.TELICUCN_ITS ---
History of Present Illness Consult details If camera was activated, add TeleICU A-V Statement: Rahwaaneta used to interacti with bedside nurse and aptient Date Patient Seen: 08/31/21 Chief complaint: passed out, Narrative: post op ex-lap no current complaints [facility] Medical History CAD (coronary artery disease) Gastric ulcer Gluten enteropathy Hyperlipidemia Hypertension Surgical History History of nephrectomy Hx of CABG Family History Mother Stroke Father Stroke Social History household members: spouse Smoking Status: Current every day smoker Current Medications Current Medications Medications: Home Medications amlodipine 5 mg tablet 1 tab PO BID 08/27/21 [History Confirmed 08/27/21] atorvastatin 20 mg tablet 1 tab PO DAILY 08/27/21 [History Confirmed 08/27/21] carvedilol 6.25 mg tablet 1 tab PO BID 08/27/21 [History Confirmed 08/27/21] dapsone 100 mg tablet 1 tab PO DAILY 08/27/21 [History Confirmed 08/27/21] isosorbide dinitrate 5 mg tablet 1 tab PO BID 08/27/21 [History Confirmed 08/27/21] losartan 50 mg tablet 1 tab PO DAILY 08/27/21 [History Confirmed 08/27/21] spironolactone 25 mg tablet 1 tab PO DAILY 08/27/21 [History Confirmed 08/27/21] pantoprazole 40 mg tablet,delayed release 40 mg PO BID 30 days #60 tabs 08/29/21 [Rx] Visit Medications (administered) Generic Name Dose Route Start Last Admin Trade Name Freq PRN Reason Stop Dose Admin Hydromorphone HCl 1 mg 08/31/21 13:26 08/31/21 15:29 Hydromorphone 0.5 Mg Inj IV 1 mg Q2H PRN Administration Breakthrough pain only (8-10) Lactated Ringer's 1,000 mls @ 100 mls/hr 08/31/21 09:59 08/31/21 14:30 Lactated Ringers IV 08/31/21 19:58 Infused NOW ONE Infusion Sodium Chloride 1,000 mls @ 100 mls/hr 08/31/21 11:10 08/31/21 14:30 Normal Saline 0.9% IV 08/31/21 21:09 Infused NOW ONE Infusion Fluconazole 400 mg in 200 mls @ 100 mls/hr 08/31/21 13:26 08/31/21 15:28 Diflucan IV 100 mls/hr Q24H EVELINA Administration Piperacillin Sod/Tazobactam 100 mls @ 25 mls/hr 08/31/21 13:30 08/31/21 15:29 Sod 3.375 gm/ Sodium Chloride IV 25 mls/hr Q8H EVELINA Administration Pantoprazole Sodium 40 mg 08/31/21 13:30 08/31/21 15:29 Pantoprazole 40 Mg Vial IV Not Given DAILY EVELINA Exam Vital Signs (past 8 hours): - 08/31/21 07:40 08/31/21 07:40 08/31/21 07:45 Temperature Pulse Rate 104 H 97 H Respiratory Rate 18 16 Blood Pressure 105/57 L Pulse Oximetry 96 96 Oxygen Delivery Method Nasal Cannula Nasal Cannula Oxygen Flow Rate 2 2 08/31/21 07:45 08/31/21 07:50 08/31/21 07:50 Temperature Pulse Rate 94 H Respiratory Rate 12 Blood Pressure 108/57 L 101/53 L Pulse Oximetry 97 Oxygen Delivery Method Nasal Cannula Oxygen Flow Rate 2 08/31/21 08:33 08/31/21 08:00 08/31/21 08:10 Temperature 98.1 F Pulse Rate 99 H 95 H 93 H Respiratory Rate 20 14 18 Blood Pressure 98/52 L Pulse Oximetry 97 96 Oxygen Delivery Method Oxygen Flow Rate 08/31/21 08:19 08/31/21 08:19 08/31/21 08:20 Temperature Pulse Rate 96 H 93 H Respiratory Rate 12 13 Blood Pressure 103/53 L Pulse Oximetry 93 99 Oxygen Delivery Method Oxygen Flow Rate 08/31/21 08:21 08/31/21 08:21 08/31/21 08:25 Temperature Pulse Rate 94 H 96 H Respiratory Rate 14 16 Blood Pressure 120/50 L Pulse Oximetry 98 97 Oxygen Delivery Method Oxygen Flow Rate 08/31/21 08:25 08/31/21 08:31 08/31/21 08:51 Temperature 97.5 F L Pulse Rate 94 H Respiratory Rate 20 20 Blood Pressure 98/51 L 72/42 L Pulse Oximetry 97 91 Oxygen Delivery Method Room Air Nasal Cannula Oxygen Flow Rate 4 08/31/21 08:50 08/31/21 08:49 08/31/21 13:24 Temperature 97.5 F L 99.5 F Pulse Rate 94 H 94 H 85 Respiratory Rate 22 22 29 H Blood Pressure 72/42 L 79/49 L 121/60 Pulse Oximetry 95 100 Oxygen Delivery Method Nasal Cannula Simple Mask Oxygen Flow Rate 4 10 08/31/21 13:29 08/31/21 13:34 08/31/21 14:00 Temperature 99.9 F H 99.3 F Pulse Rate 85 95 H 96 H Respiratory Rate 22 20 17 Blood Pressure 130/55 L 115/64 119/59 L Pulse Oximetry 100 96 95 Oxygen Delivery Method Simple Mask Room Air Room Air Oxygen Flow Rate 10 08/31/21 14:45 08/31/21 15:15 Temperature 99.1 F 100.0 F H Pulse Rate 94 H 98 H Respiratory Rate 13 15 Blood Pressure 144/67 H 137/59 L Pulse Oximetry 98 97 Oxygen Delivery Method Oxygen Flow Rate 0 0 Oxygen Delivery Method Room Air Oxygen Flow Rate 0 Objective Labs Result Diagrams: 08/31/21 Unknown 08/31/21 07:09 Labs: Laboratory Results - last 24 hr 08/31/21 08/31/21 08/31/21 07:09 07:09 07:09 WBC 12.0 H RBC 1.96 L Hgb 6.3 L* Hct 19.0 L* MCV 96.8 MCH 32.3 MCHC 33.4 RDW 17.5 H Plt Count 266 Neut % (Auto) 77.8 H Lymph % (Auto) 15.9 L [place] % (Auto) 4.8 Eos % (Auto) 1.0 L Baso % (Auto) 0.5 Neut # (Auto) 9400 H Lymph # (Auto) 1900 [place] # (Auto) 600 Eos # (Auto) 100 Baso # (Auto) 100 Sodium 131 L Potassium 3.7 Chloride 102 Carbon Dioxide 20 L BUN 21 H Creatinine 1.63 H Estimated GFR 48 L BUN/Creatinine Ratio 12.9 Glucose 254 H D Calcium 7.9 L Magnesium 2.3 Total Bilirubin 0.4 AST 36 ALT 48 Alkaline Phosphatase 67 Total Creatine Kinase 27 L CK-MB (CK-2) TNP CK-MB (CK-2) Rel Index TNP Troponin I 0.082 H Total Protein 4.7 L Albumin 2.5 L Globulin 2.2 Albumin/Globulin Ratio 1.1 SARS-CoV-2 (PCR) Blood Type O Positive Antibody Screen Negative Crossmatch See Detail 08/31/21 08/31/21 07:09 Unknown WBC RBC Hgb 8.6 L Hct 25.8 L MCV MCH MCHC RDW Plt Count Neut % (Auto) Lymph % (Auto) [place] % (Auto) Eos % (Auto) Baso % (Auto) Neut # (Auto) Lymph # (Auto) [place] # (Auto) Eos # (Auto) Baso # (Auto) Sodium Potassium Chloride Carbon Dioxide BUN Creatinine Estimated GFR BUN/Creatinine Ratio Glucose Calcium Magnesium Total Bilirubin AST ALT Alkaline Phosphatase Total Creatine Kinase CK-MB (CK-2) CK-MB (CK-2) Rel Index Troponin I Total Protein Albumin Globulin Albumin/Globulin Ratio SARS-CoV-2 (PCR) Negative Blood Type Antibody Screen Crossmatch Assessment & Plan Assessment & Plan narrative: patient seen chart/labs/imaging reviewed 60 year old male with PMHx of HRn, HLD, CAD s/p CABG gastric ulcer admitted ICU s/p ex-lap for acute abdomen for peptic ulcer and gastro intestinal bleeding uncomplicated procedure as per op-note, billroth 2 received 4 units of prbc currently afebrile, HD stable mental status intact adequate urine output repeat hgb 8.5 suggest -neurochecks seizure precautions -minimize opiod use -repeat labs, transfuse prn -give 1 unit of platelets 1 unit of ffp -abx- check cxs -npo/ngt -surgery following -keep glucose 140-180s -monitor ins/outs -replace lytes prn -GI/DVT ppx, no ac, ppi bid -please call eICU prn . Time Spent With Patient Critical Care time: I spent a total of [] minutes of critical care time on this patient's care today; this time is exclusive of procedural time.
[2021-08-31] MEDS: HYDROMORPHONE 2 MG INJ IV ×4 (16:47→22:40)
--- NOTE | 2021-08-31 18:44 | PC.NURSE ---
1440- Rec'd pt from PACU to rm 230. Pt is oriented, drowsy but following commands and answering questions with very soft but clear speech. Bedside rounds with tele bottom turner. Discussed plan of care. Called pt's spouse per request and updated on plan of care. Oriented to room/routine/fall risk/use of call light. Pt verbalizes understanding.
[2021-08-31] MEDS: CALCIUM CHLORIDE IV (18:56)
[2021-08-31] MEDS: SODIUM CHLORIDE 0.9% IV (18:56)
--- NOTE | 2021-08-31 20:21 | PM.ICURNDS ---
- :: This patient was seen via real time interactive two-way audiovisual telecommunication. Note: ICU multidisciplinary rounds completed. Patient received 4 units PRBC and 1 unit of FFP. Not on pressor. Awake and oriented X 3. Continue trending H/H every 6 hours X 4. Goal Hb > 7. D/w RN at bedside.
[2021-08-31] MEDS: PANTOPRAZOLE 40 MG VIAL IV (21:12)
[2021-08-31 21:22] LABS: Hematocrit 27.8 % (41-53); Hemoglobin 9.5 g/dL (13.5-17.5)
[2021-09-01] VITALS (26 sets, daily range): BP systolic 113–160; BP diastolic 58–71; PULSE 83–126; RESP 6–25; TEMP 36.6–37.4; O2SAT 91–98
[2021-09-01] MEDS: HYDROMORPHONE 2 MG INJ IV ×3 (00:33→05:19)
[2021-09-01] MEDS: HYDROMORPHONE 1 MG INJ IV ×3 (01:45→06:24)
[2021-09-01 03:20] LABS: Add Manual Diff / Slide Review NO; Basophils Absolute Auto 0 /uL (0-100); Basophils Percent Auto 0.1 % (0-2); Eosinophils Absolute Auto 0 /uL (0-450); Hematocrit 27.2 % (41-53); Lymphocytes Absolute Auto 600 /uL (1100-4500); Lymphocytes Percent Auto 3.6 % (25-40); Mean Corpuscular HGB Conc 33.3 % (30-36); Mean Corpuscular Hemoglobin 30.9 PG (26-34); Mean Corpuscular Volume 92.8 fL (80-100); Monocytes Absolute Auto 700 /uL (0-900); Neutrophils Absolute Auto 16800 /uL (1500-7000); Neutrophils Percent Auto 92.3 % (50-75); Platelet Count 170 X10^3/uL (150-400); Red Blood Cell Count 2.92 X10^6/uL (4.5-5.9); Red Cell Distribution Width 15.2 % (11.6-14.8); White Blood Cell Count 18.2 X10^3/uL (4.5-11.0)
[2021-09-01 03:27] LABS: Albumin 2.3 g/dL (3.5-5.0); Alkaline Phosphatase 71 U/L (38-126); BUN Creatinine Ratio 16.2 (6-22); Bilirubin Total 0.5 mg/dL (0.2-1.3); Blood Urea Nitrogen 22 mg/dL (9-20); Calcium 7.6 mg/dL (8.4-10.2); Carbon Dioxide 25 mmol/L (22-32); Chloride 108 mmol/L (98-107); Estimated Glomerular Filt Rate 60 mL/min (>60); Globulin 2.3 g/dL (1.7-4.1); Glucose 120 mg/dL (80-110); HEMOLYSIS < 15 (0-50); Magnesium 2.1 mg/dL (1.6-2.3); Phosphorous 4.5 mg/dL (2.3-3.7); Potassium 4.8 mmol/L (3.4-5.1); Sodium 134 mmol/L (137-145); Total Protein 4.6 g/dL (6.3-8.2)
[2021-09-01 03:35] LABS: Alanine Aminotransferase 1673 IU/L (<50); Aspartate Aminotransferase 1487 IU/L (17-59)
--- NOTE | 2021-09-01 04:12 | PC.NURSE ---
Addendum entered by Sherly Mejía R.N. 09/01/21 06:47: 0645- Dr. Bradley updated on patients pain issues and lab values. Orders received. Will monitor closely. Addendum entered by Sherly Mejía R.N. 09/01/21 05:55: 0545- Continues to have pain requiring pain medication about every hour. Lungs are clear. Good UOP. AST and ALT elevated this am. Will monitor. Original Note: 0400- Pain control has been an issue all shift. Patient rates pain at 4-8. No bowel tones appreciated. NG remains at LIS with large output. Abdomen is distended and tender, bulky dressing remains CDI. Patient has good uop. H/H remains stable and patient is not tachycardic. Narciso drain is draining serousanguinous fluid. Patient is alert and oriented. Will monitor.
[2021-09-01] MEDS: PIPERACILLIN/TAZO 3.375 GM in SODIUM CHLORIDE 0.9% 100 ML IV ×3 (05:20→20:59)
[2021-09-01] MEDS: HYDROMORPHONE 2 MG INJ 4 MG IV ×5 (08:16→20:58)
[2021-09-01] MEDS: PANTOPRAZOLE 40 MG VIAL IV ×2 (08:45→20:59)
[2021-09-01 09:11] LABS: Hematocrit 25.3 % (41-53); Hemoglobin 8.6 g/dL (13.5-17.5)
--- NOTE | 2021-09-01 09:41 | P.TELICUPN_ITS ---
Subjective Subjective Interval history: no acute events post op no signs of active bleeding Current Medications Current Medications Medications: Home Medications amlodipine 5 mg tablet 1 tab PO BID 08/27/21 [History Confirmed 08/31/21] atorvastatin 20 mg tablet 1 tab PO DAILY 08/27/21 [History Confirmed 08/31/21] carvedilol 6.25 mg tablet 1 tab PO BID 08/27/21 [History Confirmed 08/31/21] dapsone 100 mg tablet 1 tab PO DAILY 08/27/21 [History Confirmed 08/31/21] isosorbide dinitrate 5 mg tablet 1 tab PO BID 08/27/21 [History Confirmed 08/31/21] losartan 50 mg tablet 1 tab PO DAILY 08/27/21 [History Confirmed 08/31/21] spironolactone 25 mg tablet 1 tab PO DAILY 08/27/21 [History Confirmed 08/31/21] pantoprazole 40 mg tablet,delayed release 40 mg PO BID 30 days #60 tabs 08/29/21 [Rx Confirmed 08/31/21] lorazepam 0.5 mg tablet 0.5 tab PO BID 08/31/21 [History Confirmed 08/31/21] Visit Medications (administered) Generic Name Dose Route Start Last Admin Trade Name Freq PRN Reason Stop Dose Admin Hydromorphone HCl 1 mg 08/31/21 16:00 09/01/21 06:24 Hydromorphone 1 Mg Inj IV 1 mg Q2H PRN Administration Breakthrough pain only (8-10) Hydromorphone HCl 4 mg 09/01/21 06:36 09/01/21 08:16 Hydromorphone 2 Mg Inj IV 4 mg Q3H PRN Administration Pain, Severe (7-10) Fluconazole 400 mg in 200 mls @ 100 mls/hr 08/31/21 13:26 08/31/21 17:30 Diflucan IV Infused Q24H EVELINA Infusion Piperacillin Sod/Tazobactam 100 mls @ 25 mls/hr 08/31/21 13:30 09/01/21 05:20 Sod 3.375 gm/ Sodium Chloride IV 25 mls/hr Q8H EVELINA Administration Pantoprazole Sodium 40 mg 08/31/21 21:00 08/31/21 21:12 Pantoprazole 40 Mg Vial IV 40 mg BID EVELINA Administration Objective Labs Result Diagrams: 09/01/21 09:00 09/01/21 03:00 Labs: Laboratory Results - last 24 hr 08/31/21 08/31/21 08/31/21 07:09 11:19 14:55 WBC RBC Hgb 8.6 L Hct 25.8 L MCV MCH MCHC RDW Plt Count Neut % (Auto) Lymph % (Auto) [place] % (Auto) Eos % (Auto) Baso % (Auto) Neut # (Auto) Lymph # (Auto) [place] # (Auto) Eos # (Auto) Baso # (Auto) Sodium Potassium Chloride Carbon Dioxide BUN Creatinine Estimated GFR BUN/Creatinine Ratio Glucose Calcium Phosphorus Magnesium Total Bilirubin AST ALT Alkaline Phosphatase Total Protein Albumin Globulin Albumin/Globulin Ratio Nasal Screen MRSA (PCR) Negative for mrsa Blood Type O Positive Antibody Screen Negative Crossmatch See Detail 08/31/21 09/01/21 09/01/21 21:15 03:00 03:00 WBC 18.2 H D RBC 2.92 L Hgb 9.5 L 9.0 L Hct 27.8 L 27.2 L MCV 92.8 D MCH 30.9 MCHC 33.3 RDW 15.2 H Plt Count 170 Neut % (Auto) 92.3 H Lymph % (Auto) 3.6 L [place] % (Auto) 4.0 Eos % (Auto) 0.0 L Baso % (Auto) 0.1 Neut # (Auto) 32101 H Lymph # (Auto) 600 L [place] # (Auto) 700 Eos # (Auto) 0 Baso # (Auto) 0 Sodium 134 L Potassium 4.8 Chloride 108 H Carbon Dioxide 25 BUN 22 H Creatinine 1.36 H Estimated GFR 60 BUN/Creatinine Ratio 16.2 Glucose 120 H D Calcium 7.6 L Phosphorus 4.5 H Magnesium 2.1 Total Bilirubin 0.5 AST 1487 H ALT 1673 H Alkaline Phosphatase 71 Total Protein 4.6 L Albumin 2.3 L Globulin 2.3 Albumin/Globulin Ratio 1.0 Nasal Screen MRSA (PCR) Blood Type Antibody Screen Crossmatch 09/01/21 09:00 WBC RBC Hgb 8.6 L Hct 25.3 L MCV MCH MCHC RDW Plt Count Neut % (Auto) Lymph % (Auto) [place] % (Auto) Eos % (Auto) Baso % (Auto) Neut # (Auto) Lymph # (Auto) [place] # (Auto) Eos # (Auto) Baso # (Auto) Sodium Potassium Chloride Carbon Dioxide BUN Creatinine Estimated GFR BUN/Creatinine Ratio Glucose Calcium Phosphorus Magnesium Total Bilirubin AST ALT Alkaline Phosphatase Total Protein Albumin Globulin Albumin/Globulin Ratio Nasal Screen MRSA (PCR) Blood Type Antibody Screen Crossmatch Exam Vital Signs (past 8 hours): - 09/01/21 02:00 09/01/21 02:00 09/01/21 03:02 Temperature Pulse Rate 90 Respiratory Rate 9 L Blood Pressure 117/58 L Pulse Oximetry 93 Oxygen Delivery Method Room Air 09/01/21 03:01 09/01/21 03:01 09/01/21 04:00 Temperature Pulse Rate 117 H Respiratory Rate 22 Blood Pressure 132/62 117/64 Pulse Oximetry 96 Oxygen Delivery Method 09/01/21 04:00 09/01/21 04:00 09/01/21 05:00 Temperature 98.0 F Pulse Rate 92 H Respiratory Rate 10 L Blood Pressure 125/60 Pulse Oximetry 91 Oxygen Delivery Method 09/01/21 05:00 09/01/21 06:00 09/01/21 06:00 Temperature Pulse Rate 89 95 H Respiratory Rate 10 L 10 L Blood Pressure 131/62 Pulse Oximetry 93 93 Oxygen Delivery Method 09/01/21 07:00 09/01/21 07:00 09/01/21 08:00 Temperature Pulse Rate 86 Respiratory Rate 13 Blood Pressure 115/58 L 123/58 L Pulse Oximetry 97 Oxygen Delivery Method 09/01/21 08:00 Temperature Pulse Rate 86 Respiratory Rate 7 L Blood Pressure Pulse Oximetry 96 Oxygen Delivery Method Oxygen Delivery Method Room Air Oxygen Flow Rate 0 Assessment & Plan Assessment & Plan narrative: Assessment & Plan narrative: patient seen chart/labs/imaging reviewed 60 year old male with PMHx of HRn, HLD, CAD s/p CABG gastric ulcer admitted ICU s/p ex-lap for acute abdomen for peptic ulcer and gastro intestinal bleeding uncomplicated procedure as per op-note, billroth 2 received 4 units of prbc 1 ffp post op now POD#1 HnH stable AsT/ALT in 1000s suggest -pain control, minimize opiods use -repeat lefts if remain elevated consider RUQ sono -check serial cbc/coags transfuse prn, no active signs of bleeding t this time -zosyn/flucanozole, check cxs -start maintance fluids, monitor for overload -npo/ngt (600 cc of bllious output overnight) -surgery following -keep glucose 140-180s -monitor ins/outs -replace lytes prn -GI/DVT ppx, no ac, ppi bid -please call eICU prn Time Spent With Patient Critical Care time: I spent a total of [] minutes of critical care time on this patient's care today; this time is exclusive of procedural time.
[2021-09-01] MEDS: DEXTROSE 5%-0.45NS W/KCL 20MEQ 1,000 ML 50 MEQ IV (09:54)
[2021-09-01 10:27] LABS: Alanine Aminotransferase 1503 IU/L (<50)
--- NOTE | 2021-09-01 10:45 | P.PN_ITS ---
Subjective Subjective Date Patient Seen: 09/01/21 Time Patient Seen: 10:45 Interval history: Significant incisional pain. No nausea. NG tube output is clearing in color. No fever Exam Vital Signs (past 8 hours): - 09/01/21 03:02 09/01/21 03:01 09/01/21 03:01 Temperature Pulse Rate 117 H Respiratory Rate 22 Blood Pressure 132/62 Pulse Oximetry 96 Oxygen Delivery Method Room Air 09/01/21 04:00 09/01/21 04:00 09/01/21 04:00 Temperature 98.0 F Pulse Rate 92 H Respiratory Rate 10 L Blood Pressure 117/64 Pulse Oximetry 91 Oxygen Delivery Method 09/01/21 05:00 09/01/21 05:00 09/01/21 06:00 Temperature Pulse Rate 89 Respiratory Rate 10 L Blood Pressure 125/60 131/62 Pulse Oximetry 93 Oxygen Delivery Method 09/01/21 06:00 09/01/21 07:00 09/01/21 07:00 Temperature Pulse Rate 95 H 86 Respiratory Rate 10 L 13 Blood Pressure 115/58 L Pulse Oximetry 93 97 Oxygen Delivery Method 09/01/21 08:00 09/01/21 08:00 Temperature Pulse Rate 86 Respiratory Rate 7 L Blood Pressure 123/58 L Pulse Oximetry 96 Oxygen Delivery Method Oxygen Delivery Method Room Air Oxygen Flow Rate 0 Narrative Exam Narrative: General adult male alert oriented no distress Chest nonlabored respirations Abdomen appropriately tender to palpation. Duodenal stump drain serosanguineous. NG tube clearing but residual coffee-ground material Objective Labs Result Diagrams: 09/01/21 09:00 09/01/21 03:00 Labs: Laboratory Results - last 24 hr 08/31/21 08/31/21 08/31/21 07:09 11:19 14:55 WBC RBC Hgb 8.6 L Hct 25.8 L MCV MCH MCHC RDW Plt Count Neut % (Auto) Lymph % (Auto) [place] % (Auto) Eos % (Auto) Baso % (Auto) Neut # (Auto) Lymph # (Auto) [place] # (Auto) Eos # (Auto) Baso # (Auto) Sodium Potassium Chloride Carbon Dioxide BUN Creatinine Estimated GFR BUN/Creatinine Ratio Glucose Calcium Phosphorus Magnesium Total Bilirubin AST ALT Alkaline Phosphatase Total Protein Albumin Globulin Albumin/Globulin Ratio Nasal Screen MRSA (PCR) Negative for mrsa Blood Type O Positive Antibody Screen Negative Crossmatch See Detail 08/31/21 09/01/21 09/01/21 21:15 03:00 03:00 WBC 18.2 H D RBC 2.92 L Hgb 9.5 L 9.0 L Hct 27.8 L 27.2 L MCV 92.8 D MCH 30.9 MCHC 33.3 RDW 15.2 H Plt Count 170 Neut % (Auto) 92.3 H Lymph % (Auto) 3.6 L [place] % (Auto) 4.0 Eos % (Auto) 0.0 L Baso % (Auto) 0.1 Neut # (Auto) 41007 H Lymph # (Auto) 600 L [place] # (Auto) 700 Eos # (Auto) 0 Baso # (Auto) 0 Sodium 134 L Potassium 4.8 Chloride 108 H Carbon Dioxide 25 BUN 22 H Creatinine 1.36 H Estimated GFR 60 BUN/Creatinine Ratio 16.2 Glucose 120 H D Calcium 7.6 L Phosphorus 4.5 H Magnesium 2.1 Total Bilirubin 0.5 AST 1487 H ALT 1673 H Alkaline Phosphatase 71 Total Protein 4.6 L Albumin 2.3 L Globulin 2.3 Albumin/Globulin Ratio 1.0 Nasal Screen MRSA (PCR) Blood Type Antibody Screen Crossmatch 09/01/21 09/01/21 09:00 09:55 WBC RBC Hgb 8.6 L Hct 25.3 L MCV MCH MCHC RDW Plt Count Neut % (Auto) Lymph % (Auto) [place] % (Auto) Eos % (Auto) Baso % (Auto) Neut # (Auto) Lymph # (Auto) [place] # (Auto) Eos # (Auto) Baso # (Auto) Sodium Potassium Chloride Carbon Dioxide BUN Creatinine Estimated GFR BUN/Creatinine Ratio Glucose Calcium Phosphorus Magnesium Total Bilirubin AST ALT 1503 H Alkaline Phosphatase Total Protein Albumin Globulin Albumin/Globulin Ratio Nasal Screen MRSA (PCR) Blood Type Antibody Screen Crossmatch [facility] Medical History CAD (coronary artery disease) Gastric ulcer Gluten enteropathy Hyperlipidemia Hypertension Surgical History History of nephrectomy Hx of CABG Family History Mother Stroke Father Stroke Social History household members: spouse Smoking Status: Current every day smoker Assessment & Plan Post-op Postoperative Procedures: Procedures Operation Date: 08/31/21 08:45 Actual Procedure Side Surgeon p Exploratory Laparotomy, Truncal vagotomy, Biliroth 2 Reconstruction Not Applicable Paolo Bradley MD Postoperative plan narrative: 61-year-old man postoperative day 1 status post antrectomy with Billroth II reconstruction and truncal vagotomy for a perforated gastric ulcer. -nasogastric tube low wall intermittent suction can remove tomorrow 0k case for sips today -acute hepatic ischemia AST and ALT 1500 total bilirubin 0.5. Suspect this is from global decreased perfusion yesterday. Trend liver enzymes -SCDs and prophylactic Lovenox for VT prophylaxis. -continue Protonix -continues Zosyn for biliary peritonitis secondary to gastric perforation
--- NOTE | 2021-09-01 12:40 | CM.DANOTE ---
DCP: Case received, EMR reviewed and met with patient. Introduced self and role. Was able to obtain information regarding patient's baseline activity level prior to hospitalization. DCP assessment completed with information currently available. Patient is a 61 year old male who admitted yesterday morning to the care of the hospitalist team. PCP: None currently Payer: None, currently, was given [employer] application. Patient came to the hospital via private vehicle secondary to having syncope, and large episode of bright red emesis. Patient had been here recently at the hospital and discharged on 08/29, for upper GI bleed. Patient had received 54 units of packed red blood cells, and had endoscopy noting recent bleeding gastric ulcer. He had surgery consult and was noted to have moderate hemodynamic instability. Recommendations are for patient to go back to OR for control of hemorrhage, and possible gastric resection. Patient had surgery yesterday. He currently has NG tube. Met with patient in his room. He is alert and oriented, laying in bed, NG tube in place. Confirmed with patient that he was just recently here. He resides with his spouse, Jessie, in [place], [place], but is [facility] here on 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 At his baseline he is independent. Confirmed that he did get [employer] application, his has it, he has no local insurance. He also confirmed, he does not have a provider, has been searching for one in his area. P: DCP to continue to follow for any needs. At this time, plan is for patient to go home when he is deemed medically stable. Chuyita Rojas RN/Unemployment Benefits Claims Taker Discharge Planning/Care Management Advanced directive, confirm from FAMILY Start: 08/31/21 16:37 Freq: Q24H Status: Active Protocol: Document 08/31/21 16:37 JLJulian (Rec: 08/31/21 17:23 [email or web address] [id number]) Advance Directive, confirm on record Time 17:23 Person contacted Jessie (spouse) Copy received No CM Discharge Assessment Start: 09/01/21 12:39 Freq: Status: Active Protocol: Document 09/01/21 12:39 (Rec: 09/01/21 12:40 [id number]) Discharge Planning Assessment Assigned Filter Worker Chuyita Rojas RN/Unemployment Benefits Claims Taker Advance Directives? No Advance Directives on File No History Provided By Patient,Family Member,Medical Record Prior Living Arrangements House Household Members spouse Type of transporation used prior to Drives own vehicle admit Independent with ADL's Yes Is patient alert and oriented? Yes Caregiver for Another No Comment Patient is from [place] visiting son on [place], has no primary care provider, is searching for one in his area, and no insurance. Discharge Plan Home Transportation Arrangement Transport via private vehicle, spouse/son Referrals Initiated None needed Whiteboard Updated in Patient Room with Yes name and ext. # of Filter Worker Review Status In Process Next Review Type Continued Stay Review
[2021-09-01] MEDS: FLUCONAZOLE 400 MG/200 ML PIGGYBACK 100 MG IV (13:51)
--- NOTE | 2021-09-01 14:07 | DIET.CONS ---
Dietary Consultation Note Admission Date: 08/31/2021 08:29 Assessment: 61y M admitted for gastric perforation requiring partial gastrectomy referred to nutrition for possible TPN reccs. Pt c NG to LIS, output slowing today. Per nursing no bowel tones yet. If BTs +, recc clear liquid diet c high pro additives mimicking diet for post-bariatrics. If BTs - and caponizer and hospitalist desire TPN nutrition support, recc slow initiation TPN via PICC as follows, as tolerated, monitoring for s/sx refeeding: Day 1: 1L Clinimix Day 2: 1.5L Clinimix Day 3: 2L Clinimix c 250mL IVFE TID Ht: 175.26 cm Wt: 66 kg BMI: 23.6 Last BM: 08/31/21 (08/31/21 16:00) MNA: 9 Angel Score: 17 Diet: 09/01/21 10:53 NPO Diet Diet Modifications: ok for sips of water and ice if NGT is functioning NPO Type: NPO except for Ice Chips Labs: RBC 2.92 X10^6/uL (4.5-5.9) L 09/01/21 03:00 Hgb 8.6 g/dL (13.5-17.5) L 09/01/21 09:00 Hct 25.3 % (41-53) L 09/01/21 09:00 Creatinine 1.36 mg/dL (0.66-1.25) H 09/01/21 03:00 Interventions: 1. Recc high pro clear and full liquid diet once return of bowel function. EER: 1800kcals (25kcal/kg), 80-90g PRO (1.2-1.4g/kg per post surgical) Monitoring/Evaluations: return of bowel function Electronically Signed by: Pallavi Diana 09/01/21 14:07 Clinical Dietitian [address] [id number]
--- NOTE | 2021-09-01 15:08 | PM.PN.1 ---
Exam Vital Signs (past 8 hours): - 09/01/21 08:00 09/01/21 08:00 09/01/21 09:00 Pulse Rate 86 Respiratory Rate 7 L Blood Pressure 123/58 L 120/59 L Pulse Oximetry 96 Oxygen Delivery Method 09/01/21 09:00 09/01/21 10:00 09/01/21 10:00 Pulse Rate 86 102 H Respiratory Rate 6 L 23 Blood Pressure 121/67 Pulse Oximetry 94 95 Oxygen Delivery Method 09/01/21 11:00 09/01/21 11:00 09/01/21 11:00 Pulse Rate 88 Respiratory Rate 15 Blood Pressure 124/58 L Pulse Oximetry 97 Oxygen Delivery Method Room Air 09/01/21 12:00 09/01/21 12:00 09/01/21 13:00 Pulse Rate 94 H Respiratory Rate 11 L Blood Pressure 120/66 139/61 Pulse Oximetry 96 Oxygen Delivery Method 09/01/21 13:00 Pulse Rate 92 H Respiratory Rate 12 Blood Pressure Pulse Oximetry 98 Oxygen Delivery Method Oxygen Delivery Method Room Air Oxygen Flow Rate 0 Objective Labs Result Diagrams: 09/01/21 09:00 09/01/21 03:00 Labs: Laboratory Results - last 24 hr 08/31/21 08/31/21 08/31/21 07:09 11:19 14:55 WBC RBC Hgb 8.6 L Hct 25.8 L MCV MCH MCHC RDW Plt Count Neut % (Auto) Lymph % (Auto) [place] % (Auto) Eos % (Auto) Baso % (Auto) Neut # (Auto) Lymph # (Auto) [place] # (Auto) Eos # (Auto) Baso # (Auto) Sodium Potassium Chloride Carbon Dioxide BUN Creatinine Estimated GFR BUN/Creatinine Ratio Glucose Calcium Phosphorus Magnesium Total Bilirubin AST ALT Alkaline Phosphatase Total Protein Albumin Globulin Albumin/Globulin Ratio Nasal Screen MRSA (PCR) Negative for mrsa Blood Type O Positive Antibody Screen Negative Crossmatch See Detail 08/31/21 09/01/21 09/01/21 21:15 03:00 03:00 WBC 18.2 H D RBC 2.92 L Hgb 9.5 L 9.0 L Hct 27.8 L 27.2 L MCV 92.8 D MCH 30.9 MCHC 33.3 RDW 15.2 H Plt Count 170 Neut % (Auto) 92.3 H Lymph % (Auto) 3.6 L [place] % (Auto) 4.0 Eos % (Auto) 0.0 L Baso % (Auto) 0.1 Neut # (Auto) 39971 H Lymph # (Auto) 600 L [place] # (Auto) 700 Eos # (Auto) 0 Baso # (Auto) 0 Sodium 134 L Potassium 4.8 Chloride 108 H Carbon Dioxide 25 BUN 22 H Creatinine 1.36 H Estimated GFR 60 BUN/Creatinine Ratio 16.2 Glucose 120 H D Calcium 7.6 L Phosphorus 4.5 H Magnesium 2.1 Total Bilirubin 0.5 AST 1487 H ALT 1673 H Alkaline Phosphatase 71 Total Protein 4.6 L Albumin 2.3 L Globulin 2.3 Albumin/Globulin Ratio 1.0 Nasal Screen MRSA (PCR) Blood Type Antibody Screen Crossmatch 09/01/21 09/01/21 09:00 09:55 WBC RBC Hgb 8.6 L Hct 25.3 L MCV MCH MCHC RDW Plt Count Neut % (Auto) Lymph % (Auto) [place] % (Auto) Eos % (Auto) Baso % (Auto) Neut # (Auto) Lymph # (Auto) [place] # (Auto) Eos # (Auto) Baso # (Auto) Sodium Potassium Chloride Carbon Dioxide BUN Creatinine Estimated GFR BUN/Creatinine Ratio Glucose Calcium Phosphorus Magnesium Total Bilirubin AST ALT 1503 H Alkaline Phosphatase Total Protein Albumin Globulin Albumin/Globulin Ratio Nasal Screen MRSA (PCR) Blood Type Antibody Screen Crossmatch [facility] Medical History CAD (coronary artery disease) Gastric ulcer Gluten enteropathy Hyperlipidemia Hypertension Surgical History History of nephrectomy Hx of CABG Family History Mother Stroke Father Stroke Social History household members: spouse Smoking Status: Current every day smoker Assessment & Plan Assessment & Plan narrative: Acute upper GI bleeding perforated gastric ulcer ?-?secondary to perforated gastric ulcer ?- status post antrectomy with Billroth II reconstruction and truncal vagotomy for a perforated gastric ulcer. - surgery on board - continue close monitoring -continue IV zosyn per surgery recs Acute blood loss anemia secondary to GI bleed -s/p 4 units PRBC-CBC daily -CBC daily Acute hepatic ischemia -trend LFTs Acute ischemia troponin level improved -continue telemetry monitoring Hyponatremia ?-improved from 131 to 134 - BMP daily DORIAN on Chronic kidney disease stage 3 - secondary to prerenal azotemia with GI bleeding -avoid nephrotoxics -BMP daily Hyperlipidemia. -restart statin when PO intake possible Hypertension ?- continue close monitoring - prn meds for SBP>170 DVT prophylaxis: SCD Disposition: depends on clinical course Time Spent With Patient Critical Care time: I spent a total of [] minutes of critical care time on this patient's care today; this time is exclusive of procedural time.
--- NOTE | 2021-09-01 15:11 | OT.IP.EVAL ---
Current Diagnoses Gastrointestinal hemorrhage, unspecified (08/31/21) Surgery Performed Operation Date: 08/31/21 08:45 Actual Procedures p Exploratory Laparotomy, Truncal vagotomy, Biliroth 2 Reconstruction(Not Applicable) - Paolo Bradley MD Past Medical History (Last Reviewed 08/31/21 @ 14:57 by Norman Bill DO) CAD (coronary artery disease) Gastric ulcer Gluten enteropathy Hyperlipidemia Hypertension Surgical History (Last Reviewed 08/31/21 @ 14:57 by Norman Bill DO) History of nephrectomy Hx of CABG Occupational Therapy Inpatient Evaluation/Re-Eval M1 PT/OT-IP Prior Functional Status Start: 09/01/21 15:15 Freq: NEEDED Status: Active Protocol: Document 09/01/21 15:16 CGR (Rec: 09/01/21 15:38 R [id number]) Medical Review Prior Functional Status Medical History Reviewed Yes Communication Pt is an effective verbal communicator. Mobility and Gait Pt was IND at baseline without AD. Activities of Daily Living and IADL's Pt was IND in all ADLs and IADLs. Social History Household Members spouse Living Arrangements House Number of Floors (Floors) Two Floors Number of Stairs To Enter/Railing? 2 steps to enter without railing. Pt can stay on the data entry of the home. Home Environment Standard Height Toilet,Walk in Shower,Tub/Shower Employment Status Retired Additional Social History Comment Pt is visiting his son in the area and is from [place], [place]. Information above is for the son's home. M2 OT-IP Current Condition Start: 09/01/21 15:15 Freq: Status: Active Protocol: Document 09/01/21 15:16 CGR (Rec: 09/01/21 15:38 CGR [id number]) Occupational Therapy Current Condition Current Condition Evaluation Date 09/01/21 Treatment Diagnosis ex lap for perforated gastric ulcer. Diagnosis Onset Date 08/31/21 M3 OT- IP Subjective and Pain Start: 09/01/21 15:15 Freq: Status: Active Protocol: Document 09/01/21 15:16 CGR (Rec: 09/01/21 15:38 R [id number]) OT- Subjective Occupational Therapy Visit Type Type Initial Evaluation Visit Start Time 14:34 Visit Stop Time 15:12 Total Visit Minutes 38 Notes Pt and nursing agreeable to pt getting up to chair. OT Pain Assessment Pain When Pain Assessed At Rest Pain Present Pain Present Pain Reported Location abdomen Intensity 8 Scale Used Numeric (0 - 10) Management Techniques Modification of Treatment,Re- positioning M4 OT- IP ADL's Start: 09/01/21 15:15 Freq: Status: Active Protocol: Document 09/01/21 15:16 CGR (Rec: 09/01/21 15:38 R [id number]) OT [id number] General Evaluation Self-Feeding Ability Independent Areas Needing Assistance Bringing Utensil to Mouth, Drinking From Cup/Glass Comments OT Self-Feeding Comments Pt was able to use swabs for wetting mouth without difficulty. OT ADL-Grooming Comments OT Grooming Comments not performed OT ADL-Oral Care Comments Oral Care Comments not performed OT ADL-Dressing General Eval Lower Body Dressing Ability Total Assistance Areas Needing Assistance Socks OT ADL-Toileting Comments OT Toileting Comments not performed OT ADL-Bathing Comments OT Bathing Comments not performed M5 OT- IP IADL's Start: 09/01/21 15:15 Freq: Status: Active Protocol: Document 09/01/21 15:16 CGR (Rec: 09/01/21 15:38 R [id number]) OT-Instrumental Activities of Daily Living Deficits IADL Deficits Identified No Deficits Home Safety Awareness Awareness of Need for Assistance at Home Good Awareness Ability to Problem Solve Emergency Able to Problem Solve Situations Medication Management Medication Management No Deficits Identified Money Management Money Management No Deficits Identified Meal Preparation Meal Preparation Caregiver Provides Assist Cleaning Manager Cleaning Manager Caregiver Provides Assist Driving Driving Caregiver Provides Assist Driving Comments Pt states that he does drive but his will do all driving. M6 OT- IP Functional Cognition Start: 09/01/21 15:15 Freq: Status: Active Protocol: Document 09/01/21 15:16 CGR (Rec: 09/01/21 15:38 R [id number]) Cognitive Factors Limiting Selfcare Function Cognitive Ability Level of Alertness Alert Patient Orientation Name,Age,Birthday,Month,Date, Year,Day of Week,Place, Situation Attention Span Ability Capable of Focused Attention, Capable of Sustained Attention Ability to Follow Commands Able to Follow Multi-Step Commands OT- Vision and Hearing OT- Hearing Assessment OT- Hearing Assessment WFL OT- Vision Assessment Visual Acuity Glasses For Reading Visual Attentiveness WFL Occular Pursuits WFL Visual Convergence WFL M7 OT- IP Mobility and Balance Start: 09/01/21 15:15 Freq: Status: Active Protocol: Document 09/01/21 15:16 CGR (Rec: 09/01/21 15:38 CGR [id number]) OT- Bed Mobility Assessment Rolling Type of Rolling Log Rolling,Roll to Left Level of Assistance Contact Guard Assistance Supine to Sit Supine to Sit Assist Minimal Assistance Scooting Scooting to Edge of Bed Contact Guard Assistance OT-Transfer Assessment Sit to and From Stand Sit to and from Stand Minimal Assistance Transfers Transfer Ability Minimal Assistance Technique Transfer Destination Bed,Chair Transfer Technique Stand Step Pivot Devices Transfer Assistive Devices Gait Belt,Front Wheeled Walker Comments Mobility Comments Pt declined gait belt on chest d/t past hx of OHS. Pt needed min a for mobility to chair and use of the walker. OT- Balance Assessment Sitting Balance and Reactions Static Sitting Balance Ability Good Dynamic Sitting Balance Ability Fair M8 OT- IP Objective Assessments Start: 09/01/21 15:15 Freq: Status: Active Protocol: Document 09/01/21 15:16 CGR (Rec: 09/01/21 15:38 CGR [id number]) OT Gross Range of Motion Upper Extremity Range of Motion Assessment Within Functional Limits OT Strength Upper Extremity Strength Assessment Within Functional Limits Comments Strength Comments 4+/5 OT- Coordination Assessment Upper Extremity Finger to Nose Test Within Functional Limits Finger Tapping Test Within Functional Limits OT-Muscle Tone Assessment Muscle Tone WNL Yes OT Sensation Assessment Edema Edema Absent M9 OT- IP Assessment and Plan Start: 09/01/21 15:15 Freq: Status: Active Protocol: Document 09/01/21 15:16 CGR (Rec: 09/01/21 15:38 CGR [id number]) OT Summary Assessment and Plan Potential Rehabilitation Potential Excellent Analytic Complexity at Evaluation Low Summary OT Impairments Pain,Balance,Functional Mobility,Grooming,Dressing, Toileting,Bathing,Toilet Transfers,Shower Transfers, Activity Tolerance Progress Towards Goals Slow Progress due to Pain,Slow Progress due to Medical Issues Assessment Summary Pt presents as a low complexity evaluation s/p admit for GI bleed requiring ex lap. Pt currently with multiple lines and 8/10 pain score. Pt needed min a for transfer to chair and pain medication just prior to transfer. Pt will benefit from continued therapy services and is likely to progress quickly. Recommend plan for return home with family support. DME needs to be assessed closer to date of discharge. Goals Grooming Goal Independent Dressing Goal Independent Toileting Goal Independent Bathing Goal Independent Toilet Transfer Goal Independent Shower Transfer Goal Independent Days to Meet Goals 10 Frequency of Treatment Frequency Of Treatment Once a Day Treatment Plan OT Treatment Plan ADL Training,Functional Mobility,Patient/Family Education,Discharge Planning Other Treatment Recommendations and Next ADLs seated vs standing Treatment Focus depending on progress. Discharge Recommendations OT Discharge Recommendations Home with Assistance Home Equipment Needs TBD Transportation Needs at Discharge Private Vehicle
--- NOTE | 2021-09-01 15:54 | PT.IIE ---
Current Diagnoses Gastrointestinal hemorrhage, unspecified (08/31/21) Surgery Performed Operation Date: 08/31/21 08:45 Actual Procedures p Exploratory Laparotomy, Truncal vagotomy, Biliroth 2 Reconstruction(Not Applicable) - Paolo Bradley MD Surgical History (Last Reviewed 08/31/21 @ 14:57 by Norman Bill DO) History of nephrectomy Hx of CABG Medical History (Last Reviewed 08/31/21 @ 14:57 by Norman Bill DO) CAD (coronary artery disease) Gastric ulcer Gluten enteropathy Hyperlipidemia Hypertension Physical Therapy Inpatient Evaluation/Re-Eval M1 PT/OT-IP Prior Functional Status Start: 09/01/21 17:59 Freq: NEEDED Status: Active Protocol: Document 09/01/21 15:54 AB (Rec: 09/01/21 18:14 AB [id number]) Medical Review Prior Functional Status Medical History Reviewed Yes Communication able to make needs known Mobility and Gait Pt was IND at baseline without AD. Activities of Daily Living and IADL's Pt was IND in all ADLs and IADLs. Social History Household Members spouse Living Arrangements House Number of Floors (Floors) Two Floors Number of Stairs To Enter/Railing? 1 step without rails to enter from the garage Home Environment Standard Height Toilet,Walk in Shower,Tub/Shower Employment Status Retired Additional Social History Comment Pt is visiting his son in the area and is from [place], [place]. Information above is for the son's home. spouse stated that her son can borrow a FWW from the [employer] M2 PT-IP Current Condition Start: 09/01/21 17:59 Freq: NEEDED Status: Active Protocol: Document 09/01/21 15:54 AB (Rec: 09/01/21 18:14 AB [id number]) Physical Therapy Current Condition Current Condition Evaluation Date 09/01/21 Treatment Diagnosis GI bleed s/p ex lap; difficulty in walking Onset Date 08/31/21 M3 PT-IP Subjective Start: 09/01/21 17:59 Freq: NEEDED Status: Active Protocol: Document 09/01/21 15:54 AB (Rec: 09/01/21 18:14 AB [id number]) Subjective Physical Therapy Visit Type Type Initial Evaluation Visit Start Time 15:54 Visit Stop Time 16:25 Total Visit Minutes 31 Number of SILICATOR Visits 0 Physical Therapy Visit Comments Patient Comments agreeable to do PT Therapy Pain Assessment Pain When Pain Assessed At Rest Pain Present Pain Present Pain Reported Location abdomen Intensity 2 Scale Used Numeric (0 - 10) Pain Management Techniques Modification of Treatment,Re- positioning,Timing of Activity with Medications M4 PT-IP Mobility and Gait Start: 09/01/21 17:59 Freq: NEEDED Status: Active Protocol: Document 09/01/21 15:54 AB (Rec: 09/01/21 18:14 AB [id number]) PT-Bed Mobility Assessment Rolling Type of Rolling Log Rolling Level of Assist Standby Assistance Sit to Supine Sit to Supine Standby Assistance PT-Transfer Assessment Sit to and From Stand Sit to and from Stand Standby Assistance,1 Person Assistance,Use of Upper Extremities Equipment Transfer Assistive Device Gait Belt,Front Wheeled Walker Orthotic/Prosthetic Devices or Brace: No Transfers Transfer Destination Bed Transfer Technique Stand Step Pivot Transfer Ability Level of Assist Standby Assistance,1 Person Assistance,Use of Upper Extremities Comments Mobility Comments pt sitting on chair. spouse in room. agreed to do PT. completed sit to stand SBA and ambulated ~ 5 ft forward and then backwards x 2 sets (20ft tota) SBA using FWW. limited ambulation due to NG tube attachment and tele. pt sat on chair and rested. pt requested to go back to bed. completed sit to stand SBA and step transfer to bed using FWW SBA. completed log roll sit to supine SBA. positioned pt in bed. call light and table placed within reach. Gait Assessment Gait Gait Assistance Required: Standby Assistance Distance (Feet) 20 Able to Maintain Weight Bearing Status Yes During Gait Assistive Devices Assistive Device Gait Belt,Front Wheeled Walker Orthotic/Prosthetic Devices or Brace: No Gait Deviations General Gait Pattern Decreased Stride Length, Decreased Feet Clearance Factors Limiting Gait Function Factors Limiting Gait Function Decreased Activity Tolerance, Decreased Strength,Pain PT-Balance Assessment Sitting Balance and Reactions Static Sitting Balance Ability Normal Dynamic Sitting Balance Ability Good Standing Balance and Reactions Static Standing Balance Ability Good Dynamic Standing Balance Ability Fair Device Used FWW M5 PT-IP Objective Assessments Start: 09/01/21 17:59 Freq: NEEDED Status: Active Protocol: Document 09/01/21 15:54 AB (Rec: 09/01/21 18:14 AB [id number]) Orientation Orientation/Cognition Level of Alertness Alert Orientation Name,Age,Birthday,Month,Date, Year,Day of Week,Place, Situation Language Function Ability No Deficits Noted Safety Awareness Understands Safety Issues Memory Description No Deficits Noted Gross Range of Motion Lower Extremity ROM Assessment Within Functional Limits Strength Lower Extremity Strength Assessment Within Functional Limits Coordination Assessment Gross Coordination Gross Coordination WNL Sensation Assessment Sensation Gross Sensation WNL Muscle Tone Muscle Tone WNL Yes M6 PT-IP Treatment Start: 09/01/21 17:59 Freq: NEEDED Status: Active Protocol: Document 09/01/21 15:54 AB (Rec: 09/01/21 18:14 AB [id number]) Physical Therapy Treatment Education Education Provided Precautions,Safety M7 PT-IP Assessment and Plan Start: 09/01/21 17:59 Freq: NEEDED Status: Active Protocol: Document 09/01/21 15:54 AB (Rec: 09/01/21 18:14 AB [id number]) PT Summary Assessment and Plan Potential Rehabilitation Potential Good Status of Condition at Evaluation Stable Summary Impairments Pain,ROM,Strength,Balance, Coordination,Sensation,Tone, Cognition,Bed Mobility, Transfers,Gait,Activity Tolerance Assessment Summary pt requiring SBA with mobility using FWW and plans to go home to his son's house and spouse will be able to assist pt. will continue to assess progress. Goals Bed Mobility Goal Independent Transfer Goal Independent,Front Wheeled Walker Gait Goal Independent,Front Wheel Walker Gait Distance 300 Other Goals improve transfers and ambulation without AD ~ 250 ft mod I up/down 1 step mod I Days to Meet Goals 10 Frequency of Treatment Frequency Of Treatment Once a Day Treatment Plan Physical Therapy Treatment Plan Bed Mobility Training,Transfer Training,Gait Training, Therapeutic Exercise,Balance Retraining,Post Op Education, Discharge Planning,Hot or Cold Pack,Neuromuscular Re-ed, Coordination Retraining,Manual Therapy Precautions Abdominal Surgery Precautions Log Roll,Lifting Restrictions, Gait Belt above Incisional Area Recommendations To Nursing Amount of Assist Needed 1 Person Assist Discharge Recommendations PT Discharge Recommendations Home with Assistance Equipment Needed for Home Before FWW if not safe without AD Discharge
--- NOTE | 2021-09-01 20:23 | P.ICUMDRN_ITS ---
- Date Patient Seen: 09/01/21 :: This patient was seen via real time interactive two-way audiovisual telecommunic ation. Note: no new complaints since am rounds ALT 1500, slightly better mildly tachycardia, adequate urine output may consider a bolus of ivf, if tachycardia persists
[2021-09-02] VITALS (14 sets, daily range): BP systolic 124–158; BP diastolic 58–76; PULSE 89–123; RESP 10–23; TEMP 36.8–38.2; O2SAT 90–97
[2021-09-02] MEDS: HYDROMORPHONE 2 MG INJ 4 MG IV ×7 (01:11→23:33)
--- NOTE | 2021-09-02 04:41 | PC.NURSE ---
0400- Patient has slept some tonight Pain medication every 3-5hr. Heart rate elevates to 120's with any activity. Using IS. Low grade temp 99.5 Patient states he is feeling better and pain is more controlled.
[2021-09-02] MEDS: PIPERACILLIN/TAZO 3.375 GM in SODIUM CHLORIDE 0.9% 100 ML IV ×3 (05:14→21:10)
[2021-09-02] MEDS: DEXTROSE 5%-0.45NS W/KCL 20MEQ 1,000 ML 50 MEQ IV (05:15)
[2021-09-02 05:21] LABS: Add Manual Diff / Slide Review NO; Basophils Absolute Auto 0 /uL (0-100); Basophils Percent Auto 0.1 % (0-2); Eosinophils Absolute Auto 0 /uL (0-450); Eosinophils Percent Auto 0.2 % (2-4); Hemoglobin 8.4 g/dL (13.5-17.5); Lymphocytes Absolute Auto 900 /uL (1100-4500); Mean Corpuscular HGB Conc 33.4 % (30-36); Mean Corpuscular Hemoglobin 31.4 PG (26-34); Monocytes Absolute Auto 1000 /uL (0-900); Monocytes Percent Auto 5.6 % (3-14); Neutrophils Absolute Auto 15500 /uL (1500-7000); Neutrophils Percent Auto 89.1 % (50-75); Platelet Count 187 X10^3/uL (150-400); Red Blood Cell Count 2.66 X10^6/uL (4.5-5.9); Red Cell Distribution Width 15.6 % (11.6-14.8); White Blood Cell Count 17.4 X10^3/uL (4.5-11.0)
[2021-09-02 06:41] LABS: BUN Creatinine Ratio 14.7 (6-22); Blood Urea Nitrogen 21 mg/dL (9-20); Calcium 7.6 mg/dL (8.4-10.2); Carbon Dioxide 26 mmol/L (22-32); Chloride 106 mmol/L (98-107); Estimated Glomerular Filt Rate 56 mL/min (>60); Glucose 118 mg/dL (80-110); Potassium 4.7 mmol/L (3.4-5.1); Sodium 136 mmol/L (137-145)
[2021-09-02 06:42] LABS: Alanine Aminotransferase 1022 IU/L (<50); Albumin 2.5 g/dL (3.5-5.0); Albumin Globulin Ratio 0.9 (1.0-2.8); Alkaline Phosphatase 78 U/L (38-126); Aspartate Aminotransferase 335 IU/L (17-59); Bilirubin Total 0.8 mg/dL (0.2-1.3); Globulin 2.7 g/dL (1.7-4.1); HEMOLYSIS < 15 (0-50); Magnesium 2.3 mg/dL (1.6-2.3); Phosphorous 3.6 mg/dL (2.3-3.7); Total Protein 5.2 g/dL (6.3-8.2)
[2021-09-02] MEDS: fentaNYL 12 MCG/PATCH TOP (08:56)
[2021-09-02] MEDS: PANTOPRAZOLE 40 MG VIAL IV ×2 (08:56→21:10)
--- NOTE | 2021-09-02 11:30 | PT.IPTN ---
Current Diagnoses Gastrointestinal hemorrhage, unspecified (08/31/21) Surgery Performed Operation Date: 08/31/21 08:45 Actual Procedures p Exploratory Laparotomy, Truncal vagotomy, Biliroth 2 Reconstruction(Not Applicable) - Paolo Bradley MD Physical Therapy Treatment Note M2 PT-IP Current Condition Start: 09/01/21 17:59 Freq: NEEDED Status: Active Protocol: Document 09/01/21 15:54 AB (Rec: 09/01/21 18:14 AB [id number]) Physical Therapy Current Condition Current Condition Evaluation Date 09/01/21 Treatment Diagnosis GI bleed s/p ex lap; difficulty in walking Onset Date 08/31/21 M3 PT-IP Subjective Start: 09/01/21 17:59 Freq: NEEDED Status: Active Protocol: Document 09/02/21 11:31 NBM (Rec: 09/02/21 11:56 NB [id number]) Subjective Physical Therapy Visit Type Type Treatment Note Visit Start Time 11:18 Visit Stop Time 11:30 Total Visit Minutes 12 Number of TRANSPORTATION MAINTENANCE WORKER Visits 1 Physical Therapy Visit Comments Patient Comments agreeable to do PT Therapy Pain Assessment Pain When Pain Assessed After Treatment Pain Present Pain Present Denied Pain M4 PT-IP Mobility and Gait Start: 09/01/21 17:59 Freq: NEEDED Status: Active Protocol: Document 09/02/21 11:31 NBM (Rec: 09/02/21 11:56 NBM [id number]) PT-Transfer Assessment Sit to and From Stand Sit to and from Stand Standby Assistance,1 Person Assistance,Use of Upper Extremities Equipment Transfer Assistive Device Front Wheeled Walker Transfers Transfer Destination Chair Transfer Technique Stand Step Pivot Transfer Ability Level of Assist Standby Assistance,1 Person Assistance,Use of Upper Extremities Comments Mobility Comments Pt standing w/ FWW and agreeable to PT. NG tube removed today and telemetry box used. Pt refused to don mask to ambulate outside of room and refused gait belt. Ambulated in room ~20' CGA w/ FWW. VC for slower pace, closer walker, no lifting walker, and upright posture. Standing marching w/ FWW 1 x 10 ea. Pt sat on chair x 2 w/ good hand placement - controlled descent improved w/ vc. Sit<>Stand SBA step transfer to chair w/FWW SBA. Ankle pumps 1 x 8 rafael. Pt left w/ call light and all needs placed within reach. Gait Assessment Gait Gait Assistance Required: Standby Assistance,Contact Guard Assist Distance (Feet) 20 Able to Maintain Weight Bearing Status Yes During Gait Assistive Devices Assistive Device Gait Belt,Front Wheeled Walker Orthotic/Prosthetic Devices or Brace: No Gait Deviations General Gait Pattern Decreased Stride Length, Decreased Feet Clearance Factors Limiting Gait Function Factors Limiting Gait Function Decreased Activity Tolerance, Decreased Strength,Pain PT-Balance Assessment Sitting Balance and Reactions Static Sitting Balance Ability Normal Dynamic Sitting Balance Ability Good Standing Balance and Reactions Static Standing Balance Ability Good Dynamic Standing Balance Ability Fair Device Used FWW M5 PT-IP Objective Assessments Start: 09/01/21 17:59 Freq: NEEDED Status: Active Protocol: Document 09/01/21 15:54 AB (Rec: 09/01/21 18:14 AB [email or web address]) Orientation Orientation/Cognition Level of Alertness Alert Orientation Name,Age,Birthday,Month,Date, Year,Day of Week,Place, Situation Language Function Ability No Deficits Noted Safety Awareness Understands Safety Issues Memory Description No Deficits Noted Gross Range of Motion Lower Extremity ROM Assessment Within Functional Limits Strength Lower Extremity Strength Assessment Within Functional Limits Coordination Assessment Gross Coordination Gross Coordination WNL Sensation Assessment Sensation Gross Sensation WNL Muscle Tone Muscle Tone WNL Yes M6 PT-IP Treatment Start: 09/01/21 17:59 Freq: NEEDED Status: Active Protocol: Document 09/02/21 11:31 NBM (Rec: 09/02/21 11:56 [facility] [id number]) Physical Therapy Treatment Education Education Provided Precautions,Safety M7 PT-IP Assessment and Plan Start: 09/01/21 17:59 Freq: NEEDED Status: Active Protocol: Document 09/02/21 11:31 NBM (Rec: 09/02/21 11:56 [facility] [id number]) PT Summary Assessment and Plan Potential Rehabilitation Potential Good Status of Condition at Evaluation Stable Summary Impairments Pain,ROM,Strength,Balance, Coordination,Sensation,Tone, Cognition,Bed Mobility, Transfers,Gait,Activity Tolerance Assessment Summary Pt requiring SBA with mobility using FWW - extensive vc for FWW management. Pt refused to don mask to ambulate outside of room and refused gait belt. Pt plans to go home to his son's house and spouse will be able to assist pt. Spouse was present throughout session. Will continue to assess progress. Goals Bed Mobility Goal Independent Transfer Goal Independent,Front Wheeled Walker Gait Goal Independent,Front Wheel Walker Gait Distance 300 Other Goals improve transfers and ambulation without AD ~ 250 ft mod I up/down 1 step mod I Days to Meet Goals 10 Frequency of Treatment Frequency Of Treatment Once a Day Treatment Plan Physical Therapy Treatment Plan Bed Mobility Training,Transfer Training,Gait Training, Therapeutic Exercise,Balance Retraining,Post Op Education, Discharge Planning,Hot or Cold Pack,Neuromuscular Re-ed, Coordination Retraining,Manual Therapy Precautions Abdominal Surgery Precautions Log Roll,Lifting Restrictions, Gait Belt above Incisional Area Recommendations To Nursing Amount of Assist Needed 1 Person Assist Discharge Recommendations PT Discharge Recommendations Home with Assistance Equipment Needed for Home Before FWW if not safe without AD Discharge
--- NOTE | 2021-09-02 12:00 | OT.IPNOTE ---
Checked on pt for OT treatment and pt states would like to eat first and shower.
--- NOTE | 2021-09-02 12:01 | OT.IPNOTE ---
Pt wanting to wait until after lunch to shower for OT treatment today.
--- NOTE | 2021-09-02 12:36 | P.PN_ITS ---
Subjective Subjective Date Patient Seen: 09/02/21 Time Patient Seen: 12:36 Interval history: No acute events. Incision pain. + Flatus Exam Vital Signs (past 8 hours): - 09/02/21 05:00 09/02/21 05:00 09/02/21 06:00 Temperature 100.8 F H Pulse Rate 104 H Respiratory Rate 11 L Blood Pressure 144/65 H 134/61 Pulse Oximetry 95 Oxygen Delivery Method 09/02/21 06:00 09/02/21 07:00 09/02/21 07:00 Temperature Pulse Rate 102 H 119 H Respiratory Rate 11 L 15 Blood Pressure 150/70 H Pulse Oximetry 90 L 91 Oxygen Delivery Method 09/02/21 08:00 09/02/21 08:00 09/02/21 08:00 Temperature Pulse Rate 121 H Respiratory Rate 23 Blood Pressure 156/72 H Pulse Oximetry 95 Oxygen Delivery Method Nasal Cannula 09/02/21 09:00 09/02/21 10:00 09/02/21 10:00 Temperature Pulse Rate 123 H 108 H Respiratory Rate 20 14 Blood Pressure 124/58 L Pulse Oximetry Oxygen Delivery Method 09/02/21 11:00 09/02/21 11:00 Temperature Pulse Rate 104 H Respiratory Rate 10 L Blood Pressure 131/62 Pulse Oximetry Oxygen Delivery Method Oxygen Delivery Method Nasal Cannula Oxygen Flow Rate 1 Narrative Exam Narrative: Gen-Adult man alert and oriented Chest-Non labored Abdomen-Soft, appropriately tender to palpation. Incision CDI. Drain SS Objective Labs Result Diagrams: 09/02/21 04:33 09/02/21 04:33 Labs: Laboratory Results - last 24 hr 09/02/21 09/02/21 04:33 04:33 WBC 17.4 H RBC 2.66 L Hgb 8.4 L Hct 25.0 L MCV 94.0 MCH 31.4 MCHC 33.4 RDW 15.6 H Plt Count 187 Neut % (Auto) 89.1 H Lymph % (Auto) 5.0 L [place] % (Auto) 5.6 Eos % (Auto) 0.2 L Baso % (Auto) 0.1 Neut # (Auto) 23289 H Lymph # (Auto) 900 L [place] # (Auto) 1000 H Eos # (Auto) 0 Baso # (Auto) 0 Sodium 136 L Potassium 4.7 Chloride 106 Carbon Dioxide 26 BUN 21 H Creatinine 1.43 H Estimated GFR 56 L BUN/Creatinine Ratio 14.7 Glucose 118 H Calcium 7.6 L Phosphorus 3.6 Magnesium 2.3 Total Bilirubin 0.8 AST 335 H ALT 1022 H Alkaline Phosphatase 78 Total Protein 5.2 L Albumin 2.5 L Globulin 2.7 Albumin/Globulin Ratio 0.9 L PFSH Medical History CAD (coronary artery disease) Gastric ulcer Gluten enteropathy Hyperlipidemia Hypertension Surgical History History of nephrectomy Hx of CABG Family History Mother Stroke Father Stroke Social History household members: spouse Smoking Status: Current every day smoker Assessment & Plan Post-op Postoperative Procedures: Procedures Operation Date: 08/31/21 08:45 Actual Procedure Side Surgeon p Exploratory Laparotomy, Truncal vagotomy, Biliroth 2 Reconstruction Not Applicable Paolo Bradley MD Postoperative status narrative: 61 y.o man POD 2 SP antrectomy vagotomy and b illroth II reconstruction. Doing well. -Remove NGT -Clears -DC De Jesus -Continue Zosyn for total of 5 days -DC IVF -Trend LFT for another day transaminitis is improving
--- NOTE | 2021-09-02 13:05 | OT.IPNOTE ---
Attempted to see pt a couple times but still having lunch. Pt states now feeling too tired to shower and states wanting to get back to bed after he eats. Pt aware to call nursing if he decides to take a shower later. Nursing notified of pt's request. No charge
--- NOTE | 2021-09-02 15:13 | PM.PN.1 ---
Subjective Subjective Interval history: feels better NG out Exam Vital Signs (past 8 hours): - 09/02/21 08:00 09/02/21 08:00 09/02/21 08:00 Pulse Rate 121 H Respiratory Rate 23 Blood Pressure 156/72 H Pulse Oximetry 95 Oxygen Delivery Method Nasal Cannula 09/02/21 09:00 09/02/21 10:00 09/02/21 10:00 Pulse Rate 123 H 108 H Respiratory Rate 20 14 Blood Pressure 124/58 L Pulse Oximetry Oxygen Delivery Method 09/02/21 11:00 09/02/21 11:00 Pulse Rate 104 H Respiratory Rate 10 L Blood Pressure 131/62 Pulse Oximetry Oxygen Delivery Method Oxygen Delivery Method Nasal Cannula Oxygen Flow Rate 1 Const General: cooperative and well developed Orientation: alert, awake and oriented x3 HENMT Head: normal to inspection Ears: external ears normal Mouth: oral mucosae normal Eyes Pupils: PERRL EOM: EOM intact bilaterally Neck Neck: normal visual inspection and full ROM Resp Effort & Inspection: normal respiratory effort Auscultation: clear to auscultation bilaterally Cardio Rate: regular rate Rhythm: regular rhythm GI Palpation: soft and no hepatosplenomegaly Auscultation: normal bowel sounds Skin General: no rashes or lesions noted Neuro General: patient alert, patient awake, patient oriented x3, moves all extremities and no focal motor deficits Speech: speech normal Extrem General: normal to inspection, full ROM and no pedal edema Psych Appearance: grossly normal Objective Labs Result Diagrams: 09/02/21 04:33 09/02/21 04:33 Labs: Laboratory Results - last 24 hr 09/02/21 09/02/21 04:33 04:33 WBC 17.4 H RBC 2.66 L Hgb 8.4 L Hct 25.0 L MCV 94.0 MCH 31.4 MCHC 33.4 RDW 15.6 H Plt Count 187 Neut % (Auto) 89.1 H Lymph % (Auto) 5.0 L [place] % (Auto) 5.6 Eos % (Auto) 0.2 L Baso % (Auto) 0.1 Neut # (Auto) 90365 H Lymph # (Auto) 900 L [place] # (Auto) 1000 H Eos # (Auto) 0 Baso # (Auto) 0 Sodium 136 L Potassium 4.7 Chloride 106 Carbon Dioxide 26 BUN 21 H Creatinine 1.43 H Estimated GFR 56 L BUN/Creatinine Ratio 14.7 Glucose 118 H Calcium 7.6 L Phosphorus 3.6 Magnesium 2.3 Total Bilirubin 0.8 AST 335 H ALT 1022 H Alkaline Phosphatase 78 Total Protein 5.2 L Albumin 2.5 L Globulin 2.7 Albumin/Globulin Ratio 0.9 L PFSH Medical History CAD (coronary artery disease) Gastric ulcer Gluten enteropathy Hyperlipidemia Hypertension Surgical History History of nephrectomy Hx of CABG Family History Mother Stroke Father Stroke Social History household members: spouse Smoking Status: Current every day smoker Assessment & Plan Assessment & Plan narrative: Acute upper GI bleeding perforated gastric ulcer ?-?secondary to perforated gastric ulcer ?- status post antrectomy with Billroth II reconstruction and truncal vagotomy for a perforated gastric ulcer. - surgery on board, removed NG - pt is downgraded to acute care - continue close monitoring - continue IV zosyn per surgery recs Acute blood loss anemia secondary to GI bleed -s/p 4 units PRBC HGB stable -CBC daily Acute hepatic ischemia -trend LFTs Acute ischemia troponin level improved -continue telemetry monitoring Hyponatremia ?-improved - BMP daily DORIAN on Chronic kidney disease stage 3 - secondary to prerenal azotemia with GI bleeding -avoid nephrotoxics -BMP daily Hypertension ?- continue close monitoring - prn meds for SBP>170 DVT prophylaxis: SCD Disposition: depends on clinical course Time Spent With Patient Critical Care time: I spent a total of [] minutes of critical care time on this patient's care today; this time is exclusive of procedural time.
[2021-09-03] VITALS (8 sets, daily range): BP systolic 123–167; BP diastolic 58–83; PULSE 100–122; RESP 16–23; TEMP 37.3–38; O2SAT 92–98
--- NOTE | 2021-09-03 03:51 | PC.NURSE ---
0345- Patient assisted up to the chair. Patient states he feels pretty good. Patient advised to call for assist to get out of the chair. Patient acknowledges understanding. Will monitor.
[2021-09-03] MEDS: PIPERACILLIN/TAZO 3.375 GM in SODIUM CHLORIDE 0.9% 100 ML IV ×3 (05:25→20:44)
[2021-09-03 05:57] LABS: Add Manual Diff / Slide Review NO; Basophils Absolute Auto 0 /uL (0-100); Basophils Percent Auto 0.1 % (0-2); Eosinophils Absolute Auto 200 /uL (0-450); Eosinophils Percent Auto 1.1 % (2-4); Hematocrit 24.8 % (41-53); Hemoglobin 8.3 g/dL (13.5-17.5); Lymphocytes Absolute Auto 700 /uL (1100-4500); Lymphocytes Percent Auto 3.7 % (25-40); Mean Corpuscular HGB Conc 33.4 % (30-36); Mean Corpuscular Volume 92.8 fL (80-100); Monocytes Absolute Auto 1100 /uL (0-900); Monocytes Percent Auto 5.4 % (3-14); Neutrophils Absolute Auto 18000 /uL (1500-7000); Neutrophils Percent Auto 89.7 % (50-75); Platelet Count 240 X10^3/uL (150-400); Red Blood Cell Count 2.67 X10^6/uL (4.5-5.9); Red Cell Distribution Width 15.6 % (11.6-14.8)
[2021-09-03 06:03] LABS: Alanine Aminotransferase 734 IU/L (<50); Albumin 2.8 g/dL (3.5-5.0); Alkaline Phosphatase 129 U/L (38-126); Aspartate Aminotransferase 136 IU/L (17-59); BUN Creatinine Ratio 12.4 (6-22); Bilirubin Total 1.2 mg/dL (0.2-1.3); Blood Urea Nitrogen 16 mg/dL (9-20); Calcium 7.7 mg/dL (8.4-10.2); Carbon Dioxide 27 mmol/L (22-32); Chloride 97 mmol/L (98-107); Estimated Glomerular Filt Rate > 60 mL/min (>60); Globulin 2.8 g/dL (1.7-4.1); Glucose 104 mg/dL (80-110); HEMOLYSIS < 15 (0-50); Magnesium 2.1 mg/dL (1.6-2.3); Phosphorous 2.6 mg/dL (2.3-3.7); Potassium 3.9 mmol/L (3.4-5.1); Sodium 130 mmol/L (137-145); Total Protein 5.6 g/dL (6.3-8.2)
[2021-09-03] MEDS: HYDROMORPHONE 1 MG INJ IV ×3 (06:59→14:48)
--- NOTE | 2021-09-03 09:14 | PT-IP ANOTE ---
Pt refusing PT today, c/o pain and fatigue. Nursing aware and confirms he has been up in room SBA. Will check back tomorrow.
[2021-09-03] MEDS: PANTOPRAZOLE 40 MG VIAL IV ×2 (09:17→20:44)
[2021-09-03] MEDS: HYDROMORPHONE 2 MG INJ 4 MG IV (09:17)
--- NOTE | 2021-09-03 10:52 | OT.IP.TRT ---
Current Diagnoses Gastrointestinal hemorrhage, unspecified (08/31/21) Surgery Performed Operation Date: 08/31/21 08:45 Actual Procedures p Exploratory Laparotomy, Truncal vagotomy, Biliroth 2 Reconstruction(Not Applicable) - Paolo Bradley MD Occupational Therapy Treatment Note M2 OT-IP Current Condition Start: 09/01/21 15:15 Freq: Status: Active Protocol: Document 09/01/21 15:16 CGR (Rec: 09/01/21 15:38 CGR [id number]) Occupational Therapy Current Condition Current Condition Evaluation Date 09/01/21 Treatment Diagnosis ex lap for perforated gastric ulcer. Diagnosis Onset Date 08/31/21 M3 OT- IP Subjective and Pain Start: 09/01/21 15:15 Freq: Status: Active Protocol: Document 09/03/21 12:04 CGR (Rec: 09/03/21 12:24 CGR [id number]) OT- Subjective Occupational Therapy Visit Type Type Progress Note Visit Start Time 10:19 Visit Stop Time 10:52 Total Visit Minutes 33 Notes pt requesting to shower. M4 OT- IP ADL's Start: 09/01/21 15:15 Freq: Status: Active Protocol: Document 09/03/21 12:04 CGR (Rec: 09/03/21 12:24 CGR [id number]) OT PQL-Cfgi-Thvqvoe General Evaluation Self-Feeding Ability Independent Comments OT Self-Feeding Comments drinking ensure OT ADL-Grooming General Evaluation Grooming Ability Independent Areas Needing Assistance Combing/Brushing Hair Comments OT Grooming Comments seated in chair after shower OT ADL-Oral Care Comments Oral Care Comments not performed OT ADL-Dressing General Eval Upper Body Dressing Ability Independent Lower Body Dressing Ability Moderate Assistance,Total Assistance Areas Needing Assistance Underpants/Brief,Socks Comments OT Dressing Comments mod assist for underwear and total assist for socks. OT ADL-Toileting Comments OT Toileting Comments not performed OT ADL-Bathing Bathing Type Bathing Type Shower General Evaluation Bathing Ability Standby Assistance Areas Needing Assistance Retrieving/Setting Up Items M5 OT- IP IADL's Start: 09/01/21 15:15 Freq: Status: Active Protocol: Document 09/01/21 15:16 CGR (Rec: 09/01/21 15:38 CGR [id number]) OT-Instrumental Activities of Daily Living Deficits IADL Deficits Identified No Deficits Home Safety Awareness Awareness of Need for Assistance at Home Good Awareness Ability to Problem Solve Emergency Able to Problem Solve Situations Medication Management Medication Management No Deficits Identified Money Management Money Management No Deficits Identified Meal Preparation Meal Preparation Caregiver Provides Assist Wafer Polishing Lead Worker Wafer Polishing Lead Worker Caregiver Provides Assist Driving Driving Caregiver Provides Assist Driving Comments Pt states that he does drive but his will do all driving. M6 OT- IP Functional Cognition Start: 09/01/21 15:15 Freq: Status: Active Protocol: Document 09/01/21 15:16 CGR (Rec: 09/01/21 15:38 R [id number]) Cognitive Factors Limiting Selfcare Function Cognitive Ability Level of Alertness Alert Patient Orientation Name,Age,Birthday,Month,Date, Year,Day of Week,Place, Situation Attention Span Ability Capable of Focused Attention, Capable of Sustained Attention Ability to Follow Commands Able to Follow Multi-Step Commands OT- Vision and Hearing OT- Hearing Assessment OT- Hearing Assessment WFL OT- Vision Assessment Visual Acuity Glasses For Reading Visual Attentiveness WFL Occular Pursuits WFL Visual Convergence WFL M7 OT- IP Mobility and Balance Start: 09/01/21 15:15 Freq: Status: Active Protocol: Document 09/03/21 12:04 CGR (Rec: 09/03/21 12:24 CGR [id number]) OT-Transfer Assessment Sit to and From Stand Sit to and from Stand Standby Assistance Transfers Transfer Ability Standby Assistance Technique Transfer Destination Bed,Chair,Shower Stall Transfer Technique Stand Step Pivot OT- Balance Assessment Sitting Balance and Reactions Static Sitting Balance Ability Good Dynamic Sitting Balance Ability Good M8 OT- IP Objective Assessments Start: 09/01/21 15:15 Freq: Status: Active Protocol: Document 09/01/21 15:16 CGR (Rec: 09/01/21 15:38 R [id number]) OT Gross Range of Motion Upper Extremity Range of Motion Assessment Within Functional Limits OT Strength Upper Extremity Strength Assessment Within Functional Limits Comments Strength Comments 4+/5 OT- Coordination Assessment Upper Extremity Finger to Nose Test Within Functional Limits Finger Tapping Test Within Functional Limits OT-Muscle Tone Assessment Muscle Tone WNL Yes OT Sensation Assessment Edema Edema Absent M9 OT- IP Assessment and Plan Start: 09/01/21 15:15 Freq: Status: Active Protocol: Document 09/03/21 12:04 CGR (Rec: 09/03/21 12:24 CGR [id number]) OT Summary Assessment and Plan Potential Rehabilitation Potential Excellent Analytic Complexity at Evaluation Low Summary OT Impairments Pain,Balance,Functional Mobility,Grooming,Dressing, Toileting,Bathing,Toilet Transfers,Shower Transfers, Activity Tolerance Progress Towards Goals Slow Progress due to Pain,Slow Progress due to Medical Issues Assessment Summary Pt presents as a low complexity evaluation s/p admit for GI bleed requiring ex lap. Pt participated in shower on this date and is progressing well now SBA with mobility. Pt will be safe for d/c home with family. Goals Grooming Goal Independent Dressing Goal Independent Toileting Goal Independent Bathing Goal Independent Toilet Transfer Goal Independent Shower Transfer Goal Independent Days to Meet Goals 10 Frequency of Treatment Frequency Of Treatment Once a Day Treatment Plan OT Treatment Plan ADL Training,Functional Mobility,Patient/Family Education,Discharge Planning Other Treatment Recommendations and Next LB dressing with abdominal Treatment Focus precautions. Discharge Recommendations OT Discharge Recommendations Home with Assistance Home Equipment Needs TBD Transportation Needs at Discharge Private Vehicle
--- NOTE | 2021-09-03 11:19 | PM.PN.1 ---
Subjective Subjective Interval history: no overnight issues, no new major complaints Exam Vital Signs (past 8 hours): - 09/03/21 04:00 09/03/21 07:21 09/03/21 08:00 Temperature 99.9 F H 99.3 F Pulse Rate 122 H 100 H Respiratory Rate 17 18 Blood Pressure 131/67 167/83 H Pulse Oximetry 95 95 94 Oxygen Delivery Method Room Air Oxygen Flow Rate 0 09/03/21 10:39 Temperature Pulse Rate Respiratory Rate Blood Pressure Pulse Oximetry Oxygen Delivery Method Room Air Oxygen Flow Rate Oxygen Delivery Method Room Air Oxygen Flow Rate 0 Const General: cooperative and well developed Orientation: alert, awake and oriented x3 HENMT Head: normal to inspection Ears: external ears normal Mouth: oral mucosae normal Eyes Pupils: PERRL EOM: EOM intact bilaterally Neck Neck: normal visual inspection and full ROM Resp Effort & Inspection: normal respiratory effort Auscultation: clear to auscultation bilaterally Cardio Rate: regular rate Rhythm: regular rhythm GI Palpation: soft and no hepatosplenomegaly Auscultation: normal bowel sounds Skin General: no rashes or lesions noted Neuro General: patient alert, patient awake, patient oriented x3, moves all extremities and no focal motor deficits Speech: speech normal Extrem General: normal to inspection, full ROM and no pedal edema Psych Appearance: grossly normal Objective Labs Result Diagrams: 09/03/21 05:05 09/03/21 05:05 Labs: Laboratory Results - last 24 hr 09/03/21 09/03/21 05:05 05:05 WBC 20.0 H RBC 2.67 L Hgb 8.3 L Hct 24.8 L MCV 92.8 MCH 31.0 MCHC 33.4 RDW 15.6 H Plt Count 240 Neut % (Auto) 89.7 H Lymph % (Auto) 3.7 L [place] % (Auto) 5.4 Eos % (Auto) 1.1 L Baso % (Auto) 0.1 Neut # (Auto) 11679 H Lymph # (Auto) 700 L [place] # (Auto) 1100 H Eos # (Auto) 200 Baso # (Auto) 0 Sodium 130 L Potassium 3.9 Chloride 97 L Carbon Dioxide 27 BUN 16 Creatinine 1.29 H Estimated GFR > 60 BUN/Creatinine Ratio 12.4 Glucose 104 Calcium 7.7 L Phosphorus 2.6 D Magnesium 2.1 Total Bilirubin 1.2 AST 136 H ALT 734 H Alkaline Phosphatase 129 H D Total Protein 5.6 L Albumin 2.8 L Globulin 2.8 Albumin/Globulin Ratio 1.0 PFSH Medical History CAD (coronary artery disease) Gastric ulcer Gluten enteropathy Hyperlipidemia Hypertension Surgical History History of nephrectomy Hx of CABG Family History Mother Stroke Father Stroke Social History household members: spouse Smoking Status: Current every day smoker Assessment & Plan Assessment & Plan narrative: Acute upper GI bleeding perforated gastric ulcer ?-?secondary to perforated gastric ulcer ?- status post antrectomy with Billroth II reconstruction and truncal vagotomy for a perforated gastric ulcer. - continue close monitoring - continue IV zosyn Leukocytosis worse today 20 vs 17 -continue IV zosyn - needs G positive coverage? Acute blood loss anemia secondary to GI bleed -s/p 4 units PRBC HGB stable 8.3 -CBC daily Acute hepatic ischemia -trend LFTs Acute ischemia troponin level improved -continue telemetry monitoring Hyponatremia ?-worse will stop D5 -start NS - BMP daily DORIAN on Chronic kidney disease stage 3 - secondary to prerenal azotemia with GI bleeding, improving cr/bun -avoid nephrotoxics -BMP daily Hypertension ?- continue close monitoring - prn meds for SBP>170 DVT prophylaxis: SCD Disposition: depends on clinical course Time Spent With Patient Critical Care time: I spent a total of [] minutes of critical care time on this patient's care today; this time is exclusive of procedural time.
--- NOTE | 2021-09-03 11:32 | P.PN_ITS ---
Subjective Subjective Date Patient Seen: 09/03/21 Time Patient Seen: 11:32 Interval history: S/p B-2 gastrectomy for large gastric ulcer. Tolerating regular diet. drain is serous Exam Vital Signs (past 8 hours): - 09/03/21 04:00 09/03/21 07:21 09/03/21 08:00 Temperature 99.9 F H 99.3 F Pulse Rate 122 H 100 H Respiratory Rate 17 18 Blood Pressure 131/67 167/83 H Pulse Oximetry 95 95 94 Oxygen Delivery Method Room Air Oxygen Flow Rate 0 09/03/21 10:39 Temperature Pulse Rate Respiratory Rate Blood Pressure Pulse Oximetry Oxygen Delivery Method Room Air Oxygen Flow Rate Oxygen Delivery Method Room Air Oxygen Flow Rate 0 Objective Labs Result Diagrams: 09/03/21 05:05 09/03/21 05:05 Labs: Laboratory Results - last 24 hr 09/03/21 09/03/21 05:05 05:05 WBC 20.0 H RBC 2.67 L Hgb 8.3 L Hct 24.8 L MCV 92.8 MCH 31.0 MCHC 33.4 RDW 15.6 H Plt Count 240 Neut % (Auto) 89.7 H Lymph % (Auto) 3.7 L [place] % (Auto) 5.4 Eos % (Auto) 1.1 L Baso % (Auto) 0.1 Neut # (Auto) 54054 H Lymph # (Auto) 700 L [place] # (Auto) 1100 H Eos # (Auto) 200 Baso # (Auto) 0 Sodium 130 L Potassium 3.9 Chloride 97 L Carbon Dioxide 27 BUN 16 Creatinine 1.29 H Estimated GFR > 60 BUN/Creatinine Ratio 12.4 Glucose 104 Calcium 7.7 L Phosphorus 2.6 D Magnesium 2.1 Total Bilirubin 1.2 AST 136 H ALT 734 H Alkaline Phosphatase 129 H D Total Protein 5.6 L Albumin 2.8 L Globulin 2.8 Albumin/Globulin Ratio 1.0 PFSH Medical History CAD (coronary artery disease) Gastric ulcer Gluten enteropathy Hyperlipidemia Hypertension Surgical History History of nephrectomy Hx of CABG Family History Mother Stroke Father Stroke Social History household members: spouse Smoking Status: Current every day smoker Assessment & Plan Post-op Postoperative Procedures: Procedures Operation Date: 08/31/21 08:45 Actual Procedure Side Surgeon p Exploratory Laparotomy, Truncal vagotomy, Biliroth 2 Reconstruction Not Applicable Paolo Bradley MD Postoperative day: 3 Postoperative status: doing well Postoperative status narrative: Clinically looks well. Tolerating a regular diet. Passing gas but no bowel movement at this point. Wounds are dry and intact. Drain is serous. No evidence of infection clinically. Liver function tests were slowly declining to normal. Anemia that appears to be asymptomatic with the exception of the persistent tachycardia. I do have concerns about persistent white count at 20,000 today. Will continue IV antibiotics, and continue to follow. May require repeat CT scan for evaluation Postoperative plan narrative: General diet. Mobilization. Continue drain for now. Follow CMP and WBC
--- NOTE | 2021-09-03 11:45 | DI.RAD.S_ITS ---
PROCEDURE: XR CHEST 1V INDICATIONS: ELEVATED WBC TECHNIQUE: One view of the chest was acquired. COMPARISON: [facility], CR, XR CHEST 1V, 08/27/2021, 9:56. FINDINGS: Surgical changes and devices: Midline sternal wires Lungs and pleura: Lungs are clear. No pleural effusions or pneumothorax. Mediastinum: Mediastinal contours appear normal. Heart size is normal. Bones and chest wall: No suspicious bony lesions. Overlying soft tissues appear unremarkable. IMPRESSION: No acute cardiopulmonary findings Approved by: Taye Nichols M.D. on 09/03/2021 at 13:18
[2021-09-03] MEDS: OXYCODONE 5 MG/5 ML ORAL SOLUTION 10 MG PO ×3 (12:26→20:44)
[2021-09-03] MEDS: ACETAMINOPHEN 325 MG TABLET 650 MG PO ×3 (12:31→23:39)
[2021-09-03] MEDS: SODIUM CHLORIDE 0.9% 1,000 ML 75 ML IV (12:32)
[2021-09-03] MEDS: FLUCONAZOLE 200 MG/100 ML PIGGYBACK 100 MG IV (12:33)
--- NOTE | 2021-09-03 14:58 | PC.NURSE ---
Addendum entered by Bianka Banks R.N. 09/03/21 18:51: pt has been up to bathroom either calling for staff assist or with his , during her visit- pain controlled fairly with po oxycodone elixer with prn 1mg iv dilaudid for breakthru pain- pt had one very large bm this shift and passed much gas- Original Note: call to surgeon, Emily Bacon, to determine diet order as it stated in her note that he will be advanced to general diet- this was clarified and pt will stay at [facility] for now
[2021-09-03] MEDS: GABAPENTIN 300 MG CAPSULE PO (20:44)
[2021-09-04] VITALS: BP 151/71; PULSE 116; RESP 19; TEMP 38; O2SAT 94
[2021-09-04] MEDS: SODIUM CHLORIDE 0.9% 1,000 ML 75 ML IV (02:05)
[2021-09-04] MEDS: OXYCODONE 5 MG/5 ML ORAL SOLUTION 10 MG PO ×5 (03:05→20:46)
[2021-09-04 04:00] VITALS: BP 134/61; PULSE 101; RESP 19; TEMP 37; O2SAT 97
[2021-09-04] MEDS: PIPERACILLIN/TAZO 3.375 GM in SODIUM CHLORIDE 0.9% 100 ML IV ×3 (05:21→20:54)
[2021-09-04 05:28] LABS: Hematocrit 23.8 % (41-53); Hemoglobin 7.9 g/dL (13.5-17.5); Mean Corpuscular HGB Conc 33.2 % (30-36); Mean Corpuscular Hemoglobin 30.7 PG (26-34); Mean Corpuscular Volume 92.5 fL (80-100); Platelet Count 298 X10^3/uL (150-400); Red Blood Cell Count 2.57 X10^6/uL (4.5-5.9); Red Cell Distribution Width 15.6 % (11.6-14.8); White Blood Cell Count 15.7 X10^3/uL (4.5-11.0)
[2021-09-04 05:29] LABS: Add Manual Diff / Slide Review YES
[2021-09-04 05:32] LABS: Alanine Aminotransferase 465 IU/L (<50); Albumin 2.6 g/dL (3.5-5.0); Alkaline Phosphatase 152 U/L (38-126); Aspartate Aminotransferase 63 IU/L (17-59); BUN Creatinine Ratio 11.8 (6-22); Blood Urea Nitrogen 15 mg/dL (9-20); Calcium 7.7 mg/dL (8.4-10.2); Carbon Dioxide 25 mmol/L (22-32); Chloride 100 mmol/L (98-107); Estimated Glomerular Filt Rate > 60 mL/min (>60); Globulin 2.7 g/dL (1.7-4.1); Glucose 93 mg/dL (80-110); HEMOLYSIS < 15 (0-50); Potassium 3.8 mmol/L (3.4-5.1); Sodium 132 mmol/L (137-145); Total Protein 5.3 g/dL (6.3-8.2)
--- NOTE | 2021-09-04 05:57 | PC.NURSE ---
0550- Patient rested well through the night. Requiring less pain medication. Passing gas, and he states he feels much better. Lungs are Dim/Clear.
[2021-09-04 07:01] LABS: Neutrophils Absolute Manual 14130 /uL (3000-5900); RBC Morphology Normal Morphology; Total Cells Counted 100
[2021-09-04 07:40] VITALS: O2SAT 98
[2021-09-04 08:00] VITALS: BP 180/81; PULSE 108; RESP 18; TEMP 37.7; O2SAT 98
[2021-09-04] MEDS: ACETAMINOPHEN 325 MG TABLET 650 MG PO ×4 (08:28→23:21)
[2021-09-04] MEDS: PANTOPRAZOLE DR 40 MG TABLET PO ×2 (08:28→20:54)
[2021-09-04] MEDS: PRENATAL VIT,CALC/IRON/FOLIC 1 TABLET 1 TAB PO (09:11)
--- NOTE | 2021-09-04 10:32 | PM.PN.1 ---
Subjective Subjective Interval history: pt is feeling good, he is able to walk, denies shortness of breath, chest pain, fever, nausea, vomiting Exam Vital Signs (past 8 hours): - 09/04/21 04:00 09/04/21 07:40 09/04/21 08:00 Temperature 98.6 F 99.9 F H Pulse Rate 101 H 108 H Respiratory Rate 19 18 Blood Pressure 134/61 180/81 H Pulse Oximetry 97 98 98 Oxygen Delivery Method Room Air Oxygen Flow Rate 0 09/04/21 09:33 Temperature Pulse Rate Respiratory Rate Blood Pressure Pulse Oximetry Oxygen Delivery Method Room Air Oxygen Flow Rate Oxygen Delivery Method Room Air Oxygen Flow Rate 0 Const General: cooperative and well developed Orientation: alert, awake and oriented x3 HENMT Head: normal to inspection Ears: external ears normal Mouth: oral mucosae normal Eyes Pupils: PERRL EOM: EOM intact bilaterally Neck Neck: normal visual inspection and full ROM Resp Effort & Inspection: normal respiratory effort Auscultation: clear to auscultation bilaterally Cardio Rate: regular rate Rhythm: regular rhythm GI Palpation: soft and no hepatosplenomegaly Auscultation: normal bowel sounds Skin General: no rashes or lesions noted Neuro General: patient alert, patient awake, patient oriented x3, moves all extremities and no focal motor deficits Speech: speech normal Extrem General: normal to inspection, full ROM and no pedal edema Psych Appearance: grossly normal Objective Imaging Chest x-ray: Radiologist's impression: no acute cardiopulmonary changes Labs Result Diagrams: 09/04/21 04:55 09/04/21 04:55 Labs: Laboratory Results - last 24 hr 09/04/21 09/04/21 04:55 04:55 WBC 15.7 H RBC 2.57 L Hgb 7.9 L Hct 23.8 L MCV 92.5 MCH 30.7 MCHC 33.2 RDW 15.6 H Plt Count 298 Neut % (Auto) Not Reportable Lymph % (Auto) Not Reportable [place] % (Auto) Not Reportable Eos % (Auto) Not Reportable Baso % (Auto) Not Reportable Lymph # (Auto) Not Reportable [place] # (Auto) Not Reportable Baso # (Auto) Not Reportable Total Counted 100 Seg Neutrophils % 90.0 H Lymphocytes % (Manual) 3.0 L Monocytes % (Manual) 6.0 Eosinophils % (Manual) 1.0 L Neutrophils # (Manual) 09888 H RBC Morphology Normal morphology Sodium 132 L Potassium 3.8 Chloride 100 Carbon Dioxide 25 BUN 15 Creatinine 1.27 H Estimated GFR > 60 BUN/Creatinine Ratio 11.8 Glucose 93 Calcium 7.7 L Total Bilirubin 1.0 AST 63 H ALT 465 H Alkaline Phosphatase 152 H Total Protein 5.3 L Albumin 2.6 L Globulin 2.7 Albumin/Globulin Ratio 1.0 PFSH Medical History CAD (coronary artery disease) Gastric ulcer Gluten enteropathy Hyperlipidemia Hypertension Surgical History History of nephrectomy Hx of CABG Family History Mother Stroke Father Stroke Social History household members: spouse Smoking Status: Current every day smoker Assessment & Plan Assessment & Plan narrative: Acute upper GI bleeding perforated gastric ulcer ?-?secondary to perforated gastric ulcer ?- status post antrectomy with Billroth II reconstruction and truncal vagotomy for a perforated gastric ulcer day 3 - surgery on board - continue close monitoring - continue IV zosyn - continue IS - no stool yet but passing gas Leukocytosis trending down from 20 to 15 -continue IV zosyn Acute blood loss anemia secondary to GI bleed -s/p 4 units PRBC HGB stable 7.9 vs 8.3 -CBC daily Acute hepatic ischemia -trending LFTs Acute ischemia troponin level improved -continue telemetry monitoring Hyponatremia ?improved from 130 to 132 -continue NS DORIAN on Chronic kidney disease stage 3 - secondary to prerenal azotemia with GI bleeding, improving cr/bun -avoid nephrotoxics -BMP daily Hypertension ?- continue close monitoring - prn meds for SBP>170 DVT prophylaxis: SCD Disposition: depends on clinical course discussed with pt, rn and CM Time Spent With Patient Critical Care time: I spent a total of [] minutes of critical care time on this patient's care today; this time is exclusive of procedural time.
--- NOTE | 2021-09-04 10:49 | P.PN_ITS ---
Subjective Subjective Date Patient Seen: 09/04/21 Time Patient Seen: 10:50 Interval history: Feels better, had a BM. Wants to know when they can drive back to [place]. Exam Vital Signs (past 8 hours): - 09/04/21 04:00 09/04/21 07:40 09/04/21 08:00 Temperature 98.6 F 99.9 F H Pulse Rate 101 H 108 H Respiratory Rate 19 18 Blood Pressure 134/61 180/81 H Pulse Oximetry 97 98 98 Oxygen Delivery Method Room Air Oxygen Flow Rate 0 09/04/21 09:33 Temperature Pulse Rate Respiratory Rate Blood Pressure Pulse Oximetry Oxygen Delivery Method Room Air Oxygen Flow Rate Oxygen Delivery Method Room Air Oxygen Flow Rate 0 Narrative Exam Narrative: abdomen is distended, non tender, incision is clean, dry with tyler, drain is scant and serous. Normal respiratory Objective Labs Result Diagrams: 09/04/21 04:55 09/04/21 04:55 Labs: Laboratory Results - last 24 hr 09/04/21 09/04/21 04:55 04:55 WBC 15.7 H RBC 2.57 L Hgb 7.9 L Hct 23.8 L MCV 92.5 MCH 30.7 MCHC 33.2 RDW 15.6 H Plt Count 298 Neut % (Auto) Not Reportable Lymph % (Auto) Not Reportable [place] % (Auto) Not Reportable Eos % (Auto) Not Reportable Baso % (Auto) Not Reportable Lymph # (Auto) Not Reportable [place] # (Auto) Not Reportable Baso # (Auto) Not Reportable Total Counted 100 Seg Neutrophils % 90.0 H Lymphocytes % (Manual) 3.0 L Monocytes % (Manual) 6.0 Eosinophils % (Manual) 1.0 L Neutrophils # (Manual) 15485 H RBC Morphology Normal morphology Sodium 132 L Potassium 3.8 Chloride 100 Carbon Dioxide 25 BUN 15 Creatinine 1.27 H Estimated GFR > 60 BUN/Creatinine Ratio 11.8 Glucose 93 Calcium 7.7 L Total Bilirubin 1.0 AST 63 H ALT 465 H Alkaline Phosphatase 152 H Total Protein 5.3 L Albumin 2.6 L Globulin 2.7 Albumin/Globulin Ratio 1.0 PFSH Medical History CAD (coronary artery disease) Gastric ulcer Gluten enteropathy Hyperlipidemia Hypertension Surgical History History of nephrectomy Hx of CABG Family History Mother Stroke Father Stroke Social History household members: spouse Smoking Status: Current every day smoker Assessment & Plan Post-op Postoperative Procedures: Procedures Operation Date: 08/31/21 08:45 Actual Procedure Side Surgeon p Exploratory Laparotomy, Truncal vagotomy, Biliroth 2 Reconstruction Not Applicable Paolo Bradley MD Postoperative day: 4 Postoperative status: doing well and anemia Postoperative status narrative: Had large BM, tolerating full liquids and ensure. WBC down to 15 with addition of fluconazole Postoperative plan: see orders (remove drain) and ambulate Postoperative plan narrative: Continue antibiotics WBC and LFT's improved GI function appropriate If WBC not normalizing tomorrow, would consider post op CT scan. Time Spent With Patient Time with patient: 15-24 minutes
--- NOTE | 2021-09-04 11:18 | PC.NURSE ---
PT AMBULATED IN HALLWAY- PASSING GAS NO BM YET THIS AM- IV ABX CONTINUED AND MICAH DRAIN REMOVED THIS AM- TOLERATING PO RX WELL
--- NOTE | 2021-09-04 13:01 | CM.DPC ---
DCP Cont: Per Surgeon, pt making medical progress and drains removed today and advancing pt's diet as tolerated but not yet medically stable to d/c today. Per RN, pt has been ambulating, had bm, and tolerating po meds. Plan: SW to follow closely for pt progress for possible d/c home tomorrow back to [place] with supportive spouse and pt without current medical insurance but provided with [employer] and information. BRADLEY Barker
[2021-09-04] MEDS: FLUCONAZOLE 200 MG/100 ML PIGGYBACK 100 MG IV (13:39)
[2021-09-04 19:28] VITALS: O2SAT 96
[2021-09-04 20:00] VITALS: BP 164/78; PULSE 114; RESP 19; TEMP 37.4; O2SAT 97
[2021-09-04] MEDS: GABAPENTIN 300 MG CAPSULE PO (20:54)
[2021-09-05 04:00] VITALS: BP 137/65; PULSE 90; RESP 17; TEMP 37.2; O2SAT 93
[2021-09-05] MEDS: ACETAMINOPHEN 325 MG TABLET 650 MG PO ×2 (05:03→12:47)
[2021-09-05] MEDS: PIPERACILLIN/TAZO 3.375 GM in SODIUM CHLORIDE 0.9% 100 ML IV (05:03)
--- NOTE | 2021-09-05 06:47 | PC.NURSE ---
Shift Note: Patient was alert and orientedx4, with complained of tolerable level of pain, due pain meds given as ordered. Vital signs were stable and within acceptable limits. Post-op incision at mid-abdomen, open to air, no drainage noted, slightly distended and firm with active bowel tones. Patient verbalized that he passes gas. Patient was able to get up from bed with one person assist. Patient uses urinal with adequate urine output. Will continue to monitor.
[2021-09-05 06:49] LABS: Prealbumin 9.1 mg/dL (17.6-36.0)
[2021-09-05 06:57] LABS: C-Reactive Protein Quant 22.5 mg/dL (<1.0)
[2021-09-05 07:37] VITALS: O2SAT 94
[2021-09-05 08:06] VITALS: BP 133/63; PULSE 85; RESP 16; TEMP 37.2; O2SAT 98
[2021-09-05 09:00] LABS: Add Manual Diff / Slide Review NO; Basophils Absolute Auto 0 /uL (0-100); Basophils Percent Auto 0.2 % (0-2); Eosinophils Absolute Auto 400 /uL (0-450); Eosinophils Percent Auto 3.1 % (2-4); Hematocrit 25.3 % (41-53); Hemoglobin 8.3 g/dL (13.5-17.5); Lymphocytes Absolute Auto 600 /uL (1100-4500); Lymphocytes Percent Auto 4.1 % (25-40); Mean Corpuscular HGB Conc 32.7 % (30-36); Mean Corpuscular Hemoglobin 30.5 PG (26-34); Mean Corpuscular Volume 93.3 fL (80-100); Monocytes Absolute Auto 1000 /uL (0-900); Monocytes Percent Auto 7.5 % (3-14); Neutrophils Absolute Auto 11700 /uL (1500-7000); Neutrophils Percent Auto 85.1 % (50-75); Platelet Count 411 X10^3/uL (150-400); Red Blood Cell Count 2.72 X10^6/uL (4.5-5.9); White Blood Cell Count 13.7 X10^3/uL (4.5-11.0)
[2021-09-05] MEDS: PANTOPRAZOLE DR 40 MG TABLET PO (09:14)
[2021-09-05] MEDS: AMOXICILLIN/CLAV 875/125 MG 1 TAB PO (09:14)
[2021-09-05] MEDS: PRENATAL VIT,CALC/IRON/FOLIC 1 TABLET 1 TAB PO (09:14)
--- NOTE | 2021-09-05 10:50 | PT.IPTN ---
Current Diagnoses Gastrointestinal hemorrhage, unspecified (08/31/21) Surgery Performed Operation Date: 08/31/21 08:45 Actual Procedures p Exploratory Laparotomy, Truncal vagotomy, Biliroth 2 Reconstruction(Not Applicable) - Paolo Bradley MD Physical Therapy Treatment Note M2 PT-IP Current Condition Start: 09/01/21 17:59 Freq: NEEDED Status: Active Protocol: Document 09/05/21 10:36 SP (Rec: 09/05/21 13:18 SP [id number]) Physical Therapy Current Condition Current Condition Evaluation Date 09/01/21 Treatment Diagnosis GI bleed s/p ex lap; difficulty in walking Onset Date 08/31/21 M3 PT-IP Subjective Start: 09/01/21 17:59 Freq: NEEDED Status: Active Protocol: Document 09/05/21 10:36 SP (Rec: 09/05/21 13:18 SP [id number]) Subjective Physical Therapy Visit Type Type Treatment Note Visit Start Time 10:36 Visit Stop Time 10:50 Total Visit Minutes 14 Notes Vitals taken during tx: seated resting in chair: BP 152/66 HR 99 SaO2 100%. in room, assisted with physical mobility needed throughout tx. Number of CORE BLOWER Visits 2 Physical Therapy Visit Comments Patient Comments Pt agreeable to mobilizing with CORE BLOWER including stair mgt assessment. Therapy Pain Assessment Pain When Pain Assessed During Mobility Pain Present Pain Present Pain Reported Location abdomen Intensity 4 Scale Used Numeric (0 - 10) Description Aching,With Movement Pain Behaviors Facial Grimacing Pain Management Techniques Modification of Treatment,Re- positioning,Timing of Activity with Medications M4 PT-IP Mobility and Gait Start: 09/01/21 17:59 Freq: NEEDED Status: Active Protocol: Document 09/05/21 10:36 SP (Rec: 09/05/21 13:18 SP [id number]) PT-Transfer Assessment Sit to and From Stand Sit to and from Stand Standby Assistance Equipment Transfer Assistive Device None,Gait Belt,Front Wheeled Walker Orthotic/Prosthetic Devices or Brace: No Transfers Transfer Destination Chair Transfer Technique pt ambulated w/ no AD initially then use of FWW Transfer Ability Level of Assist Standby Assistance,Contact Guard Assistance,Minimal Assistance,1 Person Assistance ,Use of Upper Extremities Comments Mobility Comments CORE BLOWER donned gait belt high at chest to comfort fit for safety mobilizing. Pt completed sit>stand SBA, noted little lean to L recorrected with cues. Pt noted LOB to L first few steps away from chair CGA and use of contact wall near bathroom for self recovery. Pt and stated has been doing well without AD walks with nursing around nursing station and didn't note deviations or LOB. CORE BLOWER and provided FWW for safety stability and education for energy conservation use during mobility, states will be borrowing one upon DC, agreed more stable. Progressed gait into hallway w/ FWW SBA by and CORE BLOWER managed IV pole ascend/descend 1 PF step (son has to enter home, visiting and returning to) CGA >close SBA self FWW mgt, cues as needed for sequencing. Gait around nursing station SBA approx 140 ft, stable no deviations. Pt returned to room parked FWW near sink and walked back to chair 5 ft, close SBA noted trunk sways but no LOB. Pt agreed use of FWW at this time. Pt is ok to return to son's home with to assist him when medically cleared. Both state will be staying in [place] until seen outpt follow up ok to return drive home to [place]. Gait Assessment Gait Gait Assistance Required: Standby Assistance,Contact Guard Assist,Minimum Assistance,1 Person Assist Distance (Feet) 140 Able to Maintain Weight Bearing Status Yes During Gait Assistive Devices Assistive Device None,Gait Belt,Front Wheeled Walker Orthotic/Prosthetic Devices or Brace: No Gait Deviations General Gait Pattern Antalgic,Decreased Stride Length,Decreased Feet Clearance,Lateral Trunk Lean Factors Limiting Gait Function Factors Limiting Gait Function Decreased Activity Tolerance, Decreased Strength,Pain,Poor Balance,Poor Safety Awareness Comments Gait Comments L trunk lean, LOB to L initial gait without AD CGA- Min A and self contact wall recovery , close SBA using FWW. Stair Climbing Assessment Evaluation Level of Assist On Stairs Standby Assistance,Contact Guard Assistance Devices Stair Climbing Assistive Devices Front Wheel Walker Technique/Endurance Stair Climbing Direction Ascend and Descend Stair Climbing Technique Step to Step Number of Steps Climbed 1 Stair Climbing Set # Repetitions (reps) 1 Comments Stair Climbing Comments see mobility comments PT-Balance Assessment Sitting Balance and Reactions Static Sitting Balance Ability Normal Dynamic Sitting Balance Ability Good Standing Balance and Reactions Static Standing Balance Ability Good Dynamic Standing Balance Ability Fair Device Used FWW, poor no AD M5 PT-IP Objective Assessments Start: 09/01/21 17:59 Freq: NEEDED Status: Active Protocol: Document 09/01/21 15:54 AB (Rec: 09/01/21 18:14 AB [id number]) Orientation Orientation/Cognition Level of Alertness Alert Orientation Name,Age,Birthday,Month,Date, Year,Day of Week,Place, Situation Language Function Ability No Deficits Noted Safety Awareness Understands Safety Issues Memory Description No Deficits Noted Gross Range of Motion Lower Extremity ROM Assessment Within Functional Limits Strength Lower Extremity Strength Assessment Within Functional Limits Coordination Assessment Gross Coordination Gross Coordination WNL Sensation Assessment Sensation Gross Sensation WNL Muscle Tone Muscle Tone WNL Yes M6 PT-IP Treatment Start: 09/01/21 17:59 Freq: NEEDED Status: Active Protocol: Document 09/05/21 10:36 SP (Rec: 09/05/21 13:18 SP [id number]) Physical Therapy Treatment Education Education Provided Precautions,Safety M7 PT-IP Assessment and Plan Start: 09/01/21 17:59 Freq: NEEDED Status: Active Protocol: Document 09/05/21 10:36 SP (Rec: 09/05/21 13:18 SP [id number]) PT Summary Assessment and Plan Potential Rehabilitation Potential Good Status of Condition at Evaluation Stable Summary Impairments Pain,ROM,Strength,Balance, Coordination,Sensation,Tone, Cognition,Bed Mobility, Transfers,Gait,Activity Tolerance Progress Towards Goals Progressing Toward Goals,Slow Progress due to Activity Tolerance Assessment Summary Pt requiring CG- 5%A without AD, LOB support required. SBA during gait and transfers using FWW. Complete PF step w/ FWW CGA. Pt is ok to return to son's house visiting with to assist him when medically cleared, able acquire FWW for use at [place]. Recommending HHPT vs outpt therapy for progression in balance toward PLOF no AD. Goals Bed Mobility Goal Independent Transfer Goal Independent,Front Wheeled Walker Gait Goal Independent,Front Wheel Walker Gait Distance 300 Other Goals improve transfers and ambulation without AD ~ 250 ft mod I up/down 1 step mod I Days to Meet Goals 10 Frequency of Treatment Frequency Of Treatment Once a Day Treatment Plan Physical Therapy Treatment Plan Bed Mobility Training,Transfer Training,Gait Training, Therapeutic Exercise,Balance Retraining,Post Op Education, Discharge Planning,Hot or Cold Pack,Neuromuscular Re-ed, Coordination Retraining,Manual Therapy Other Recommendations and Next Treatment Gait LRAD, balance activities. Focus Precautions Abdominal Surgery Precautions Log Roll,Lifting Restrictions, Gait Belt above Incisional Area Recommendations To Nursing Amount of Assist Needed 1 Person Assist Discharge Recommendations PT Discharge Recommendations Home with Assistance,Home with / Assist Available,Home Health,Outpatient PT Equipment Needed for Home Before Able acquire FWW borrow upon Discharge DC. Transportation Needs at Discharge Private Vehicle
--- NOTE | 2021-09-05 11:32 | P.PN_ITS ---
Subjective Subjective Interval history: pt had a stool yesterday, denies abdominal pain, nausea, vomiting Exam Vital Signs (past 8 hours): - 09/05/21 04:00 09/05/21 07:37 09/05/21 08:06 Temperature 98.9 F 99.0 F Pulse Rate 90 85 Respiratory Rate 17 16 Blood Pressure 137/65 133/63 Pulse Oximetry 93 94 98 Oxygen Delivery Method Room Air Oxygen Flow Rate 0 09/05/21 08:00 Temperature Pulse Rate Respiratory Rate Blood Pressure Pulse Oximetry Oxygen Delivery Method Room Air Oxygen Flow Rate Oxygen Delivery Method Room Air Oxygen Flow Rate 0 Const General: cooperative and well developed Orientation: alert, awake and oriented x3 HENMT Head: normal to inspection Ears: external ears normal Mouth: oral mucosae normal Eyes Pupils: PERRL EOM: EOM intact bilaterally Neck Neck: normal visual inspection and full ROM Resp Effort & Inspection: normal respiratory effort Auscultation: clear to auscultation bilaterally Cardio Rate: regular rate Rhythm: regular rhythm GI Palpation: soft and no hepatosplenomegaly Auscultation: normal bowel sounds Skin General: no rashes or lesions noted Neuro General: patient alert, patient awake, patient oriented x3, moves all extremities and no focal motor deficits Speech: speech normal Extrem General: normal to inspection, full ROM and no pedal edema Psych Appearance: grossly normal Objective Labs Result Diagrams: 09/05/21 08:35 09/04/21 04:55 Labs: Laboratory Results - last 24 hr 08/31/21 09/05/21 09/05/21 07:09 04:30 08:35 WBC 13.7 H RBC 2.72 L Hgb 8.3 L Hct 25.3 L MCV 93.3 MCH 30.5 MCHC 32.7 RDW 16.0 H Plt Count 411 H Neut % (Auto) 85.1 H Lymph % (Auto) 4.1 L [place] % (Auto) 7.5 Eos % (Auto) 3.1 Baso % (Auto) 0.2 Neut # (Auto) 59318 H Lymph # (Auto) 600 L [place] # (Auto) 1000 H Eos # (Auto) 400 Baso # (Auto) 0 C-Reactive Protein 22.5 H Prealbumin 9.1 L Blood Type O Positive Antibody Screen Negative Crossmatch See Detail [facility] Medical History CAD (coronary artery disease) Gastric ulcer Gluten enteropathy Hyperlipidemia Hypertension Surgical History History of nephrectomy Hx of CABG Family History Mother Stroke Father Stroke Social History household members: spouse Smoking Status: Current every day smoker Assessment & Plan Assessment & Plan narrative: Acute upper GI bleeding perforated gastric ulcer ?-?secondary to perforated gastric ulcer ?- status post antrectomy with Billroth II reconstruction and truncal vagotomy for a perforated gastric ulcer day 4 - surgery on board - continue close monitoring - continue IV zosyn - continue IS - had stool Leukocytosis trending down from 17 to 13 -continue IV zosyn and fluconazole per surgery recs Acute blood loss anemia secondary to GI bleed -s/p 4 units PRBC HGB stable -CBC daily Acute hepatic ischemia -trending LFTs Acute ischemia troponin level improved -continue telemetry monitoring Hyponatremia ?improving -continue NS DORIAN on Chronic kidney disease stage 3 - secondary to prerenal azotemia with GI bleeding, improving cr/bun -avoid nephrotoxics -BMP daily Hypertension ?- continue close monitoring - prn meds for SBP>170 DVT prophylaxis: SCD Disposition: depends on clinical course discussed with surgery Dr Bacon, pt, rn Time Spent With Patient Critical Care time: I spent a total of [] minutes of critical care time on this patient's care today; this time is exclusive of procedural time.
--- NOTE | 2021-09-05 12:57 | DIET.CONS2 ---
Dietary Inpatient Consultation Note Admission Date: 08/31/2021 08:29 Provided d/c nutrition information to pt and spouse. High pro diet for next 4w c protein drinks when driving back home to [place]. Pt open to dairy, eggs, soft cooked meats. Diet: 09/05/21 Lunch General (Regular) Diet Diet Modifications: high PRO, enlive bid Nutrition Percent Meal Consumed 100% 09/05/21 09:18 Percent Meal Consumed 100% 09/04/21 13:30 Percent Meal Consumed 5% 09/04/21 09:15 Percent Meal Consumed 25% 09/03/21 19:00 Percent Meal Consumed 50% 09/03/21 13:27 Electronically Signed by: Pallavi Diana 09/05/21 12:57 Clinical Dietitian [address] [id number]
--- NOTE | 2021-09-05 13:39 | PC.NURSE ---
Patient very eager for discharge today, advanced diet as tolerated for lunch. IV dc'd intact. Discharge instructions reviewed with patient and his , they state understanding and have no further questions at this time. Patient states he will have follow up with this week with surgeon prior to leaving for home in [place], he plans to stay with his family he is visiting here in [place] until deemed safe to travel. Patient has no further questions at this time, escorted out via wheelchair by CAMPUS ADMINISTRATIVE ASSISTANT to discharge with his . Patient instructed to call surgeons office with questions or concerns per dc instructions, or to seek care for new or worsening symptoms.
--- NOTE | 2021-09-05 14:56 | PM.DS.1 ---
History of Present Illness History of Present Illness Date Patient Seen: 09/05/21 Time Patient Seen: 10:05 Chief complaint: passed out, Narrative: presented w hemorrhagic shock, received blood products and partial gastrictomy, Billroth 2 with vagotomy. 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 08/31/21 16:00 Consult to Dietitian, Adult Routine Comment: Reason For Exam: possible TPN recommendations 09/01/21 10:42 Consult to Occupational Therapy Evaluate & Treat Comment: Physician Instructions: Evaluate and treat 09/01/21 10:44 Consult to Physical Therapy Evaluate & Treat Comment: Physician Instructions: Evaluate and Treat Discharge provider: Melonie Bacon MD Summary Status at Discharge Cognitive/behavioral status at discharge: oriented and at baseline, oriented Functional status at discharge: independent ambulation Overall status at discharge: patient is progressing back to baseline Time Spent with Patient Time spent: Greater than 30 minutes Exam Vital Signs (past 8 hours): - 09/05/21 07:37 09/05/21 08:06 09/05/21 08:00 Temperature 99.0 F Pulse Rate 85 Respiratory Rate 16 Blood Pressure 133/63 Pulse Oximetry 94 98 Oxygen Delivery Method Room Air Room Air Oxygen Flow Rate 0 Oxygen Delivery Method Room Air Oxygen Flow Rate 0 Narrative Exam Narrative: wound intact. good gi function. no complications. has resolving leukocytosis, resolving shock liver. has persistent anemia treated w po iron, malnutrition treated w nutitional supplements. Objective Labs Result Diagrams: 09/05/21 08:35 09/04/21 04:55 Labs: Laboratory Results - last 24 hr 08/31/21 09/05/21 09/05/21 07:09 04:30 08:35 WBC 13.7 H RBC 2.72 L Hgb 8.3 L Hct 25.3 L MCV 93.3 MCH 30.5 MCHC 32.7 RDW 16.0 H Plt Count 411 H Neut % (Auto) 85.1 H Lymph % (Auto) 4.1 L [place] % (Auto) 7.5 Eos % (Auto) 3.1 Baso % (Auto) 0.2 Neut # (Auto) 16227 H Lymph # (Auto) 600 L [place] # (Auto) 1000 H Eos # (Auto) 400 Baso # (Auto) 0 C-Reactive Protein 22.5 H Prealbumin 9.1 L Blood Type O Positive Antibody Screen Negative Crossmatch See Detail [facility] Medical History CAD (coronary artery disease) Gastric ulcer Gluten enteropathy Hyperlipidemia Hypertension Surgical History History of nephrectomy Hx of CABG Family History Mother Stroke Father Stroke Social History household members: spouse Smoking Status: Current every day smoker Discharge Assessment & Plan Assessment and Plan Assessment: resolved hemorrhagic shock acute blood loss anemia on vitamin resolving shock liver resolving transient cardiac ischemia from hemorrhagic shock peptic ulcer disease treated w antrectomy, billroth II, vagotomy (discharged on protonix 40mg daily for 4 weeks) malnutrition with muscle wasting, weight loss and prealbumin of 9. home on TID ensure. Plan: discharge with 5 days Augmentin, PPI, surgical tyler to be removed in clinic during postop check this week in anticipation of returning home to [place]. Discharge Plan Discharge Plan Patient Disposition: Home Discharge orders & Medications Prescriptions: New acetaminophen 325 mg Tablet 650 mg PO Q6H Qty: 60 0RF oxycodone 5 mg/5 mL Solution 10 mg PO Q4HR PRN (Reason: Pain, Severe (7-10)) Qty: 250 0RF pantoprazole 40 mg Tablet,Delayed Release (Dr/Ec) 40 mg PO 0700,2100 Qty: 30 0RF nystatin 100,000 unit/gram Cream 1 applic topical BID Qty: 1 0RF gabapentin [Neurontin] 300 mg Capsule 300 mg PO BEDTIME Qty: 30 0RF amoxicillin-pot clavulanate 875-125 mg Tablet 1 tab PO BID Qty: 10 0RF Prenatabs Rx 29 mg iron- 1 mg Tablet 1 tab PO DAILY Qty: 30 0RF Continued lorazepam 0.5 mg tablet 0.5 tab PO BID Label Comments: TAKE 1 TABLET BY MOUTH TWICE DAILY NEEDED FOR ANXIETY FOR 2 DAYS amlodipine 5 mg tablet 1 tab PO BID Label Comments: TAKE ONE-HALF TABLET BY MOUTH AT BEDTIME losartan 50 mg tablet 1 tab PO DAILY Label Comments: TAKE ONE TABLET BY MOUTH ONE TIME DAILY carvedilol 6.25 mg tablet 1 tab PO BID Label Comments: TAKE ONE TABLET BY MOUTH TWICE A DAY atorvastatin 20 mg tablet 1 tab PO DAILY Label Comments: TAKE ONE TABLET BY MOUTH ONE TIME DAILY IN THE EVENING Rx Instructions: takes in the evening spironolactone 25 mg tablet 1 tab PO DAILY Label Comments: TAKE ONE TABLET BY MOUTH ONE TIME DAILY dapsone 100 mg tablet 1 tab PO DAILY Label Comments: TAKE ONE TABLET BY MOUTH ONE TIME DAILY isosorbide dinitrate 5 mg tablet 1 tab PO BID Label Comments: TAKE ONE TABLET BY MOUTH TWICE A DAY Discontinued pantoprazole 40 mg tablet,delayed release (DR/EC) 40 mg PO BID 30 Days Qty: 60 0RF Follow up/Referrals: Paolo Bradley MD [Physician] - (See him later this week, he wants to go back to [place]) Diet/Activity/Treatments Diet comment: small frequent meals, high protein Activity: no lifting greater than 15 lbs for 4 weeks Visit Report/Discharge Packet Instructions: DI for Exploratory Laparotomy, DI for Prescription Opioid Use, [facility]: Wound Care Stand Alone Forms: Surgery Discharge
== END 2021-09-05 13:10 | disposition home or self-care (01) | DRG 326 ==
LOC: ED 08:13 → AC 08:30 → ICU 09:34
PROVIDERS: Anesthesiology; Internal Medicine; Internal Medicine Critical Care Medicine; Internal Medicine Pulmonary Disease; Surgery; Admitting Provider Internal Medicine; Emergency Provider Emergency Medicine; Referring Provider Emergency Medicine; Visit Provider Internal Medicine
PROC: 0DB70ZZ Excision of Stomach, Pylorus, Open Approach (ICD-10-PCS; CPT 49000; principal; 2021-08-31 08:45)
DX: K25.6 Chronic or unspecified gastric ulcer with both hemorrhage and perforation (principal); K65.9 Peritonitis, unspecified; K72.00 Acute and subacute hepatic failure without coma; R57.8 Other shock; D62 Acute posthemorrhagic anemia; N17.9 Acute kidney failure, unspecified; I24.9 Acute ischemic heart disease, unspecified; E46 Unspecified protein-calorie malnutrition; E78.5 Hyperlipidemia, unspecified; I12.9 Hypertensive chronic kidney disease with stage 1 through stage 4 chronic kidney disease, or unspecified chronic kidney disease; N18.30 Chronic kidney disease, stage 3 unspecified; I25.10 Atherosclerotic heart disease of native coronary artery without angina pectoris; F17.210 Nicotine dependence, cigarettes, uncomplicated; Z95.1 Presence of aortocoronary bypass graft; Z68.21 Body mass index [BMI] 21.0-21.9, adult; Z20.822 Contact with and (suspected) exposure to COVID-19
CPT/HCPCS: 36415; 36430; 71045; 80053; 82272; 82550; 82962; 83735; 84100; 84134; 84460; 84484; 85007; 85014; 85018; 85025; 86140; 86850; 86900; 86901; 86927; 87635; 87797; 93005; 93010; 94762; 96374; 96375; 97116; 97161; 97165; 97535; 99284; 99285; 99291; 99292; C9803; P9016; C9113; J0330; J1100; J1170; J1450; J2250; J2405; J2543; J2704; J2765; J3010